=== PATIENT | male | born 1930 | race Caucasian/White ===

== ENCOUNTER → 2017-07-16 | Outpatient (CLI) | payer MEDICARE, BC ==
[2017-07-16 14:21] LABS: CH 34.2; CHCM 33.2; HDW 2.45; HGB 13.8 gm/dL (13.0-17.5); MCHC 32.9 g/dL (31.0-37.0); MCV 103.4 fL (80.0-100.0); Macrocytosis Slight; Mean Platelet Volume 6.4; RBC 4.06 m/uL (4.30-5.90); RDW 13.9 % (11.5-15.5); WBC 10.6 k/uL (3.8-10.6)
[2017-07-16 14:28] LABS: Appearance,Urine Cloudy (Clear); Bacteria,Urine Rare /hpf; Bilirubin,Urine Negative (Negative); Glucose,Urine (UA) Negative (Negative); Ketones,Urine Negative (Negative); Leukocyte Esterase,Urine Negative (Negative); Mucus,Urine Many /hpf; Nitrite,Urine Negative (Negative); PH, Urine 5.5 (5.0-8.0); Particle Count 12224; Protein,Urine Trace (Negative); RBC,Urine 2 /hpf (0-5); Specific Gravity,Urine 1.025 (1.001-1.035); Squamous Epithelial Cell,Urine <1 /hpf (0-4); UA Billing (MACRO vs. MICRO) MICRO; WBC,Urine 3 /hpf (0-5)
[2017-07-16 14:36] LABS: AST 19 U/L (17-59); Blood Urea Nitrogen 18 mg/dL (9-20); Chloride 103 mmol/L (98-107); Partial Thromboplastin Time 24.3 sec (22.0-30.0); Potassium 5.6 mmol/L (3.5-5.1); Prothrombin Time 10.3 sec (9.0-12.0); Sodium 142 mmol/L (137-145); Total Bilirubin 0.6 mg/dL (0.2-1.3)
[2017-07-16 14:45] LABS: ALT 32 U/L (21-72); Alkaline Phosphatase 129 U/L (38-126); Anion Gap 9 mmol/L; Carbon Dioxide 30 mmol/L (22-30); Glucose 98 mg/dL (74-99); Non-African American GFR(MDRD) >60 (>60 ml/min/1.73 sqM); Total Protein 6.9 g/dL (6.3-8.2)
== END | disposition home or self-care (01) ==
LOC: LABPAT 13:38
PROVIDERS: ATTEND Orthopaedic Surgery
DX: Z01.812 Encounter for preprocedural laboratory examination (principal); Z79.01 Long term (current) use of anticoagulants
CPT/HCPCS: 80053; 81001; 85027; 85610; 85730; 87070

== ENCOUNTER → 2017-07-27 | Outpatient (CLI) | payer MEDICARE, BC | END | disposition home or self-care (01) | LOC: LABWHC1 10:50 | PROVIDERS: ATTEND Family Medicine | DX: E87.6 Hypokalemia (principal) | CPT/HCPCS: 36415; 84132 ==

== ENCOUNTER 2017-07-28 09:44 | Inpatient (IN) | payer MEDICARE, BC ==
[2017-07-23 11:52] VITALS: BMI 24.3
[~2017-07-28 09:44] MED LIST: ACETAMINOPHEN TAB 500 MG TAB PO ONE; DEXAMETHASONE SOD PHOSPHATE 10 MG/ML 1 ML VIAL IV ONE; HYDROmorphone 1 MG/ML 1 ML SYRINGE IVP PRN; LIDOCAINE 1% 20 ML VIAL (10MG/ML) FOR IV START INTRADERMA PRN; MELOXICAM 7.5 MG TAB PO ONE; MIDAZOLAM 2 MG/2 ML VIAL IV PRN; ONDANSETRON 4 MG/2 ML VIAL IVP ONE; ROPIVACAINE 246.25 MG, EPINEPHrine 0.5 MG, KETOROLAC 30 MG, cloNIDine HCL/PF 80 MCG, WA... MISCELLANE ONE; SCOPOLAMINE 1.5MG/72HR PATCH TRANSDERM ONE; TRANEXAMIC ACID 1,000 MG in SODIUM CHLORIDE 0.9% 100 ML IVPB ONE; ceFAZolin 2 GM in SODIUM CHLORIDE 0.9% 100 ML IVPB ONE
[2017-07-28] MEDS: LACTATED RINGERS 1,000 ML IV SCH (10:51)
[2017-07-28] MEDS ORDERED: ROPIVACAINE 1,100 MG, SODIUM CHLORIDE 0.9% 330 ML MISCELLANE PRN ×2 (12:00)
--- NOTE | 2017-07-28 12:00 | P.ONQ ---
Anesthesiology Proc Note - PNB - Peripheral Nerve Block Performed Right Adductor Canal Infusion Indication: Acute Post-Operative Pain Sedation Type: Sedate with meaningful contact maintained Preparation: Sterile Prep Position: Supine Needle Types: On-Q Needle Size: 100mm (4") Needle Gauge: 18 Technique: Ultrasound Blood Aspirated: No Pain Paresthesia on Injection Noted: No Resistance on Injection: Normal Events: Uneventful and Well Tolerated
[2017-07-28] MEDS ORDERED: SODIUM CHLORIDE 0.9% 100 ML BAG ONE (12:48)
[2017-07-28] MEDS ORDERED: fentaNYL (PF) 50 MCG/ML 2 ML AMP ONE (12:48)
[2017-07-28] MEDS ORDERED: TRANEXAMIC ACID 1,000 MG/10 ML VIAL ONE (12:48)
[2017-07-28] MEDS ORDERED: PROPOFOL 10 MG/ML 20 ML VIAL IV ONE (12:48)
[2017-07-28] MEDS ORDERED: MIDAZOLAM 2 MG/2 ML VIAL ONE (12:48)
[2017-07-28] MEDS ORDERED: ceFAZolin 3,000 MG in SODIUM CHLORIDE 0.9% IRRIGATIO 3,000 ML IRRIGATION ONE (13:30)
[2017-07-28] MEDS ORDERED: LACTATED RINGERS 1,000 ML IV ONE (14:34)
[2017-07-28] MEDS ORDERED: HYDROcodone/APAP 5-325MG 1 EACH TAB PO PRN ×2 (14:41)
[2017-07-28] MEDS ORDERED: HYDROmorphone 1 MG/ML 1 ML SYRINGE IVP PRN ×2 (14:41)
[2017-07-28] MEDS ORDERED: hydrOXYzine PAMOATE 25 MG CAP PO PRN (14:41)
[2017-07-28] MEDS ORDERED: BISACODYL 10 MG SUPP RECTAL PRN (14:41)
[2017-07-28] MEDS ORDERED: NA PHOS,M-B/NA PHOS,DI-BA 133 ML ENEMA RECTAL PRN (14:41)
[2017-07-28] MEDS ORDERED: ONDANSETRON 4 MG/2 ML VIAL IVP PRN (14:41)
[2017-07-28] MEDS ORDERED: MAGNESIUM HYDROXIDE 2,400 MG/10 ML CUP PO PRN (14:41)
[2017-07-28] MEDS ORDERED: DIAZEPAM 5 MG TAB PO PRN ×2 (14:41)
[2017-07-28] MEDS ORDERED: NALOXONE 0.4 MG/ML 1 ML VIAL IV PRN (14:41)
--- NOTE | 2017-07-28 14:41 | P.OP ---
Date of Procedure: 07/28/17 Preoperative Diagnosis: Severe osteoarthritis of the right knee Postoperative Diagnosis: Severe osteoarthritis of the right knee Procedure(s) Performed: Right total knee arthroplasty Implants: Ashley [employer] Nephew Oxinium femoral component size 6, right Ashley & Nephew Genie II right nonporous tibial baseplate size 7 Ashley [employer] Nephew size 11 mm Legion XLPE high flexion articular insert, size 7-8 Ashley [employer] Nephew Genie II resurfacing patellar component, 32 mm All components were cemented using Reece bone cement.. The articulation is ceramic on polyethylene. Anesthesia: spinal Surgeon: Raleigh Cassidy Airfield Operations Specialist #1: Martine Georges Estimated Blood Loss (ml): 50 Pathology: other (Bone and cartilage) Condition: stable Disposition: PACU Indications for Procedure: After failure of conservative treatment we discussed the surgical and nonsurgical treatment options at length. Patient wishes to proceed with a total knee arthroplasty. Complications specific to this procedure were discussed at length, including but not limited to infection, bleeding, stiffness , and nerve injury. Patient is aware of all these complications and informed consent was obtained Operative Findings: The operative findings are consistent with severe osteoarthritis of the right knee Description of Procedure: Patient was seen in the preoperative area consent was reviewed and operative site was marked with a skin marker. An adductor canal pain catheter was placed by anesthesia in the preoperative area. Patient was then brought to the operating room and given preoperative antibiotics intravenously. A spinal anesthetic was administered by the anesthesia department. A tourniquet was placed on the upper thigh and the lower extremity was prepped and draped in usual sterile fashion. A gram of transexamic acid was given. A universal timeout was then performed which confirmed the patient's name, surgical site, ALLERGIES, and consent. The lower extremity was then exsanguinated and tourniquet was inflated to 250 mmHg. A standard and anterior midline approach to the knee was performed. The skin and subcutaneous tissue was dissected down to the patellar tendon. A medial parapatellar arthrotomy was then performed. The knee was then extended, the patellar was everted, and the knee was again flexed. Anterior horns of both menisci were excised, and a release was performed to the posterior medial aspect of the knee. On gross visual inspection, there was complete loss of articular cartilage in the medial and patellofemoral joint spaces. There was also significant cartilage damage in the lateral compartment. There were multiple periarticular osteophytes which were then removed with a Ronguer. The femoral canal was then opened with the appropriate drill, and the intramedullary femoral cutting guide was then placed and set for 4 of valgus. The distal femoral cutting block was then pinned in place, and the distal femur was then cut. The cutting block was then removed and the cut was checked for flatness. Next, the sizing guide was then placed and set for 3 external rotation based off of the epicondylar axis and Whitesides line. After the femur was sized, the appropriate 4-in-1 cutting block was then pinned in place. The anterior condyles were cut without notching. The posterior and chamfer cuts were performed while protecting the collateral ligaments. The cutting block was then removed, and the femoral canal was plugged with autologous bone. Attention was then directed to the tibia. The remaining ACL was removed with a Ronguer, and the tibia was then gently subluxed forward with a large bent knee retractor. Any remaining menisci was excised. The posterior lateral corner was cauterized in order to cauterize the lateral geniculate artery. The extra medullary tibial cutting guide was then placed, set for the appropriate rotation , slope, and depth of resection. The proximal tibia cutting guide was then pinned in place. Proximal tibia was then cut and sized. Next trials were then placed with the appropriate-sized insert. The knee was able to fully extend and flex to 130 and was stable throughout all range of motion. The knee was then extended, patella everted. Patella was then measured, and then using an osteotomy guide, the patella was cut at the appropriate level. The patella was then measured and drilled and the patella trial was then placed. The knee was then taken through range of motion with the patella trial and the patella tracked normally. The knee was then extended patella trial was then removed and the patella was everted. Knee was then flexed and lug holes were drilled through the femoral trial and the femoral trial was then removed. The tibial was then exposed, and the tibial broach guide was then pinned in place after it was set for the appropriate rotation to allow for the most coverage without overhang. The tibia was then reamed and broached. The cut surfaces of bone were then irrigated with pulsatile lavage. The posterior structures were injected with the ropivacaine solution. The components were then opened, the cement was mixed, and the components were then cemented in place. The cement was allowed to harden with the knee in full extension. While the cement was hardening, the remaining soft tissues were then injected with a ropivacaine solution, which consisted of 246.25 mg of ropivacaine, 0.5 mg of epinephrine, 30 mg of Toradol, 80 g of clonidine, and 48.45 mL of sterile water, for a total of 100 mL of fluid injected. After the cemented hardened. The tourniquet was released, and hemostasis was obtained. A second gram of transexamic acid was given. The knee was again irrigated. The knee was again taken through range of motion and found to be stable throughout all range of motion of 0-130, and the patella tracked normally. The fascia was then closed with #2 strata fix suture. The subcutaneous tissue was closed with 3-0 Vicryl and 3-0 strata fix. Dermabond tape was used for the skin and placed with the knee in flexion. The patient was placed in a sterile dressing. Patient was then transferred to recovery room in stable condition. The programs assistant MIKIE Montilla was required due the complexity surgery and the need for a skilled surgical services assistant. She assisted in positioning, draping, retraction, and closure of the wound.
--- NOTE | 2017-07-28 15:33 | XR ---
EXAMINATION TYPE: XR knee limited RT DATE OF EXAM: 07/28/2017 COMPARISON: None HISTORY: Postop alignment TECHNIQUE: 2 view right knee FINDINGS: Tibial femoral components are in place. No acute fractures are evident. Postsurgical curry es are evident. Vascular calcification is present. IMPRESSION: 1. No acute fractures post knee replacement..
[2017-07-28] MEDS: ceFAZolin 2 GM in SODIUM CHLORIDE 0.9% 100 ML IVPB SCH (18:02)
[2017-07-28] MEDS: SODIUM CHLORIDE 0.9% 1,000 ML IV SCH (18:03)
[2017-07-28] MEDS: SENNOSIDES-DOCUSATE SODIUM 1 EACH TAB PO SCH (22:01)
[2017-07-28] MEDS: ASPIRIN 325 MG TAB PO SCH (22:02)
[2017-07-29] MEDS: ceFAZolin 2 GM in SODIUM CHLORIDE 0.9% 100 ML IVPB SCH ×2
[2017-07-29] MEDS: LACTATED RINGERS 1,000 ML IV SCH (05:18)
[2017-07-29 07:11] LABS: Basophils % (A) 0 %; CH 33.7; CHCM 33.3; Eosinophils % (A) 0 %; HCT 31.1 % (39.0-53.0); HDW 2.49; Luc # (Auto) 0.17; Luc % (Auto) 2; Lymphocytes # (A) 1.6 k/uL (1.0-4.8); Lymphocytes % (A) 14 %; MCH 34.4 pg (25.0-35.0); MCHC 33.9 g/dL (31.0-37.0); MCV 101.4 fL (80.0-100.0); Macrocytosis Slight; Mean Platelet Volume 6.3; Monocytes # (A) 0.5 k/uL (0-1.0); Monocytes % (A) 4 %; Neutrophils # (A) 9.1 k/uL (1.3-7.7); Neutrophils % (A) 80 %; RBC 3.07 m/uL (4.30-5.90); RDW 13.8 % (11.5-15.5); WBC 11.3 k/uL (3.8-10.6); WBC (Perox) 11.82
[2017-07-29 07:18] LABS: HGB 10.5 gm/dL (13.0-17.5)
[2017-07-29 08:19] LABS: Glucose,Whole Blood 152 mg/dL (75-99)
[2017-07-29] MEDS: ASPIRIN 325 MG TAB PO SCH ×3 (09:00→21:38)
[2017-07-29] MEDS: MELOXICAM 7.5 MG TAB PO SCH (09:09)
--- NOTE | 2017-07-29 09:09 | P.PN ---
Subjective Principal diagnosis: Primary osteoarthritis of the right knee, status post right total knee arthroplasty. This is an 87-year-old male who is status post right total knee arthroplasty. This is postoperative day #1. Patient is seen and evaluated at bedside with Dr. Raleigh Cassidy. Today patient was left alone in the bathroom while complaining of dizziness and patient fell headfirst onto the bathroom floor. Patient sustained an abrasion to the right side forehead. Patient denies any knee pain after the fall. Patient does complain of a mild headache after the fall. Patient denies any fever/chills, visual changes, neck pain, numbness, weakness or tingling. Objective - Vital Signs Vital signs: Vital Signs Temp 97.4 F L 07/29/17 07:09 Pulse 74 07/29/17 07:09 Resp 16 07/29/17 07:09 BP 110/59 07/29/17 07:09 Pulse Ox 94 L 07/29/17 07:09 Intake & Output 07/28/17 07/29/17 07/29/17 18:59 06:59 18:59 Intake Total 1201 Output Total 50 400 Balance 1151 -400 Weight 74.843 kg Intake: IV 1201 Output: Urine 400 Estimated Blood Loss 50 Other: Voiding Method Urinal # Voids 0 1 - Exam On exam patient is in no acute distress. There is an abrasion to the right side forehead. Patient is answering questions appropriately. Calf is soft and nontender. Dressing is clean, dry, and intact. Patient has good range of motion of the right lower extremity. Neurovascular status intact. Patient has full foot and ankle motion. - Labs CBC & Chem 7: 07/29/17 06:15 Labs: Abnormal Lab Results - Last 24 Hours (Table) 07/29/17 07/29/17 Range/Units 06:15 07:59 WBC 11.3 H (3.8-10.6) k/uL RBC 3.07 L (4.30-5.90) m/uL Hgb 10.5 L D (13.0-17.5) gm/dL Hct 31.1 L (39.0-53.0) % MCV 101.4 H (80.0-100.0) fL Neutrophils # 9.1 H (1.3-7.7) k/uL POC Glucose (mg/dL) 152 H (75-99) mg/dL Assessment and Plan (1) Primary osteoarthritis of right knee Status: Acute (2) S/P total knee arthroplasty Status: Acute Plan: #1 Continue with routine postoperative care. #2 Anticoagulation with aspirin. #3 Physical therapy and CPM today. #4 Appreciate input from medicine. #5 Anticipate discharge home when medically stable.
--- NOTE | 2017-07-29 09:44 | CT ---
EXAMINATION TYPE: CT brain wo con DATE OF EXAM: 07/29/2017 COMPARISON: 04/05/2016 HISTORY: Fall CT DLP: [address] of the brain was performed. The ventricles, basal cisterns and sulci overlying the cerebral convexities demonstrate mild enlargem ent. There is no evidence for intracranial hemorrhage or sulcal effacement. There is decreased attenuation about the periventricular white matter and deep white matter of both c erebral hemispheres, compatible with chronic small vessel ischemia. Differential diagnosis does inclu de demyelination. No mass effects are seen.No midline shift. Osseous calvarium is intact. If symptoms persist consider MRI. IMPRESSION: 1. Age related atrophic and chronic small vessel ischemic change without acute intracranial process s een at this time.
[2017-07-29] MEDS: HYDROmorphone 1 MG/ML 1 ML SYRINGE IVP PRN (10:47)
--- NOTE | 2017-07-29 11:51 | P.PN ---
Progress Note - Text POD#1 S/P Rt TKA.Pt felt dizzy and fell this morning. His rt knee pain is tolerated with a combination of ACB and oral analgesics.
[2017-07-29] MEDS ORDERED: SODIUM CHLORIDE 0.9% (DEHP FRE 500 ML IV ONE (11:57)
--- NOTE | 2017-07-29 12:49 | P.CONS ---
History of Present Illness - Reason for Consult Consult date: 07/29/17 Medical management - Chief Complaint Right knee also arthritis - History of Present Illness This is a 87-year-old gentleman with past medical history noted below who presented to the hospital for elective total right knee arthroplasty. Patient is postoperative day #1. He tolerated the procedure well. Unfortunately, patient was up walking around with physical therapy this morning and felt dizzy and subsequently had a fall and hit his head. He did not loose consciousness. He was able to get up and go back to bed. He underwent computed tomography scan of the brain showed no acute intracranial findings. He had a small bruise/ small hematoma on the forehead at the right frontal area. He denies any headache. Blood pressure was noted to be low in the 90s to 100 systolic. Patient and his told me that his blood pressure usually runs low. She denies any problems with dizziness in the past. He said that he had history of coronary artery disease but he is not aware of heart failure or underlying valvular disease. Review of Systems Review of system: 14 points review of systems were obtained and were negative except to what were mentioned in the HPI. Past Medical History Past Medical History: Coronary Artery Disease (CAD), Hyperlipidemia, Osteoarthritis (OA) Additional Past Medical History / Comment(s): glaucoma depression History of Any Multi-Drug Resistant Organisms: None Reported Past Surgical History: Heart Catheterization With Stent, Joint Replacement Additional Past Surgical History / Comment(s): rt hip replacement, left knee replacement, 2 cardiac stents, operation on throat as child, laz cataracts Past Anesthesia/Blood Transfusion Reactions: No Reported Reaction Date of Last Stent Placement:: 2004 Past Psychological History: Depression Smoking Status: Former smoker Past Alcohol Use History: Rare Additional Past Alcohol Use History / Comment(s): quit smoking 50 yrs ago-1966, smoked for 17 yrs, 1PPD Past Drug Use History: None Reported - Past Family History Brother(s) Family Medical History: Cancer Medications and Allergies Home Medications Medication Instructions Recorded Confirmed Type Aspirin 81 mg PO BID 04/30/15 07/28/17 History Atorvastatin [Lipitor] 80 mg PO HS 04/30/15 07/28/17 History Cholecalciferol [Vitamin D3] 4,000 unit PO DAILY 04/30/15 07/28/17 History Polyethylene Glycol 3350 [Miralax] 17 gm PO DAILY 04/30/15 07/28/17 History Vits A,C,E/Lutein/Minerals 1 tab PO DAILY 04/30/15 07/28/17 History [Ocuvite with Lutein Tablet] Acetaminophen [Tylenol 8 Hour] 650 mg PO BID 07/23/17 07/28/17 History Cyanocobalamin (Vitamin B-12) 2,500 mcg PO SUTH 07/23/17 07/28/17 History [Vitamin B12] Mirabegron [Myrbetriq] 50 mg PO DAILY 07/23/17 07/28/17 History Sertraline [Zoloft] 50 mg PO DAILY 07/23/17 07/28/17 History Timolol 0.5% Ophth Soln [Timoptic 1 drop BOTH EYES DAILY 07/23/17 07/28/17 History 0.5% Ophth Soln] traMADol HCl [Ultram] 50 mg PO BID 07/23/17 07/28/17 History Allergies Allergy/AdvReac Type Severity Reaction Status Date / Time hydrocodone bitartrate AdvReac Hallucinati Verified 07/28/17 15:28 [From [place]] ons Physical Exam Vitals: Vital Signs Temp Pulse Resp BP Pulse Ox 07/29/17 11:12 97.6 F 61 15 96/55 99 07/29/17 09:54 97.6 F 67 14 98/53 99 07/29/17 07:09 97.4 F L 74 16 110/59 94 L 07/29/17 02:00 92/50 07/29/17 00:38 97.9 F 67 16 89/52 96 07/28/17 21:00 18 07/28/17 18:30 79 114/66 07/28/17 18:15 62 98/62 07/28/17 18:00 64 113/64 07/28/17 17:45 64 104/62 07/28/17 17:30 61 107/62 07/28/17 17:15 64 106/68 07/28/17 17:00 58 L 114/69 07/28/17 16:42 98.2 F 86 18 111/64 97 07/28/17 16:15 62 16 108/61 92 L 07/28/17 16:00 79 16 105/60 91 L 07/28/17 15:45 62 16 97/54 90 L 07/28/17 15:30 72 16 105/69 94 L 07/28/17 15:15 77 18 108/55 91 L 07/28/17 15:00 60 18 106/56 93 L 07/28/17 14:46 97.6 F 71 18 110/59 97 Intake and Output 07/28/17 07/29/17 07/29/17 22:59 06:59 14:59 Intake Total 100 Output Total 400 Balance -300 Intake: IV 100 Output: Urine 400 Other: Voiding Method Urinal # Voids 0 1 Weight 74.843 kg General: The patient is awake and alert, in no distress Eye: there is normal conjunctiva bilaterally. Neck: The neck is supple, there is no JVD. Cardiovascular: Normal S1-S2, no S3-S4, no murmurs. Respiratory: Lungs clear to auscultation bilaterally Gastrointestinal: Abdomen is soft, nontender Musculoskeletal: There is no pedal edema. Neurological:. Speech is normal. Skin: Skin is warm and dry Results CBC & Chem 7: 07/29/17 06:15 Labs: Abnormal Lab Results - Last 24 Hours (Table) 07/29/17 07/29/17 Range/Units 06:15 07:59 WBC 11.3 H (3.8-10.6) k/uL RBC 3.07 L (4.30-5.90) m/uL Hgb 10.5 L D (13.0-17.5) gm/dL Hct 31.1 L (39.0-53.0) % MCV 101.4 H (80.0-100.0) fL Neutrophils # 9.1 H (1.3-7.7) k/uL POC Glucose (mg/dL) 152 H (75-99) mg/dL Assessment and Plan Plan: 1. Postoperative day #1 status post total right knee arthroplasty. Continue postoperative care per orthopedic. 2. DVT prophylaxis currently on full dose aspirin twice daily per orthopedic protocol 3. Dizziness, falls, and head trauma this morning, computed tomography scan of the brain showed no acute intracranial findings. I would obtain echocardiogram to evaluate for ejection fraction and any underlying valvular disease 3. Hypotension: May be secondary to intravascular depletion and pain medication. We will continue IV fluid hydration. Ordered 0.9 normal saline 500 mL bolus now. Continue checking orthostatic blood pressure every shift. We will check cortisol level in the morning. Today, I reviewed his medication list lab work results. Continue current regimen. Repeat lab work in the morning. Patient and his at bedside were reassured and updated about his current condition.
[2017-07-29] MEDS: SODIUM CHLORIDE 0.9% 1,000 ML IV SCH ×3 (15:24→20:58)
[2017-07-29] MEDS: SENNOSIDES-DOCUSATE SODIUM 1 EACH TAB PO SCH (21:12)
[2017-07-29] MEDS: ATORVASTATIN 80 MG TAB PO SCH (21:12)
[2017-07-30] MEDS: HYDROmorphone 1 MG/ML 1 ML SYRINGE IVP PRN (02:19)
[2017-07-30] MEDS: SODIUM CHLORIDE 0.9% 1,000 ML IV SCH ×2 (05:03→17:05)
[2017-07-30 08:03] LABS: Basophils % (A) 0 %; CH 33.8; CHCM 32.8; Eosinophils # (A) 0.1 k/uL (0-0.7); Eosinophils % (A) 1 %; HCT 31.2 % (39.0-53.0); HGB 10.3 gm/dL (13.0-17.5); Luc # (Auto) 0.11; Luc % (Auto) 1; Lymphocytes # (A) 1.7 k/uL (1.0-4.8); Lymphocytes % (A) 22 %; MCH 34.2 pg (25.0-35.0); MCV 103.7 fL (80.0-100.0); Macrocytosis Slight; Mean Platelet Volume 6.6; Monocytes # (A) 0.4 k/uL (0-1.0); Monocytes % (A) 5 %; Neutrophils # (A) 5.7 k/uL (1.3-7.7); Neutrophils % (A) 71 %; RBC 3.01 m/uL (4.30-5.90); RDW 14.2 % (11.5-15.5)
[2017-07-30 08:12] LABS: ALT 23 U/L (21-72); AST 17 U/L (17-59); Alkaline Phosphatase 85 U/L (38-126); Anion Gap 6 mmol/L; Blood Urea Nitrogen 10 mg/dL (9-20); Calcium 8.6 mg/dL (8.4-10.2); Carbon Dioxide 27 mmol/L (22-30); Chloride 107 mmol/L (98-107); Glucose 84 mg/dL (74-99); Non-African American GFR(MDRD) >60 (>60 ml/min/1.73 sqM); Potassium 4.4 mmol/L (3.5-5.1); Sodium 140 mmol/L (137-145); Total Bilirubin 0.2 mg/dL (0.2-1.3); Total Protein 5.3 g/dL (6.3-8.2)
[2017-07-30] MEDS: LACTATED RINGERS 1,000 ML IV SCH (08:19)
[2017-07-30] MEDS: ASPIRIN 325 MG TAB PO SCH ×2 (09:13→20:18)
[2017-07-30] MEDS: POLYETHYLENE GLYCOL 3350 17 GM POWD.PACK PO SCH (09:13)
[2017-07-30] MEDS: SERTRALINE 50 MG TAB PO SCH (09:13)
--- NOTE | 2017-07-30 09:22 | P.PN ---
Subjective Principal diagnosis: Primary osteoarthritis of the right knee, status post right total knee arthroplasty. This is an 87-year-old male who is status post right total knee arthroplasty. This is postoperative day #2. Patient hit his head after a fall in the bathroom yesterday. CT was negative for any intracranial process. Patient is still having episodes of dizziness when out of bed. Patient reports knee pain today that is slightly worse than yesterday. Patient denies any fever/chills, visual changes, neck pain, numbness, weakness or tingling. Objective - Vital Signs Vital signs: Vital Signs Temp 97.4 F L 07/30/17 07:00 Pulse 87 07/30/17 07:00 Resp 16 07/30/17 07:00 BP 91/52 07/30/17 07:00 Pulse Ox 99 07/30/17 07:00 Intake & Output 07/29/17 07/30/17 07/30/17 18:59 06:59 18:59 Output Total 450 200 Balance -450 -200 Output: Urine 450 200 Other: Voiding Method Urinal # Voids 2 1 - Exam On exam patient is in no acute distress. There is a small abrasion to the right side forehead. Patient is answering questions appropriately. Calf is soft and nontender. Incision is clean, dry, and intact. Patient has mild soft tissue swelling around the right knee and has pain with range of motion. Neurovascular status intact. Patient has full foot and ankle motion. Dorsalis pedis pulse 2+. - Labs CBC & Chem 7: 07/30/17 07:13 07/30/17 07:13 Labs: Abnormal Lab Results - Last 24 Hours (Table) 07/30/17 07/30/17 Range/Units 07:13 07:13 RBC 3.01 L (4.30-5.90) m/uL Hgb 10.3 L (13.0-17.5) gm/dL Hct 31.2 L (39.0-53.0) % MCV 103.7 H (80.0-100.0) fL Total Protein 5.3 L (6.3-8.2) g/dL Albumin 2.8 L (3.5-5.0) g/dL Assessment and Plan (1) Primary osteoarthritis of right knee Status: Acute (2) S/P total knee arthroplasty Status: Acute Plan: #1 Continue with routine postoperative care. #2 Anticoagulation with aspirin. #3 Physical therapy and CPM today. #4 Appreciate input from medicine. #5 Anticipate discharge home when medically stable.
--- NOTE | 2017-07-30 10:11 | ECHOF ---
Referral Reason:dizzy MEASUREMENTS -------- HEIGHT: 175.3 cm WEIGHT: 74.8 kg BP: 96/55 RVIDd: 3.0 cm (< 3.3) IVSd: 0.8 cm (0.6 - 1.1) LVIDd: 4.8 cm (3.9 - 5.3) LVPWd: 1.1 cm (0.6 - 1.1) IVSs: 1.5 cm LVIDs: 3.6 cm LVPWs: 1.0 cm LA Diam: 2.9 cm (2.7 - 3.8) Ao Diam: 2.8 cm (2.0 - 3.7) AV Cusp: 2.0 cm (1.5 - 2.6) LA Diam: 3.4 cm (2.7 - 3.8) MV EXCURSION: 21.800 mm (> 18.000) MV EF SLOPE: 133 mm/s (70 - 150) EPSS: 0.2 cm MV E Phani: 0.62 m/s MV DecT: 221 ms MV A Phani: 0.81 m/s MV E/A Ratio: 0.77 RAP: 5.00 mmHg RVSP: 44.47 mmHg FINDINGS -------- Sinus rhythm. This was a techncally difficult study with suboptimal views, , Definity utilized for enhancement of images. The left ventricular size is normal. There is borderline concentric left ventricular hypertrophy. Overall left ventricular systolic function is normal with, an EF between 55 - 60 %. The right ventricle is normal in size. The left atrial size is normal. The right atrial size is normal. 1.5MG OF DEFINITY UTLIZED: 2 OR MORE WALL SEGMENTS NOT VISUALIZED. The aortic valve is trileaflet, and appears structurally normal. No aortic stenosis or regurgitation. Mild mitral regurgitation is present. Mild tricuspid regurgitation present. There is mild pulmonary hypertension. The right ventricular systolic pressure, as measured by Doppler, is 44.47mmHg. There is no pulmonic regurgitation present. The aortic root size is normal. There is no pericardial effusion. CONCLUSIONS -------- 1. This was a techncally difficult study with suboptimal views, , Definity utilized for enhancement of images. 2. The right ventricular systolic pressure, as measured by Doppler, is 44.47mmHg. 3. There is no pulmonic regurgitation present. 4. The aortic root size is normal. 5. There is no pericardial effusion. 6. The left ventricular size is normal. 7. There is borderline concentric left ventricular hypertrophy. 8. Overall left ventricular systolic function is normal with, an EF between 55 - 60 %. 9. 1.5MG OF DEFINITY UTLIZED: 2 OR MORE WALL SEGMENTS NOT VISUALIZED. 10. The aortic valve is trileaflet, and appears structurally normal. No aortic stenosis or regurgitation. 11. Mild mitral regurgitation is present. 12. Mild tricuspid regurgitation present. 13. There is mild pulmonary hypertension. ASSOCIATE MARKETING MANAGER: Vero Calle RDCS
[2017-07-30] MEDS: MELOXICAM 7.5 MG TAB PO SCH (10:21)
[2017-07-30] MEDS: TIMOLOL 0.5% OPHTH DROPS 5 ML BTL BOTH EYES SCH (10:21)
--- NOTE | 2017-07-30 10:44 | P.PN ---
Subjective This is a 87-year-old gentleman with past medical history noted below who presented to the hospital for elective total right knee arthroplasty. Patient is postoperative day #1. He tolerated the procedure well. Unfortunately, patient was up walking around with physical therapy this morning and felt dizzy and subsequently had a fall and hit his head. He did not loose consciousness. He was able to get up and go back to bed. He underwent computed tomography scan of the brain showed no acute intracranial findings. He had a small bruise/ small hematoma on the forehead at the right frontal area. He denies any headache. Blood pressure was noted to be low in the 90s to 100 systolic. Patient and his told me that his blood pressure usually runs low. She denies any problems with dizziness in the past. He said that he had history of coronary artery disease but he is not aware of heart failure or underlying valvular disease. 07/30/2017 patient still having some pain in that right leg. He worked with physical therapy and had again another episode of severe dizziness where he almost passed out. They had to lay him down. And patient felt better. Blood pressure was running low 91/52. They were unable to complete orthostatic blood pressures because of the dizziness. Patient yesterday did have a syncopal episode with the physical therapist with walking. Echo was checked showing an EF of 55-60% and mild pulmonary hypertensionand valvular problem. Patient denies any chest pain or shortness of breath. Denies any nausea or vomiting. He is passing gas no bowel movement yet. Denies any burning with urination. Objective - Vital Signs Vital signs: Vital Signs Temp 97.4 F L 07/30/17 07:00 Pulse 87 07/30/17 07:00 Resp 16 07/30/17 07:00 BP 91/52 07/30/17 07:00 Pulse Ox 99 07/30/17 07:00 Intake & Output 07/29/17 07/30/17 07/30/17 18:59 06:59 18:59 Output Total 450 200 Balance -450 -200 Output: Urine 450 200 Other: Voiding Method Urinal # Voids 2 1 - Exam Head normocephalic Neck supple Lungs clear to auscultation bilaterally no wheezing or crackles Heart regular rate and rhythm S1-S2, no rub or gallop Abdomen is soft nontender nondistended positive bowel sounds no hepatosplenomegaly Extremities no edema. Right knee incision showing dried blood. Otherwise clean dry and intact. No evidence of cellulitis Neuro alert and orientated to 3 - Labs CBC & Chem 7: 07/30/17 07:13 07/30/17 07:13 Labs: Abnormal Lab Results - Last 24 Hours (Table) 07/30/17 07/30/17 Range/Units 07:13 07:13 RBC 3.01 L (4.30-5.90) m/uL Hgb 10.3 L (13.0-17.5) gm/dL Hct 31.2 L (39.0-53.0) % MCV 103.7 H (80.0-100.0) fL Total Protein 5.3 L (6.3-8.2) g/dL Albumin 2.8 L (3.5-5.0) g/dL Assessment and Plan Plan: 1. Postoperative day #2 status post total right knee arthroplasty. Continue postoperative care per orthopedic. 2. DVT prophylaxis currently on full dose aspirin twice daily per orthopedic protocol 3. Dizziness, falls, and head trauma this morning, computed tomography scan of the brain showed no acute intracranial findings. Echo shows EF of 55-60% with mild pulmonary hypertension. No significant valvular disorder. Patient still having significant episodes of dizziness and near syncopal and syncopal episodes with physical therapy. IV Dilaudid Valium and Vistaril were all discontinued. These medications may also be contributing to patient's dizziness. Will monitor without them. Continue with the [place] for pain control 3. Hypotension: May be secondary to intravascular depletion and pain medication. We will continue IV fluid hydration. Ordered 0.9 normal saline 500 mL bolus now. Continue checking orthostatic blood pressure every shift. Cortisol level pending Patient is not ready for discharge yet I performed an examination of the patient and discussed their management with the physician Mix Maker. I have reviewed the Physician Mix Maker's notes and agree with the documented findings and plan of care
[2017-07-30] MEDS: CHOLECALCIFEROL 1,000 UNIT TAB PO SCH (12:21)
--- NOTE | 2017-07-30 16:53 | US ---
EXAMINATION TYPE: US carotid duplex BILAT DATE OF EXAM: 07/30/2017 COMPARISON: NONE CLINICAL HISTORY: 87-year-old male syncope. Constant dizziness. No history of stroke or TIA. TECHNIQUE: Carotid duplex ultrasound examination. Indirect Doppler criteria was utilized. FINDINGS: MUSEUM DIRECTOR NOTES: Plaque seen throughout bilateral CCA's and bulbs. Suboptimal visualization of lef t ECA due to plaque shadow. Elevated right ICA, bulb and ECA velocity. Elevated left proximal ICA, m id ICA, and bulb velocity. EXAM MEASUREMENTS: RIGHT: Peak Systolic Velocity (PSV) cm/sec ----- Right CCA: 114.7 ----- Right ICA: 222.7 ----- Right ECA: 141.7 ICA/CCA ratio: 1.9 RIGHT: End Diastole cm/sec ----- Right CCA: 27.5 ----- Right ICA: 41.5 ----- Right ECA: 11.6 LEFT: Peak Systolic Velocity (PSV) cm/sec ----- Left CCA: 99.5 ----- Left ICA: 189.3 ----- Left ECA: 121.0 ICA/CCA ratio: 1.9 LEFT: End Diastole cm/sec ----- Left CCA: 27.0 ----- Left ICA: 36.0 ----- Left ECA: 11.1 VERTEBRALS (direction of flow): Right Vertebral: Antegrade Left Vertebral: Antegrade Rhythm: Normal IMPRESSION: Prominent atherosclerotic changes throughout. Based on the measurements, unable to exclude moderate, 50-69% ICA stenoses, right greater than left. Criteria for Assigning % of Stenosis / Diameter reduction (Estimation based on the indirect measurements of the internal carotid artery velocities (ICA PSV). 1. Normal (no stenosis)=ICA PSV < 125 cm/s: ratio < 2.0: ICA EDV<40 cm/s. 2. Less than 50% stenosis=ICA PSV < 125 cm/s: ratio < 2.0: ICA EDV<40 cm/s. 3. 50 to 69% stenosis=ICA PSV of 125 to 230 cm/s: ration 2.0 ? 4.0: ICA EDV 40-100 cm/s. 4. Greater than 70% stenosis to near occlusion= ICA PSV > 230 cm/s: ratio > 4.0: ICA EDV > 100 cm/s. 5. Near occlusion= ICA PSV velocities may be low or undetectable: variable ratio and ICA EDV. 6. Total occlusion=unable to detect flow.
[2017-07-30] MEDS: ACETAMINOPHEN TAB 325 MG TAB PO PRN ×2 (17:58→23:56)
[2017-07-30] MEDS: SENNOSIDES-DOCUSATE SODIUM 1 EACH TAB PO SCH (20:18)
[2017-07-30] MEDS: ATORVASTATIN 80 MG TAB PO SCH (20:18)
[2017-07-31] MEDS: SODIUM CHLORIDE 0.9% 1,000 ML IV SCH ×3 (00:53→20:06)
[2017-07-31] MEDS: LACTATED RINGERS 1,000 ML IV SCH (02:36)
[2017-07-31] MEDS: ACETAMINOPHEN TAB 325 MG TAB PO PRN ×3 (06:31→18:17)
[2017-07-31 08:23] LABS: Basophils % (A) 0 %; CH 33.9; Eosinophils # (A) 0.1 k/uL (0-0.7); Eosinophils % (A) 2 %; HDW 2.41; HGB 9.2 gm/dL (13.0-17.5); Luc % (Auto) 1; Lymphocytes # (A) 1.3 k/uL (1.0-4.8); Lymphocytes % (A) 18 %; MCH 33.8 pg (25.0-35.0); MCHC 31.7 g/dL (31.0-37.0); MCV 106.4 fL (80.0-100.0); Macrocytosis Moderate; Mean Platelet Volume 6.8; Monocytes # (A) 0.4 k/uL (0-1.0); Monocytes % (A) 5 %; Neutrophils # (A) 5.3 k/uL (1.3-7.7); Neutrophils % (A) 73 %; RBC 2.72 m/uL (4.30-5.90); RDW 14.1 % (11.5-15.5); WBC 7.2 k/uL (3.8-10.6); WBC (Perox) 7.58
--- NOTE | 2017-07-31 08:36 | P.PN ---
Subjective Principal diagnosis: Primary osteoarthritis of the right knee, status post right total knee arthroplasty. This is an 87-year-old male who is status post right total knee arthroplasty. This is postoperative day #3. Patient was left alone in the bathroom 2 days ago and had a fall causing him to hit his head. CT was negative for any intracranial process. Patient continues to be dizzy upon standing and complains of soreness to the right knee. Today patient complains that he is having difficulty urinating. Patient states he feels pressure, but he is unable to use the urinal. Patient denies any fever/chills, visual changes, neck pain, numbness, weakness or tingling. Objective - Vital Signs Vital signs: Vital Signs Temp 98.3 F 07/31/17 07:00 Pulse 71 07/31/17 07:00 Resp 16 07/31/17 07:00 BP 127/59 07/31/17 07:00 Pulse Ox 97 07/31/17 07:00 Intake & Output 07/30/17 07/31/17 07/31/17 18:59 06:59 18:59 Intake Total 600 Output Total 200 350 Balance 400 -350 Weight 74.843 kg Intake: Intake, IV Titration 600 Amount Sodium Chloride 0.9% 1, 600 000 ml @ 100 mls/hr IV . Q10H [facility] Rx#:[id number] Output: Urine 200 350 - Exam On exam patient is in no acute distress. Dressing intact to the right side forehead. Patient is answering questions appropriately. Calf is soft and nontender. Dressing is clean, dry and intact. Patient has mild soft tissue swelling around the right knee and has pain with range of motion. Neurovascular status intact. Patient has full foot and ankle motion. Dorsalis pedis pulse 2+. Patient's abdomen is soft. - Labs CBC & Chem 7: 07/31/17 07:47 07/30/17 07:13 Labs: Abnormal Lab Results - Last 24 Hours (Table) 07/31/17 Range/Units 07:47 RBC 2.72 L (4.30-5.90) m/uL Hgb 9.2 L (13.0-17.5) gm/dL Hct 29.0 L (39.0-53.0) % MCV 106.4 H (80.0-100.0) fL Assessment and Plan (1) Primary osteoarthritis of right knee Status: Acute (2) S/P total knee arthroplasty Status: Acute Plan: #1 Continue with routine postoperative care. #2 Anticoagulation with aspirin. #3 Physical therapy and CPM today. #4 Appreciate input from medicine. #5 Urology consult pending #5 Anticipate discharge home when medically stable.
[2017-07-31 08:37] LABS: ALT 19 U/L (21-72); AST 16 U/L (17-59); Alkaline Phosphatase 76 U/L (38-126); Anion Gap 4 mmol/L; Blood Urea Nitrogen 9 mg/dL (9-20); Calcium 8.6 mg/dL (8.4-10.2); Carbon Dioxide 29 mmol/L (22-30); Chloride 109 mmol/L (98-107); Glucose 90 mg/dL (74-99); Non-African American GFR(MDRD) >60 (>60 ml/min/1.73 sqM); Potassium 4.2 mmol/L (3.5-5.1); Sodium 142 mmol/L (137-145); Total Bilirubin 0.3 mg/dL (0.2-1.3); Total Protein 4.9 g/dL (6.3-8.2)
[2017-07-31] MEDS ORDERED: traMADol 50 MG TAB PO PRN ×2 (08:38)
[2017-07-31] MEDS: ASPIRIN 325 MG TAB PO SCH ×2 (09:12→20:04)
[2017-07-31] MEDS: MELOXICAM 7.5 MG TAB PO SCH (09:12)
[2017-07-31] MEDS: POLYETHYLENE GLYCOL 3350 17 GM POWD.PACK PO SCH (09:12)
[2017-07-31] MEDS: SERTRALINE 50 MG TAB PO SCH (09:13)
[2017-07-31] MEDS: TIMOLOL 0.5% OPHTH DROPS 5 ML BTL BOTH EYES SCH (09:14)
--- NOTE | 2017-07-31 11:05 | P.PN ---
Subjective This is a 87-year-old gentleman with past medical history noted below who presented to the hospital for elective total right knee arthroplasty. Patient is postoperative day #1. He tolerated the procedure well. Unfortunately, patient was up walking around with physical therapy this morning and felt dizzy and subsequently had a fall and hit his head. He did not loose consciousness. He was able to get up and go back to bed. He underwent computed tomography scan of the brain showed no acute intracranial findings. He had a small bruise/ small hematoma on the forehead at the right frontal area. He denies any headache. Blood pressure was noted to be low in the 90s to 100 systolic. Patient and his told me that his blood pressure usually runs low. She denies any problems with dizziness in the past. He said that he had history of coronary artery disease but he is not aware of heart failure or underlying valvular disease. 07/30/2017 patient still having some pain in that right leg. He worked with physical therapy and had again another episode of severe dizziness where he almost passed out. They had to lay him down. And patient felt better. Blood pressure was running low 91/52. They were unable to complete orthostatic blood pressures because of the dizziness. Patient yesterday did have a syncopal episode with the physical therapist with walking. Echo was checked showing an EF of 55-60% and mild pulmonary hypertension and no significant valvular problem. Patient denies any chest pain or shortness of breath. Denies any nausea or vomiting. He is passing gas no bowel movement yet. Denies any burning with urination. 07/31/2017 patient still having some dizziness when he goes to stand up. Orthostatics were checked and were negative. Cardiology consult is pending. Carotid Doppler shows only a 50-69% internal carotid artery stenosis right greater than left. Pain medications including the Dilaudid as well as Vistaril and Valium were discontinued yesterday. Blood pressure this morning had shown improvement. Awaiting further cardiology recommendations. No bowel movement yet patient is passing gas. He did receive some MiraLAX this morning. Denies any chest pain or shortness of breath. Denies any nausea or vomiting. He did have urinary retention he was straight cathed 1 L out and urology was consulted. Objective - Vital Signs Vital signs: Vital Signs Temp 98.3 F 07/31/17 07:00 Pulse 71 07/31/17 07:00 Resp 16 07/31/17 07:00 BP 108/61 07/31/17 10:10 Pulse Ox 97 07/31/17 07:00 Intake & Output 07/30/17 07/31/17 07/31/17 18:59 06:59 18:59 Intake Total 600 Output Total 294 930 1101 Balance 400 -350 -1000 Weight 74.843 kg Intake: Intake, IV Titration 600 Amount Sodium Chloride 0.9% 1, 600 000 ml @ 100 mls/hr IV . Q10H [facility] Rx#:[id number] Output: Urine 438 916 4099 Straight 1000 - Exam Head normocephalic Neck supple Lungs clear to auscultation bilaterally no wheezing or crackles Heart regular rate and rhythm S1-S2, no rub or gallop Abdomen is soft nontender nondistended positive bowel sounds no hepatosplenomegaly Extremities no edema. Right knee incision showing dried blood. Otherwise clean dry and intact. No evidence of cellulitis Neuro alert and orientated to 3 - Labs CBC & Chem 7: 07/31/17 07:47 07/31/17 07:47 Labs: Abnormal Lab Results - Last 24 Hours (Table) 07/31/17 07/31/17 Range/Units 07:47 07:47 RBC 2.72 L (4.30-5.90) m/uL Hgb 9.2 L (13.0-17.5) gm/dL Hct 29.0 L (39.0-53.0) % MCV 106.4 H (80.0-100.0) fL Chloride 109 H (98-107) mmol/L Creatinine 0.61 L (0.66-1.25) mg/dL AST 16 L (17-59) U/L ALT 19 L (21-72) U/L Total Protein 4.9 L (6.3-8.2) g/dL Albumin 2.5 L (3.5-5.0) g/dL Assessment and Plan Plan: 1. Postoperative day #3 status post total right knee arthroplasty. Continue postoperative care per orthopedic. 2. DVT prophylaxis currently on full dose aspirin twice daily per orthopedic protocol 3. Dizziness, falls, and head trauma, computed tomography scan of the brain showed no acute intracranial findings. Echo shows EF of 55-60% with mild pulmonary hypertension. No significant valvular disorder. Patient still having significant episodes of dizziness and near syncopal and syncopal episodes with physical therapy. IV Dilaudid Valium and Vistaril were all discontinued. These medications may also be contributing to patient's dizziness. Will monitor without them. Continue with the [place] for pain control. Patient is still noting some dizziness. Orthostatics were checked and were negative. No significant arrhythmia on telemetry. Cardiology consult pending. Carotid Doppler shows a 50-69% internal carotid artery stenosis right greater than left 3. Hypotension: May be secondary to intravascular depletion and pain medication. We will continue IV fluid hydration. Ordered 0.9 normal saline 500 mL bolus now. Continue checking orthostatic blood pressure every shift. Cortisol level pending 4. Urinary retention: Patient was straight cathed this morning. Check post void residual. And agree with urology consult Patient is not ready for discharge yet I performed an examination of the patient and discussed their management with the physician Movement Assembly Final Inspector. I have reviewed the Physician Movement Assembly Final Inspector's notes and agree with the documented findings and plan of care
[2017-07-31] MEDS: FLUDROCORTISONE 0.1 MG TAB PO SCH (12:49)
[2017-07-31] MEDS: CHOLECALCIFEROL 1,000 UNIT TAB PO SCH (12:50)
--- NOTE | 2017-07-31 15:08 | P.CRDCN ---
History of Present Illness Consult date: 07/31/17 History of present illness: This is an 87-year-old [place] male. Past medical history significant for chronic stable CAD with stent in mid-RCA and proximal RCA in 2004, carotid endartectomy, dyslipidemia, urinary retention and history of hypertension at one time. We have been asked to see the patient in consultation for 2 episodes of dizziness. He apparently got up off the toilet 07/29 and became acutely dizzy and diaphoretic and fell forward on his head. CT of the brain was negative at that time. He was found to have hypotension immediately after that fall. Then again the following day while he was walking the halls with physical therapy he again became acutely dizzy and had to be held up by staff. His blood pressure was again hypotensive. He denies chest pain, shortness of berath or palpitations during either episode. Upon exam today with myself and Dr. Dodd together he is seen in no acute distress with his at the bedside. He has not had another episode of dizziness since the previous day. Of note all narcotics were discontinued yesterday after this event. Echocardiogram performed indicates preserved LV function with EF 55-60% with mild mitral regurgitation, mild tricuspid regurgitation, borderline LVH. Review of Systems Extensive review of systems performed, negative except mentioned in HPI. Past Medical History Past Medical History: Coronary Artery Disease (CAD), Hyperlipidemia, Osteoarthritis (OA) Additional Past Medical History / Comment(s): glaucoma depression History of Any Multi-Drug Resistant Organisms: None Reported Past Surgical History: Heart Catheterization With Stent, Joint Replacement Additional Past Surgical History / Comment(s): rt hip replacement, left knee replacement, 2 cardiac stents, operation on throat as child, laz cataracts Past Anesthesia/Blood Transfusion Reactions: No Reported Reaction Date of Last Stent Placement:: 2004 Past Psychological History: Depression Smoking Status: Former smoker Past Alcohol Use History: Rare Additional Past Alcohol Use History / Comment(s): quit smoking 50 yrs ago-1966, smoked for 17 yrs, 1PPD Past Drug Use History: None Reported - Past Family History Brother(s) Family Medical History: Cancer Medications and Allergies Home Medications Medication Instructions Recorded Confirmed Type Aspirin 81 mg PO BID 04/30/15 07/28/17 History Atorvastatin [Lipitor] 80 mg PO HS 04/30/15 07/28/17 History Cholecalciferol [Vitamin D3] 4,000 unit PO DAILY 04/30/15 07/28/17 History Polyethylene Glycol 3350 [Miralax] 17 gm PO DAILY 04/30/15 07/28/17 History Vits A,C,E/Lutein/Minerals 1 tab PO DAILY 04/30/15 07/28/17 History [Ocuvite with Lutein Tablet] Acetaminophen [Tylenol 8 Hour] 650 mg PO BID 07/23/17 07/28/17 History Cyanocobalamin (Vitamin B-12) 2,500 mcg PO SUTH 07/23/17 07/28/17 History [Vitamin B12] Mirabegron [Myrbetriq] 50 mg PO DAILY 07/23/17 07/28/17 History Sertraline [Zoloft] 50 mg PO DAILY 07/23/17 07/28/17 History Timolol 0.5% Ophth Soln [Timoptic 1 drop BOTH EYES DAILY 07/23/17 07/28/17 History 0.5% Ophth Soln] traMADol HCl [Ultram] 50 mg PO BID 07/23/17 07/28/17 History Fludrocortisone [Florinef] 0.1 mg PO DAILY tab 07/31/17 Rx Allergies Allergy/AdvReac Type Severity Reaction Status Date / Time hydrocodone bitartrate AdvReac Hallucinati Verified 07/28/17 15:28 [From [place]] ons Physical Exam Vitals: Vital Signs Temp Pulse Pulse Resp BP BP BP 07/31/17 10:10 108/61 07/31/17 10:06 99/57 07/31/17 10:05 98/61 07/31/17 10:03 114/56 07/31/17 10:00 107/65 07/31/17 07:00 98.3 F 71 16 07/31/17 00:30 98.2 F 72 16 07/30/17 19:15 98.5 F 82 16 07/30/17 15:00 98.7 F 75 16 BP Pulse Ox 07/31/17 10:10 07/31/17 10:06 07/31/17 10:05 07/31/17 10:03 07/31/17 10:00 07/31/17 07:00 127/59 97 07/31/17 00:30 109/55 96 07/30/17 19:15 105/62 96 07/30/17 15:00 101/63 98 Intake and Output 07/30/17 07/31/17 07/31/17 22:59 06:59 14:59 Output Total 350 1100 Balance -350 -1100 Output: Urine 350 1100 Straight 1000 Other: Voiding Method Urinal GENERAL: This is a 87-year-old male in no apparent distress at the time of my examination. HEENT: Head is atraumatic, normocephalic. Pupils are equal, round. Sclerae anicteric. Conjunctivae are clear. Mucous membranes of the mouth are moist. Neck is supple. There is no jugular venous distention. No carotid bruit is heard. LUNGS: Clear to auscultation no wheezes, rales or rhonchi. No chest wall tenderness is noted on palpation or with deep breathing. HEART: Regular rate and rhythm with systolic ejection murmur at the base, rubs or gallops. S1 and S2 heard. ABDOMEN: Soft, nontender. Bowel sounds are heard. No organomegaly noted. EXTREMITIES: 2+ peripheral pulses with no evidence of peripheral edema and no calf tenderness noted. Left knee wrapped. NEUROLOGIC: Patient is awake, alert and oriented x3. Results 07/31/17 07:47 07/31/17 07:47 Cardiac Enzymes 07/31/17 Range/Units 07:47 AST 16 L (17-59) U/L CBC 07/31/17 Range/Units 07:47 WBC 7.2 (3.8-10.6) k/uL RBC 2.72 L (4.30-5.90) m/uL Hgb 9.2 L (13.0-17.5) gm/dL Hct 29.0 L (39.0-53.0) % Plt Count 243 (150-450) k/uL Comprehensive Metabolic Panel 07/31/17 Range/Units 07:47 Sodium 142 (137-145) mmol/L Potassium 4.2 (3.5-5.1) mmol/L Chloride 109 H (98-107) mmol/L Carbon Dioxide 29 (22-30) mmol/L BUN 9 (9-20) mg/dL Creatinine 0.61 L (0.66-1.25) mg/dL Glucose 90 (74-99) mg/dL Calcium 8.6 (8.4-10.2) mg/dL AST 16 L (17-59) U/L ALT 19 L (21-72) U/L Alkaline Phosphatase 76 (38-126) U/L Total Protein 4.9 L (6.3-8.2) g/dL Albumin 2.5 L (3.5-5.0) g/dL Current Medications Generic Name Dose Route Start Last Admin Trade Name Freq PRN Reason Stop Dose Admin Acetaminophen 650 mg 07/30/17 17:44 07/31/17 12:49 Tylenol Tab PO 650 mg Q6HR PRN Administration Fever and/ or Pain Hydrocodone Bitart/Acetaminophen 1 each 07/28/17 14:41 [place] 5-325 PO Q6HR PRN Pain Scale 1 to 5 Hydrocodone Bitart/Acetaminophen 2 each 07/28/17 14:41 [place] 5-325 PO Q6HR PRN Pain Scale 6 to 10 Aspirin 325 mg 07/28/17 21:00 07/31/17 09:12 Aspirin PO 325 mg BID [facility] Administration Atorvastatin Calcium 80 mg 07/29/17 21:00 07/30/17 20:18 Lipitor PO 80 mg HS [facility] Administration Bisacodyl 10 mg 07/28/17 14:41 Dulcolax RECTAL DAILY PRN Constipation Cholecalciferol 4,000 unit 07/30/17 12:00 07/31/17 12:50 Vitamin D3 PO 4,000 unit 1200 [facility] Administration Ropivacaine 1,100 mg/ Sodium 0 mg 07/28/17 12:00 07/28/17 14:56 Chloride 330 ml MISCELLANE 1,100 mg Q2H PRN Administration Breakthrough Pain Fludrocortisone Acetate 0.1 mg 07/31/17 12:30 07/31/17 12:49 Florinef PO 0.1 mg DAILY [facility] Administration Lactated Ringer's 1,000 mls @ 20 mls/hr 07/28/17 05:35 07/31/17 02:36 Lactated Ringers IV Not Given .Q24H [facility] Sodium Chloride 1,000 mls @ 100 mls/hr 07/29/17 08:45 07/31/17 09:12 Saline 0.9% IV 100 mls/hr .Q10H [facility] Administration Lidocaine HCl 0.1 ml 07/28/17 05:35 07/28/17 10:30 .Xylocaine 1% Inj (10mg/Ml) For Iv Start INTRADERMA 0.1 ml PER PROTOCOL PRN Administration IV Start Magnesium Hydroxide 2,400 mg 07/28/17 14:41 Milk Of Magnesia PO DAILY PRN Constipation Meloxicam 7.5 mg 07/29/17 09:00 07/31/17 09:12 Mobic PO 7.5 mg DAILY [facility] Administration Naloxone HCl 0.2 mg 07/28/17 14:41 Narcan IV Q2M PRN Opioid Reversal Non-Formulary Medication 50 mg 07/30/17 09:00 Mirabegron [Myrbetriq] PO DAILY [facility] Ondansetron HCl 4 mg 07/28/17 14:41 Zofran IVP Q8HR PRN Nausea And Vomiting Polyethylene Glycol 17 gm 07/30/17 09:00 07/31/17 09:12 Miralax PO 17 gm DAILY [facility] Administration Senna/Docusate Sodium 2 each 07/28/17 21:00 07/30/17 20:18 Senokot-S PO Not Given HS [facility] Sertraline HCl 50 mg 07/30/17 09:00 07/31/17 09:13 Zoloft PO 50 mg DAILY [facility] Administration Sodium Biphosphate/Sodium Phosphate 133 ml 07/28/17 14:41 [place] Adult RECTAL DAILY PRN Constipation Timolol Maleate 1 drops 07/30/17 09:00 07/31/17 09:14 Timoptic BOTH EYES 1 drops DAILY [facility] Administration Tramadol HCl 50 mg 07/31/17 08:38 Ultram PO Q6H PRN Pain Scale 1 to 5 Tramadol HCl 100 mg 07/31/17 08:38 Ultram PO QID PRN Pain Scale 6 to 10 Intake and Output 07/30/17 07/31/17 07/31/17 22:59 06:59 14:59 Output Total 350 1100 Balance -350 -1100 Output: Urine 350 1100 Straight 1000 Other: Voiding Method Urinal 07/31/17 07:47 07/31/17 07:47 EKG Interpretations (text) EKG has been ordered. Assessment and Plan Plan: ASSESSMENT 1. Orthostatic hypotension 2. Chronic stable CAD 3. Dyslipidemia 4. Right knee replacement PLAN We recommend avoid narcotic pain medication, increase oral intake, start florinef 0.1 mg daily for volume expansion. This medication will not begin to show signs of improvement for up to 7 days. Provide stand-by assist until he feels stable. Avoid rising quickly. Increase salt intake. Thank you for this consultation. Nurse Practitioner note has been reviewed, I agree with a documented findings and plan of care. Patient was seen and examined.
[2017-07-31] MEDS: TAMSULOSIN 0.4 MG CAP.ER.24H PO SCH (18:18)
[2017-07-31] MEDS: SENNOSIDES-DOCUSATE SODIUM 1 EACH TAB PO SCH (20:04)
[2017-07-31] MEDS: ATORVASTATIN 80 MG TAB PO SCH (20:04)
--- NOTE | 2017-07-31 20:51 | P.GSCN ---
History of Present Illness Consult date: 07/31/17 Reason for Consult: Urinary retention History of present illness: The patient has a history of osteoarthritis and underwent elective right total knee arthroplasty under spinal anesthesia on 07/28. It is unclear whether a catheter was placed at the time of the surgery. The patient said that he was voiding following the surgery without difficulty the following day. Yesterday he apparently had more difficulty voiding and was developing some lower abdominal discomfort. He also fell while in physical therapy and hit his head. This morning he was bladder scanned and was noted to have 826 mL in his bladder at 8:30. He was in and out cathed for 1000 mL. He is more comfortable and has voided once since that time but the amount voided was less than 100 mL. The patient has no previous history of urinary retention. He says usually voids every 3-4 hours during the day and once at night. He has a history of urge incontinence which began several months ago and has been treated with Myrbetriq 50 mg daily. He says that this has been helpful as far as his leakage. He says he normally has a reasonably good urinary flow and usually feels he voids completely. He has been moving his bowels normally. Review of Systems - Constitutional Reports as per HPI - Gastrointestinal Denies abdominal pain, Denies constipation - Genitourinary Reports as per HPI Past Medical History Past Medical History: Coronary Artery Disease (CAD), Hyperlipidemia, Osteoarthritis (OA) Additional Past Medical History / Comment(s): glaucoma depression History of Any Multi-Drug Resistant Organisms: None Reported Past Surgical History: Heart Catheterization With Stent, Joint Replacement ( Left total knee arthroplasty) Additional Past Surgical History / Comment(s): rt hip replacement, left knee replacement, 2 cardiac stents, operation on throat as child, laz cataracts Past Anesthesia/Blood Transfusion Reactions: No Reported Reaction Date of Last Stent Placement:: 2004 Past Psychological History: Depression Smoking Status: Former smoker Past Alcohol Use History: Rare Additional Past Alcohol Use History / Comment(s): quit smoking 50 yrs ago-1966, smoked for 17 yrs, 1PPD Past Drug Use History: None Reported - Past Family History Brother(s) Family Medical History: Cancer Medications and Allergies Home Medications Medication Instructions Recorded Confirmed Type Aspirin 81 mg PO BID 04/30/15 07/28/17 History Atorvastatin [Lipitor] 80 mg PO HS 04/30/15 07/28/17 History Cholecalciferol [Vitamin D3] 4,000 unit PO DAILY 04/30/15 07/28/17 History Polyethylene Glycol 3350 [Miralax] 17 gm PO DAILY 04/30/15 07/28/17 History Vits A,C,E/Lutein/Minerals 1 tab PO DAILY 04/30/15 07/28/17 History [Ocuvite with Lutein Tablet] Acetaminophen [Tylenol 8 Hour] 650 mg PO BID 07/23/17 07/28/17 History Cyanocobalamin (Vitamin B-12) 2,500 mcg PO SUTH 07/23/17 07/28/17 History [Vitamin B12] Mirabegron [Myrbetriq] 50 mg PO DAILY 07/23/17 07/28/17 History Sertraline [Zoloft] 50 mg PO DAILY 07/23/17 07/28/17 History Timolol 0.5% Ophth Soln [Timoptic 1 drop BOTH EYES DAILY 07/23/17 07/28/17 History 0.5% Ophth Soln] traMADol HCl [Ultram] 50 mg PO BID 07/23/17 07/28/17 History Fludrocortisone [Florinef] 0.1 mg PO DAILY tab 07/31/17 Rx Allergies Allergy/AdvReac Type Severity Reaction Status Date / Time hydrocodone bitartrate AdvReac Hallucinati Verified 07/28/17 15:28 [From [place]] ons Surgical - Exam Vital Signs Temp Pulse Resp BP Pulse Ox 97.5 F L 62 16 124/60 98 07/28/17 10:34 07/28/17 10:34 07/28/17 10:34 07/28/17 10:34 07/28/17 10:34 - General well developed, obese - Respiratory normal respiratory effort - Abdomen Abdomen: soft, no tender, no masses - Genitourinary normal penis with no external lesions, testicles non-tender - Psychiatric memory intact Results - Labs 07/31/17 07:47 07/31/17 07:47 Abnormal Lab Results - Last 24 Hours (Table) 07/31/17 07/31/17 Range/Units 07:47 07:47 RBC 2.72 L (4.30-5.90) m/uL Hgb 9.2 L (13.0-17.5) gm/dL Hct 29.0 L (39.0-53.0) % MCV 106.4 H (80.0-100.0) fL Chloride 109 H (98-107) mmol/L Creatinine 0.61 L (0.66-1.25) mg/dL AST 16 L (17-59) U/L ALT 19 L (21-72) U/L Total Protein 4.9 L (6.3-8.2) g/dL Albumin 2.5 L (3.5-5.0) g/dL Diabetes panel 07/31/17 Range/Units 07:47 Sodium 142 (137-145) mmol/L Potassium 4.2 (3.5-5.1) mmol/L Chloride 109 H (98-107) mmol/L Carbon Dioxide 29 (22-30) mmol/L BUN 9 (9-20) mg/dL Creatinine 0.61 L (0.66-1.25) mg/dL Glucose 90 (74-99) mg/dL Calcium 8.6 (8.4-10.2) mg/dL AST 16 L (17-59) U/L ALT 19 L (21-72) U/L Alkaline Phosphatase 76 (38-126) U/L Total Protein 4.9 L (6.3-8.2) g/dL Albumin 2.5 L (3.5-5.0) g/dL Calcium panel 07/31/17 Range/Units 07:47 Calcium 8.6 (8.4-10.2) mg/dL Albumin 2.5 L (3.5-5.0) g/dL Pituitary panel 07/31/17 Range/Units 07:47 Sodium 142 (137-145) mmol/L Potassium 4.2 (3.5-5.1) mmol/L Chloride 109 H (98-107) mmol/L Carbon Dioxide 29 (22-30) mmol/L BUN 9 (9-20) mg/dL Creatinine 0.61 L (0.66-1.25) mg/dL Glucose 90 (74-99) mg/dL Calcium 8.6 (8.4-10.2) mg/dL Adrenal panel 07/31/17 Range/Units 07:47 Sodium 142 (137-145) mmol/L Potassium 4.2 (3.5-5.1) mmol/L Chloride 109 H (98-107) mmol/L Carbon Dioxide 29 (22-30) mmol/L BUN 9 (9-20) mg/dL Creatinine 0.61 L (0.66-1.25) mg/dL Glucose 90 (74-99) mg/dL Calcium 8.6 (8.4-10.2) mg/dL Total Bilirubin 0.3 (0.2-1.3) mg/dL AST 16 L (17-59) U/L ALT 19 L (21-72) U/L Alkaline Phosphatase 76 (38-126) U/L Total Protein 4.9 L (6.3-8.2) g/dL Albumin 2.5 L (3.5-5.0) g/dL Assessment and Plan (1) Postoperative urinary retention Narrative/Plan: The cause of the patient's postoperative urinary retention is not clear. He did not seem to have significant symptoms of bladder outflow obstruction preoperatively. He did have a spinal anesthetic and if he did not have a catheter at the time of the surgery it is possible he developed bladder overdistention in the postoperative period as he was unable to feel bladder pain. He is comfortable at the present time and will be monitored with the bladder scan. If he continues to be unable to void or has an excessive postvoid residual then he will be started on an alpha diana. Status: Acute
[2017-08-01 07:41] LABS: Basophils % (A) 0 %; CH 34.9; CHCM 32.8; Eosinophils # (A) 0.2 k/uL (0-0.7); Eosinophils % (A) 2 %; HDW 2.46; HGB 9.4 gm/dL (13.0-17.5); Luc # (Auto) 0.08; Luc % (Auto) 1; Lymphocytes # (A) 1.3 k/uL (1.0-4.8); Lymphocytes % (A) 18 %; MCH 33.3 pg (25.0-35.0); MCHC 31.2 g/dL (31.0-37.0); MCV 106.8 fL (80.0-100.0); Macrocytosis Moderate; Mean Platelet Volume 7.1; Monocytes # (A) 0.3 k/uL (0-1.0); Monocytes % (A) 4 %; Neutrophils # (A) 5.5 k/uL (1.3-7.7); Neutrophils % (A) 75 %; RBC 2.81 m/uL (4.30-5.90); RDW 14.7 % (11.5-15.5); WBC 7.3 k/uL (3.8-10.6); WBC (Perox) 8.01
[2017-08-01] MEDS: SERTRALINE 50 MG TAB PO SCH (07:55)
[2017-08-01] MEDS: MELOXICAM 7.5 MG TAB PO SCH (07:55)
[2017-08-01] MEDS: FLUDROCORTISONE 0.1 MG TAB PO SCH (07:55)
[2017-08-01] MEDS: TIMOLOL 0.5% OPHTH DROPS 5 ML BTL BOTH EYES SCH (07:56)
[2017-08-01 07:59] LABS: ALT 19 U/L (21-72); AST 17 U/L (17-59); Alkaline Phosphatase 75 U/L (38-126); Anion Gap 5 mmol/L; Blood Urea Nitrogen 8 mg/dL (9-20); Calcium 8.6 mg/dL (8.4-10.2); Carbon Dioxide 29 mmol/L (22-30); Chloride 108 mmol/L (98-107); Glucose 85 mg/dL (74-99); Non-African American GFR(MDRD) >60 (>60 ml/min/1.73 sqM); Potassium 4.5 mmol/L (3.5-5.1); Sodium 142 mmol/L (137-145); Total Bilirubin 0.3 mg/dL (0.2-1.3)
[2017-08-01] MEDS: ASPIRIN 325 MG TAB PO SCH ×2 (09:00→20:04)
--- NOTE | 2017-08-01 09:31 | P.PN ---
Progress Note - Text The patient is comfortable now but early this morning was noted to have a postvoid residual of approximately 800 mL and a catheter was reinserted. In view of this I believe it'll be best to leave a Lutz catheter in place for at least 48 hours prior to another voiding trial. The patient will be going to a rehab unit which should make it possible that his postvoid residuals can be followed using the bladder scan unit. He should be continued on tamsulosin.
--- NOTE | 2017-08-01 09:39 | P.PN ---
Subjective Principal diagnosis: Status post right total knee arthroplasty This is an 87-year-old male who is status post right total knee arthroplasty. This is postoperative day #4. He has no new complaints today. He is pleasant and appears to be alert and oriented seen at bedside this morning. Patient denies any fever/chills, visual changes, neck pain, numbness, weakness or tingling. Objective - Vital Signs Vital signs: Vital Signs Temp 97.9 F 08/01/17 01:10 Pulse 79 08/01/17 01:10 Resp 16 08/01/17 01:10 BP 117/53 08/01/17 01:10 Pulse Ox 95 08/01/17 01:10 Intake & Output 07/31/17 08/01/17 08/01/17 18:59 06:59 18:59 Intake Total 400 Output Total 1250 3375 Balance -1250 -2975 Intake: Oral 400 Output: Urine 1250 2575 Straight 1000 Post Void Residual 800 Other: Voiding Method Urinal - Exam Inspection of the right lower extremity shows benign surgical wound. There is no active bleeding or drainage. Neurovascular status is intact with motor and sensation throughout the right lower extremity. Calf is soft and nontender. 2 + dorsalis pedis and less than 2 second capillary refill is present. - Constitutional General appearance: Present: no acute distress - Psychiatric Psychiatric: Present: A&O x's 3, appropriate affect, intact judgment & insight - Labs CBC & Chem 7: 08/01/17 07:00 08/01/17 07:00 Labs: Abnormal Lab Results - Last 24 Hours (Table) 08/01/17 08/01/17 Range/Units 07:00 07:00 RBC 2.81 L (4.30-5.90) m/uL Hgb 9.4 L (13.0-17.5) gm/dL Hct 30.0 L (39.0-53.0) % MCV 106.8 H (80.0-100.0) fL Chloride 108 H (98-107) mmol/L BUN 8 L (9-20) mg/dL Creatinine 0.60 L (0.66-1.25) mg/dL ALT 19 L (21-72) U/L Total Protein 5.0 L (6.3-8.2) g/dL Albumin 2.5 L (3.5-5.0) g/dL Assessment and Plan (1) S/P total knee arthroplasty Narrative/Plan: He'll continue with routine postop orthopedic protocol including pain management , wound care, physical therapy, DVT prophylaxis and medical management. Expect that he will discharge to rehab on 08/03/2017 Status: Acute Time with Patient: Less than 30
[2017-08-01] MEDS: CHOLECALCIFEROL 1,000 UNIT TAB PO SCH (11:14)
[2017-08-01] MEDS: POLYETHYLENE GLYCOL 3350 17 GM POWD.PACK PO SCH (11:14)
--- NOTE | 2017-08-01 13:40 | P.PN ---
Subjective This is a 87-year-old gentleman with past medical history noted below who presented to the hospital for elective total right knee arthroplasty. Patient is postoperative day #1. He tolerated the procedure well. Unfortunately, patient was up walking around with physical therapy this morning and felt dizzy and subsequently had a fall and hit his head. He did not loose consciousness. He was able to get up and go back to bed. He underwent computed tomography scan of the brain showed no acute intracranial findings. He had a small bruise/ small hematoma on the forehead at the right frontal area. He denies any headache. Blood pressure was noted to be low in the 90s to 100 systolic. Patient and his told me that his blood pressure usually runs low. She denies any problems with dizziness in the past. He said that he had history of coronary artery disease but he is not aware of heart failure or underlying valvular disease. On 08/01/2017 patient is alert and oriented 3 he is sitting up in a chair he is complaining of constipation and complaining of pain in his right knee otherwise no complaints. He has not been ambulating today, he denies any chest pain shortness of breath or cough he denies any dizziness no nausea or vomiting no abdominal pain. Patient has urinary retention he had 800 mL of residual in his bladder Lutz catheter was inserted and should these there for at least 48 hours per urology recommendation he will also be continued on Flomax 0.4 mg daily. Objective - Vital Signs Vital signs: Vital Signs Temp 97.6 F 08/01/17 07:00 Pulse 90 08/01/17 07:00 Resp 15 08/01/17 07:00 BP 126/61 08/01/17 07:00 Pulse Ox 97 08/01/17 07:00 Intake & Output 07/31/17 08/01/17 08/01/17 18:59 06:59 18:59 Intake Total 400 Output Total 1250 3375 Balance -1250 -2975 Intake: Oral 400 Output: Urine 1250 2575 Straight 1000 Post Void Residual 800 Other: Voiding Method Urinal Indwelling Catheter - Exam In general patient is alert and oriented in no apparent distress HEENT head normocephalic and atraumatic Neck is supple no JVD no goiter no lymphadenopathy Chest exam is clear to auscultation no crackles no wheezing Cardiac exam reveals regular heart sounds S1 and S2 no gallops no murmurs Abdomen is soft nontender no organomegaly with normal bowel sounds Extremity exam reveals no edema no cyanosis or clubbing - Labs CBC & Chem 7: 08/01/17 07:00 08/01/17 07:00 Labs: Abnormal Lab Results - Last 24 Hours (Table) 08/01/17 08/01/17 Range/Units 07:00 07:00 RBC 2.81 L (4.30-5.90) m/uL Hgb 9.4 L (13.0-17.5) gm/dL Hct 30.0 L (39.0-53.0) % MCV 106.8 H (80.0-100.0) fL Chloride 108 H (98-107) mmol/L BUN 8 L (9-20) mg/dL Creatinine 0.60 L (0.66-1.25) mg/dL ALT 19 L (21-72) U/L Total Protein 5.0 L (6.3-8.2) g/dL Albumin 2.5 L (3.5-5.0) g/dL Assessment and Plan Plan: 1. Postoperative day #4 status post total right knee arthroplasty. Continue postoperative care per orthopedic. 2. DVT prophylaxis currently on full dose aspirin twice daily per orthopedic protocol 3. Dizziness, falls, and head trauma, computed tomography scan of the brain showed no acute intracranial findings. Echo shows EF of 55-60% with mild pulmonary hypertension. No significant valvular disorder. Patient still having significant episodes of dizziness and near syncopal and syncopal episodes with physical therapy. IV Dilaudid Valium and Vistaril were all discontinued. These medications may also be contributing to patient's dizziness. Will monitor without them. Continue with the [place] for pain control. Patient is still noting some dizziness. Orthostatics were checked and were negative. No significant arrhythmia on telemetry. Cardiology consult pending. Carotid Doppler shows a 50-69% internal carotid artery stenosis right greater than left 3. Hypotension: May be secondary to intravascular depletion and pain medication. We will continue IV fluid hydration. Ordered 0.9 normal saline 500 mL bolus now. Continue checking orthostatic blood pressure every shift. Cortisol level pending 4. Urinary retention: Patient was straight cathed this morning. Check post void residual. And agree with urology consult Patient is not ready for discharge yet
[2017-08-01] MEDS: LACTATED RINGERS 1,000 ML IV SCH (17:52)
[2017-08-01] MEDS: SODIUM CHLORIDE 0.9% 1,000 ML IV SCH ×2 (17:52→20:15)
[2017-08-01] MEDS: TAMSULOSIN 0.4 MG CAP.ER.24H PO SCH (17:54)
[2017-08-01] MEDS: SENNOSIDES-DOCUSATE SODIUM 1 EACH TAB PO SCH (20:00)
[2017-08-01] MEDS: ATORVASTATIN 80 MG TAB PO SCH (20:04)
[2017-08-02] MEDS: LACTATED RINGERS 1,000 ML IV SCH ×2 (01:57→22:09)
[2017-08-02] MEDS: SODIUM CHLORIDE 0.9% 1,000 ML IV SCH ×3 (03:57→20:36)
[2017-08-02 07:18] LABS: Basophils % (A) 0 %; CH 33.9; CHCM 32.1; Eosinophils # (A) 0.1 k/uL (0-0.7); Eosinophils % (A) 2 %; HCT 27.4 % (39.0-53.0); HDW 2.54; HGB 8.9 gm/dL (13.0-17.5); Luc % (Auto) 1; Lymphocytes # (A) 1.5 k/uL (1.0-4.8); Lymphocytes % (A) 19 %; MCH 34.6 pg (25.0-35.0); MCHC 32.5 g/dL (31.0-37.0); MCV 106.2 fL (80.0-100.0); Macrocytosis Moderate; Mean Platelet Volume 6.8; Monocytes # (A) 0.3 k/uL (0-1.0); Monocytes % (A) 4 %; Neutrophils # (A) 5.9 k/uL (1.3-7.7); Neutrophils % (A) 74 %; RBC 2.58 m/uL (4.30-5.90); RDW 14.4 % (11.5-15.5); WBC (Perox) 8.39
[2017-08-02 07:30] LABS: ALT 22 U/L (21-72); AST 17 U/L (17-59); Alkaline Phosphatase 70 U/L (38-126); Anion Gap 5 mmol/L; Blood Urea Nitrogen 8 mg/dL (9-20); Calcium 8.4 mg/dL (8.4-10.2); Carbon Dioxide 27 mmol/L (22-30); Chloride 109 mmol/L (98-107); Glucose 96 mg/dL (74-99); Non-African American GFR(MDRD) >60 (>60 ml/min/1.73 sqM); Potassium 4.2 mmol/L (3.5-5.1); Sodium 141 mmol/L (137-145); Total Bilirubin 0.4 mg/dL (0.2-1.3); Total Protein 4.7 g/dL (6.3-8.2)
[2017-08-02] MEDS: ACETAMINOPHEN TAB 325 MG TAB PO PRN (09:17)
[2017-08-02] MEDS: TIMOLOL 0.5% OPHTH DROPS 5 ML BTL BOTH EYES SCH (09:17)
[2017-08-02] MEDS: POLYETHYLENE GLYCOL 3350 17 GM POWD.PACK PO SCH (09:18)
[2017-08-02] MEDS: MELOXICAM 7.5 MG TAB PO SCH (09:18)
[2017-08-02] MEDS: FLUDROCORTISONE 0.1 MG TAB PO SCH (09:18)
[2017-08-02] MEDS: SERTRALINE 50 MG TAB PO SCH (09:18)
[2017-08-02] MEDS: ASPIRIN 325 MG TAB PO SCH ×2 (09:18→20:36)
--- NOTE | 2017-08-02 09:40 | P.PN ---
Subjective Principal diagnosis: Status post right total knee arthroplasty This is an 87-year-old male who is status post right total knee arthroplasty. This is postoperative day #5. He has no new complaints today. He is pleasant and appears to be alert and oriented seen at bedside this morning. Patient denies any fever/chills, visual changes, neck pain, numbness, weakness or tingling. Objective - Vital Signs Vital signs: Vital Signs Temp 98 F 08/02/17 07:00 Pulse 94 08/02/17 07:00 Resp 14 08/02/17 07:00 BP 104/65 08/02/17 07:00 Pulse Ox 96 08/02/17 07:00 Intake & Output 08/01/17 08/02/17 08/02/17 18:59 06:59 18:59 Intake Total 1400 1550 Output Total 600 1225 700 Balance 800 325 -700 Intake: Intake, IV Titration 1000 1000 Amount Sodium Chloride 0.9% 1, 1000 1000 000 ml @ 100 mls/hr IV . Q10H J[facility]ON Rx#:[id number] Oral 400 550 Output: Urine 600 725 700 Urine/Stool Mix 500 Other: Voiding Method Indwelling Catheter Indwelling Catheter # Bowel Movements 1 - Exam Inspection of the right lower extremity shows benign surgical wound. There is no active bleeding or drainage. Neurovascular status is intact with motor and sensation throughout the right lower extremity. Calf is soft and nontender. 2 + dorsalis pedis and less than 2 second capillary refill is present. - Constitutional General appearance: Present: no acute distress - Psychiatric Psychiatric: Present: A&O x's 3, appropriate affect, intact judgment & insight - Labs CBC & Chem 7: 08/02/17 06:42 08/02/17 06:42 Labs: Abnormal Lab Results - Last 24 Hours (Table) 08/02/17 08/02/17 Range/Units 06:42 06:42 RBC 2.58 L (4.30-5.90) m/uL Hgb 8.9 L (13.0-17.5) gm/dL Hct 27.4 L (39.0-53.0) % MCV 106.2 H (80.0-100.0) fL Chloride 109 H (98-107) mmol/L BUN 8 L (9-20) mg/dL Creatinine 0.63 L (0.66-1.25) mg/dL Total Protein 4.7 L (6.3-8.2) g/dL Albumin 2.3 L (3.5-5.0) g/dL Assessment and Plan (1) S/P total knee arthroplasty Narrative/Plan: He'll continue with routine postop orthopedic protocol including pain management , wound care, physical therapy, DVT prophylaxis and medical management. Expect that he will discharge to rehab on 08/03/2017 if ok with medical team Status: Acute Time with Patient: Less than 30
--- NOTE | 2017-08-02 16:25 | P.PN ---
Subjective This is a 87-year-old gentleman with past medical history noted below who presented to the hospital for elective total right knee arthroplasty. Patient is postoperative day #1. He tolerated the procedure well. Unfortunately, patient was up walking around with physical therapy this morning and felt dizzy and subsequently had a fall and hit his head. He did not loose consciousness. He was able to get up and go back to bed. He underwent computed tomography scan of the brain showed no acute intracranial findings. He had a small bruise/ small hematoma on the forehead at the right frontal area. He denies any headache. Blood pressure was noted to be low in the 90s to 100 systolic. Patient and his told me that his blood pressure usually runs low. She denies any problems with dizziness in the past. He said that he had history of coronary artery disease but he is not aware of heart failure or underlying valvular disease. On 08/01/2017 patient is alert and oriented 3 he is sitting up in a chair he is complaining of constipation and complaining of pain in his right knee otherwise no complaints. He has not been ambulating today, he denies any chest pain shortness of breath or cough he denies any dizziness no nausea or vomiting no abdominal pain. Patient has urinary retention he had 800 mL of residual in his bladder Lutz catheter was inserted and should these there for at least 48 hours per urology recommendation he will also be continued on Flomax 0.4 mg daily. On 08/02/2017 patient is feeling better he is alert and oriented 3 in no apparent distress he has been ambulating and not feeling dizzy his still has a Lutz catheter in He denies any chest pain or shortness of breath no nausea or vomiting no abdominal pain and no urinary symptoms Objective - Vital Signs Vital signs: Vital Signs Temp 98.4 F 08/02/17 14:34 Pulse 66 08/02/17 14:34 Resp 16 08/02/17 14:34 BP 99/61 08/02/17 14:34 Pulse Ox 98 08/02/17 14:34 Intake & Output 08/01/17 08/02/17 08/02/17 18:59 06:59 18:59 Intake Total 1400 1550 Output Total 600 1225 1300 Balance 800 325 -1300 Intake: Intake, IV Titration 1000 1000 Amount Sodium Chloride 0.9% 1, 1000 1000 000 ml @ 100 mls/hr IV . Q10H [facility] Rx#:[id number] Oral 400 550 Output: Urine 322 819 3028 Urine/Stool Mix 500 Other: Voiding Method Indwelling Catheter Indwelling Catheter # Bowel Movements 1 - Exam In general patient is alert and oriented in no apparent distress HEENT head normocephalic and atraumatic Neck is supple no JVD no goiter no lymphadenopathy Chest exam is clear to auscultation no crackles no wheezing Cardiac exam reveals regular heart sounds S1 and S2 no gallops no murmurs Abdomen is soft nontender no organomegaly with normal bowel sounds Extremity exam reveals no edema no cyanosis or clubbing - Labs CBC & Chem 7: 08/02/17 06:42 08/02/17 06:42 Labs: Abnormal Lab Results - Last 24 Hours (Table) 08/02/17 08/02/17 Range/Units 06:42 06:42 RBC 2.58 L (4.30-5.90) m/uL Hgb 8.9 L (13.0-17.5) gm/dL Hct 27.4 L (39.0-53.0) % MCV 106.2 H (80.0-100.0) fL Chloride 109 H (98-107) mmol/L BUN 8 L (9-20) mg/dL Creatinine 0.63 L (0.66-1.25) mg/dL Total Protein 4.7 L (6.3-8.2) g/dL Albumin 2.3 L (3.5-5.0) g/dL Assessment and Plan Plan: 1. Postoperative day #5 status post total right knee arthroplasty. Continue postoperative care per orthopedic. 2. DVT prophylaxis currently on full dose aspirin twice daily per orthopedic protocol 3. Dizziness, falls, and head trauma, computed tomography scan of the brain showed no acute intracranial findings. Echo shows EF of 55-60% with mild pulmonary hypertension. No significant valvular disorder. Patient still having significant episodes of dizziness and near syncopal and syncopal episodes with physical therapy. IV Dilaudid Valium and Vistaril were all discontinued. These medications may also be contributing to patient's dizziness. Will monitor without them. Continue with the [place] for pain control. Patient is still noting some dizziness. Orthostatics were checked and were negative. No significant arrhythmia on telemetry. Cardiology consult pending. Carotid Doppler shows a 50-69% internal carotid artery stenosis right greater than left 3. Hypotension: May be secondary to intravascular depletion and pain medication. We will continue IV fluid hydration. Ordered 0.9 normal saline 500 mL bolus now. Continue checking orthostatic blood pressure every shift. Cortisol level pending 4. Urinary retention: Patient was straight cathed this morning. Check post void residual. And agree with urology consult Patient is improving also double discharge to rehab tomorrow
[2017-08-02] MEDS: CHOLECALCIFEROL 1,000 UNIT TAB PO SCH (17:20)
[2017-08-02] MEDS: TAMSULOSIN 0.4 MG CAP.ER.24H PO SCH (17:20)
[2017-08-02] MEDS: SENNOSIDES-DOCUSATE SODIUM 1 EACH TAB PO SCH (20:36)
[2017-08-02] MEDS: ATORVASTATIN 80 MG TAB PO SCH (20:36)
[2017-08-03] MEDS: NON-FORMULARY DRUG (Mirabegron [Myrbetriq] 50 MG) PO SCH (06:58)
[2017-08-03 07:52] LABS: Basophils % (A) 0 %; CH 34.2; CHCM 32.5; Eosinophils # (A) 0.2 k/uL (0-0.7); Eosinophils % (A) 3 %; HCT 28.2 % (39.0-53.0); HDW 2.62; Luc # (Auto) 0.06; Luc % (Auto) 1; Lymphocytes # (A) 1.4 k/uL (1.0-4.8); Lymphocytes % (A) 20 %; MCH 33.7 pg (25.0-35.0); MCHC 31.8 g/dL (31.0-37.0); MCV 105.9 fL (80.0-100.0); Macrocytosis Moderate; Mean Platelet Volume 7.2; Monocytes # (A) 0.3 k/uL (0-1.0); Monocytes % (A) 4 %; Neutrophils # (A) 5.3 k/uL (1.3-7.7); Neutrophils % (A) 73 %; RBC 2.67 m/uL (4.30-5.90); WBC 7.2 k/uL (3.8-10.6); WBC (Perox) 7.52
[2017-08-03 08:15] LABS: ALT 26 U/L (21-72); AST 18 U/L (17-59); Alkaline Phosphatase 73 U/L (38-126); Anion Gap 6 mmol/L; Blood Urea Nitrogen 7 mg/dL (9-20); Calcium 8.3 mg/dL (8.4-10.2); Carbon Dioxide 27 mmol/L (22-30); Chloride 109 mmol/L (98-107); Glucose 84 mg/dL (74-99); Non-African American GFR(MDRD) >60 (>60 ml/min/1.73 sqM); Potassium 3.9 mmol/L (3.5-5.1); Sodium 142 mmol/L (137-145); Total Bilirubin 0.4 mg/dL (0.2-1.3); Total Protein 4.8 g/dL (6.3-8.2)
[2017-08-03] MEDS: SODIUM CHLORIDE 0.9% 1,000 ML IV SCH (08:18)
[2017-08-03] MEDS: TIMOLOL 0.5% OPHTH DROPS 5 ML BTL BOTH EYES SCH (08:20)
[2017-08-03] MEDS: ASPIRIN 325 MG TAB PO SCH ×2 (08:21→19:59)
[2017-08-03] MEDS: ACETAMINOPHEN TAB 325 MG TAB PO PRN ×2 (08:21→17:50)
[2017-08-03] MEDS: SERTRALINE 50 MG TAB PO SCH (08:21)
[2017-08-03] MEDS: MELOXICAM 7.5 MG TAB PO SCH (08:22)
[2017-08-03] MEDS: FLUDROCORTISONE 0.1 MG TAB PO SCH (08:22)
[2017-08-03] MEDS: POLYETHYLENE GLYCOL 3350 17 GM POWD.PACK PO SCH (08:23)
--- NOTE | 2017-08-03 09:46 | P.DS ---
Providers Date of admission: 07/28/17 09:44 Expected date of discharge: 08/03/17 Attending physician: Raleigh Cassidy Consults: 07/28/17 14:41 Consult Physician Routine Consulting Provider: Espinoza Mayberry Consult Reason/Comments: medical management Do you want consulting provider notified?: Yes 07/31/17 08:35 Consult Physician Routine Consulting Provider: Ignacio Jim Consult Reason/Comments: Unable to urinate, s/p tka Do you want consulting provider notified?: Yes Primary care physician: Sierra Cheney - Discharge Diagnosis(es) (1) Primary osteoarthritis of right knee Current Visit: Yes Status: Acute (2) S/P total knee arthroplasty Current Visit: Yes Status: Acute Priority: Medium Hospital Course: This is a 87-year-old male with known history of degenerative arthritis of the right knee. The patient presents for evaluation. After discussion and consideration patient elects to proceed with total knee arthroplasty. The patient is seen preoperatively by Dr. Cassidy and cleared for surgery. Patient is admitted to [facility] on 07/28/2017 for total knee arthroplasty. The procedures performed without complication or sequelae. Labs and vital signs are stable on day of discharge. On postoperative day #1 patient was left alone in the bathroom when feeling dizzy which caused him to fall and hit his head. A CT scan of the brain was negative for any acute intracranial process. Patient continued to have difficulty with dizziness upon standing but this has improved now. Patient has been up and walking with physical therapy. Patient was also having trouble with urinary retention. Urology consult was ordered and patient now has a Lutz catheter. On day of discharge patient's knee incision is healing well. There is minimal erythema. There is no drainage noted at this time. There is minimal soft tissue swelling to the knee. Patient has full foot and ankle motion without difficulty or pain. Neurovascular status to the right lower extremity is intact. Patient is discharged to rehab in good condition. Please see med rec for accurate list of home medications. Plan - Discharge Summary New Discharge Prescriptions: New Fludrocortisone [Florinef] 0.1 mg PO DAILY tab Aspirin 325 mg PO BID #60 tab Sennosides-Docusate Sodium [Senokot-S] 1 tab PO BID #60 tablet Acetaminophen [Tylenol] 1 - 2 mg PO Q4-6H PRN #90 tab PRN Reason: Pain No Action Vits A,C,E/Lutein/Minerals [Ocuvite with Lutein Tablet] 1 tab PO DAILY Polyethylene Glycol 3350 [Miralax] 17 gm PO DAILY Cholecalciferol [Vitamin D3] 4,000 unit PO DAILY Atorvastatin [Lipitor] 80 mg PO HS Aspirin 81 mg PO BID traMADol HCl [Ultram] 50 mg PO BID Mirabegron [Myrbetriq] 50 mg PO DAILY Timolol 0.5% Ophth Soln [Timoptic 0.5% Ophth Soln] 1 drop BOTH EYES DAILY Acetaminophen [Tylenol 8 Hour] 650 mg PO BID Sertraline [Zoloft] 50 mg PO DAILY Cyanocobalamin (Vitamin B-12) [Vitamin B12] 2,500 mcg PO SUTH Discharge Medication List Aspirin 81 mg PO BID 04/30/15 [History] Atorvastatin [Lipitor] 80 mg PO HS 04/30/15 [History] Cholecalciferol [Vitamin D3] 4,000 unit PO DAILY 04/30/15 [History] Polyethylene Glycol 3350 [Miralax] 17 gm PO DAILY 04/30/15 [History] Vits A,C,E/Lutein/Minerals [Ocuvite with Lutein Tablet] 1 tab PO DAILY 04/30/15 [History] Acetaminophen [Tylenol 8 Hour] 650 mg PO BID 07/23/17 [History] Cyanocobalamin (Vitamin B-12) [Vitamin B12] 2,500 mcg PO SUTH 07/23/17 [History] Mirabegron [Myrbetriq] 50 mg PO DAILY 07/23/17 [History] Sertraline [Zoloft] 50 mg PO DAILY 07/23/17 [History] Timolol 0.5% Ophth Soln [Timoptic 0.5% Ophth Soln] 1 drop BOTH EYES DAILY [History] traMADol HCl [Ultram] 50 mg PO BID 07/23/17 [History] Fludrocortisone [Florinef] 0.1 mg PO DAILY tab 07/31/17 [Rx] Acetaminophen [Tylenol] 1 - 2 mg PO Q4-6H PRN #90 tab 08/03/17 [Rx] Aspirin 325 mg PO BID #60 tab 08/03/17 [Rx] Sennosides-Docusate Sodium [Senokot-S] 1 tab PO BID #60 tablet 08/03/17 [Rx] Follow up Appointment(s)/Referral(s): Raleigh Cassidy DO [Doctor of Osteopathic Medicine] - 2 Weeks Ambulatory/Diagnostic Orders: Continuous Passive Motion (CPM) Machine [DME.AMB1] Time Frame: 2 Weeks, Location : Determined By Patient Activity/Diet/Wound Care/Special Instructions: Weightbearing as tolerated with a walker CPM 5-6h daily Daily dressing changes, keep incision clean and dry May shower if no drainage from incision [facility] with questions or concerns [phone] Discharge Disposition: TRANSFER TO SNF/ECF
--- NOTE | 2017-08-03 12:56 | XR ---
EXAMINATION TYPE: XR chest 2V DATE OF EXAM: 08/03/2017 COMPARISON: 06/07/2013 HISTORY: Shortness of breath TECHNIQUE: Frontal and lateral views of the chest are obtained. FINDINGS: Scattered senescent parenchymal changes noted. Hyperinflation compatible with COPD. Scattered calcified pleural plaques. Masslike density right perihilar region. Consider CT correlation . Heart size is stable. Mediastinal structures are stable and grossly unremarkable. No evidence for hilar prominence. Degenerative changes dorsal spine. IMPRESSION: 1. Scattered calcified pleural plaques. Masslike density right perihilar region. Consider CT correlat ion.
[2017-08-03] MEDS: CHOLECALCIFEROL 1,000 UNIT TAB PO SCH (14:11)
--- NOTE | 2017-08-03 14:43 | P.PN ---
Subjective Patient is been seen by me today for follow-up. He was supposed to be discharged to ECF unfortunately ECF of choice does not accept him with an indwelling Lutz catheter. He had problems with urinary retention in the past few days. He has been getting Myrbetric daily. Objective - Vital Signs Vital signs: Vital Signs Temp 97.4 F L 08/03/17 08:00 Pulse 90 08/03/17 08:00 Resp 16 08/03/17 08:00 BP 108/62 08/03/17 08:00 Pulse Ox 96 08/03/17 08:00 Intake & Output 08/02/17 08/03/17 08/03/17 18:59 06:59 18:59 Intake Total 3930 861 4648 Output Total 205 1500 Balance -950 -1250 1000 Intake: Intake, IV Titration 1100 1000 Amount Sodium Chloride 0.9% 1, 1100 1000 000 ml @ 100 mls/hr IV . Q10H [facility] Rx#:[id number] Oral 250 Output: Urine 2049 1500 Other: Voiding Method Indwelling Catheter Indwelling Catheter - Exam General: The patient is awake and alert, in no distress Eye: there is normal conjunctiva bilaterally. Neck: The neck is supple, there is no JVD. Cardiovascular: Normal S1-S2, no S3-S4, no murmurs. Respiratory: Lungs clear to auscultation bilaterally Gastrointestinal: Abdomen is soft, nontender Musculoskeletal: There is no pedal edema. Neurological:. Speech is normal. Skin: Skin is warm and dry - Labs CBC & Chem 7: 08/03/17 07:15 08/03/17 07:15 Labs: Abnormal Lab Results - Last 24 Hours (Table) 08/03/17 08/03/17 Range/Units 07:15 07:15 RBC 2.67 L (4.30-5.90) m/uL Hgb 9.0 L (13.0-17.5) gm/dL Hct 28.2 L (39.0-53.0) % MCV 105.9 H (80.0-100.0) fL Chloride 109 H (98-107) mmol/L BUN 7 L (9-20) mg/dL Creatinine 0.59 L (0.66-1.25) mg/dL Calcium 8.3 L (8.4-10.2) mg/dL Total Protein 4.8 L (6.3-8.2) g/dL Albumin 2.4 L (3.5-5.0) g/dL Assessment and Plan Plan: 1. Satus post total right knee arthroplasty. Continue postoperative care per orthopedic. 2. DVT prophylaxis currently on full dose aspirin twice daily per orthopedic protocol 3. Urinary retention: Started on tamsulosin. I would discontinue Myrbetric as the most common side effect is urinary retention. Plan for voiding trial tomorrow. Discussed with case managers plan for discharge. Today, I reviewed his medication list lab work results. Continue current regimen. Repeat lab work in the morning.
[2017-08-03] MEDS: TAMSULOSIN 0.4 MG CAP.ER.24H PO SCH (17:49)
[2017-08-03] MEDS: SENNOSIDES-DOCUSATE SODIUM 1 EACH TAB PO SCH (19:58)
[2017-08-03] MEDS: ATORVASTATIN 80 MG TAB PO SCH (19:58)
[2017-08-04] MEDS: LACTATED RINGERS 1,000 ML IV SCH (05:29)
[2017-08-04] MEDS: ACETAMINOPHEN TAB 325 MG TAB PO PRN (08:02)
--- NOTE | 2017-08-04 09:17 | P.PN ---
Subjective Principal diagnosis: Primary osteoarthritis of the right knee, status post right total knee arthroplasty. This is an 87-year-old male who is status post right total knee arthroplasty. This is postoperative day #7. Patient was left alone in the bathroom on postop day #1 and had a fall causing him to hit his head. CT was negative for any intracranial process. Patient reports dizziness this morning when he got up to use the restroom. Nursing states the patient had to be caught or else he would' ve fallen again. Patient did not hit his head or hit his knee or fall to the ground. Patient states he feels better now that he is laying down. Patient states he was able to urinate this morning. The Lutz catheter is now out. Patient denies any fever/chills, visual changes, neck pain, numbness, calf pain , weakness or tingling. Objective - Vital Signs Vital signs: Vital Signs Temp 99.0 F 08/04/17 07:17 Pulse 77 08/04/17 07:17 Resp 14 08/04/17 07:17 BP 111/58 08/04/17 07:17 Pulse Ox 99 08/04/17 07:17 Intake & Output 08/03/17 08/04/17 08/04/17 18:59 06:59 18:59 Intake Total 1700 1600 Output Total 3900 Balance 1700 -2300 Intake: Intake, IV Titration 1700 1600 Amount Sodium Chloride 0.9% 1, 1700 1600 000 ml @ 100 mls/hr IV . Q10H [facility] Rx#:[id number] Output: Urine 3900 Straight 3900 Other: Voiding Method Indwelling Catheter Indwelling Catheter Urinal - Exam On exam patient is in no acute distress. Abrasion to the right side forehead healing well. No surrounding erythema or drainage. Patient is answering questions appropriately. Incision is clean, dry and intact. There is mild drainage. There is 2+ pitting edema to the right lower extremity and soft tissue swelling to the right knee. Compartments are soft. There is faint ecchymosis to the lateral aspect of the right thigh. Calf is soft with mild tenderness. No pain with log roll of the right lower extremity. Neurovascular status intact. Patient has full foot and ankle motion. Dorsalis pedis pulse 2+ . - Labs CBC & Chem 7: 08/03/17 07:15 08/03/17 07:15 Assessment and Plan (1) Primary osteoarthritis of right knee Status: Acute (2) S/P total knee arthroplasty Status: Acute Plan: #1 Continue with routine postoperative care. #2. Doppler of right lower extremity pending. LAQUITA allen if doppler negative. #3 Anticoagulation with aspirin. #34 Physical therapy and CPM today. #5 Appreciate input from medicine and cardiology #6 Anticipate discharge to rehab when medically stable.
[2017-08-04] MEDS: ASPIRIN 325 MG TAB PO SCH ×2 (09:34→20:12)
[2017-08-04] MEDS: FLUDROCORTISONE 0.1 MG TAB PO SCH (09:34)
[2017-08-04] MEDS: MELOXICAM 7.5 MG TAB PO SCH (09:35)
[2017-08-04] MEDS: POLYETHYLENE GLYCOL 3350 17 GM POWD.PACK PO SCH (09:36)
[2017-08-04] MEDS: SERTRALINE 50 MG TAB PO SCH (09:37)
[2017-08-04] MEDS: TIMOLOL 0.5% OPHTH DROPS 5 ML BTL BOTH EYES SCH (09:37)
--- NOTE | 2017-08-04 11:08 | US ---
EXAMINATION TYPE: US venous doppler duplex LE RT DATE OF EXAM: 08/04/2017 10:45 AM COMPARISON: NONE CLINICAL HISTORY: pain, swelling. Pain and swelling s/p right total knee 1 week ago SIDE PERFORMED: Right TECHNIQUE: The lower extremity deep venous system is examined utilizing real time linear array sonog keith with graded compression, doppler sonography and color-flow sonography. VESSELS IMAGED: External Iliac Vein (EIV) Common Femoral Vein Deep Femoral Vein Greater Saphenous Vein * Femoral Vein Popliteal Vein Small Saphenous Vein * Proximal Calf Veins (* superficial vessels) Right Leg: Negative for DVT IMPRESSION: 1. No suspicious changes to suggest acute deep venous thrombosis right lower extremity.
[2017-08-04] MEDS ORDERED: SODIUM CHLORIDE 0.9% 500 ML IV ONE (11:20)
--- NOTE | 2017-08-04 13:21 | P.PN ---
Subjective This is an 86-year-old male pt we are seeing in follow up. We originally got involved with this patient for complaints of dizziness. He is s/p right knee replacement. Upon initial evaluation we started the patient on florinef 0.1 mg daily. It was advised at that time that this medication will take up to 7 days to take full effect. He apparently had another similar episode this morning while ambulating to the bathroom. He had his zamora catheter removed this morning at 0600 and immediately afterward he got up and attempted to walk to the bathroom to urinate. He said he was walking along with his walker and became acutely lightheaded and had to be assisted back to bed. Blood pressure at that time was 111/58 with heart rate 77. Orthostatic vital signs were also obtained and revealed a drop from supine to standing from 133/75 to 96/53. This is consistent with orthostatic hypotension. He has been in bed the rest of the day and denies any further episodes of dizziness. Objective - Vital Signs Vital signs: Vital Signs Temp 97.4 F L 08/04/17 11:34 Pulse 71 08/04/17 11:34 Resp 16 08/04/17 11:34 BP 117/85 08/04/17 11:34 Pulse Ox 97 08/04/17 11:34 Intake & Output 08/03/17 08/04/17 08/04/17 18:59 06:59 18:59 Intake Total 1700 1600 Output Total 3900 250 Balance 1700 -2300 -250 Intake: Intake, IV Titration 1700 1600 Amount Sodium Chloride 0.9% 1, 1700 1600 000 ml @ 100 mls/hr IV . Q10H [facility] Rx#:[id number] Output: Urine 3900 250 Straight 3900 Other: Voiding Method Indwelling Catheter Indwelling Catheter Urinal - Exam HEART: regular rate and rhythm with systolic ejection murmur at the base, no rubs or gallops. S1 and S2 heard. LUNGS: clear to auscultation b/l no wheezes, rales or rhonich. respirations equal and unlabored. - Labs CBC & Chem 7: 08/03/17 07:15 08/03/17 07:15 Assessment and Plan Plan: ASSESSMENT 1. Orthostatic hypotension 2. Chronic stable CAD 3. Dyslipidemia 4. Right knee replacement PLAN Florinef was added 9/22, this medication takes approximately 7 days to achieve full effectiveness. Midodrine 10 mg TID while awake can be considered if necessary. Continue with increased salt intake, encourage oral intake, avoid narcotic pain medication and antihypertensives. While medication is reaching peak effectiveness, stand-by assist should be provided. He should also be advised to avoid rising too quickly. Nurse Practitioner note has been reviewed, I agree with a documented findings and plan of care. Patient was seen and examined.
--- NOTE | 2017-08-04 14:00 | P.PN ---
Subjective Patient was dizzy this morning when he got up and eventually had a presyncope. He was put back in bed by nursing staff. Orthostatic were strongly positive. Patient denies chest pain or discomfort. Objective - Vital Signs Vital signs: Vital Signs Temp 97.4 F L 08/04/17 11:34 Pulse 71 08/04/17 11:34 Resp 16 08/04/17 11:34 BP 117/85 08/04/17 11:34 Pulse Ox 97 08/04/17 11:34 Intake & Output 08/03/17 08/04/17 08/04/17 18:59 06:59 18:59 Intake Total 1700 1600 Output Total 3900 250 Balance 1700 -2300 -250 Intake: Intake, IV Titration 1700 1600 Amount Sodium Chloride 0.9% 1, 1700 1600 000 ml @ 100 mls/hr IV . Q10H [facility] Rx#:[id number] Output: Urine 3900 250 Straight 3900 Other: Voiding Method Indwelling Catheter Indwelling Catheter Urinal - Exam General: The patient is awake and alert, in no distress Eye: there is normal conjunctiva bilaterally. Neck: The neck is supple, there is no JVD. Cardiovascular: Normal S1-S2, no S3-S4, no murmurs. Respiratory: Lungs clear to auscultation bilaterally Gastrointestinal: Abdomen is soft, nontender Musculoskeletal: There is no pedal edema. Neurological:. Speech is normal. Skin: Skin is warm and dry - Labs CBC & Chem 7: 08/03/17 07:15 08/03/17 07:15 Assessment and Plan Plan: 1. Satus post total right knee arthroplasty. Continue postoperative care per orthopedic. 2. DVT prophylaxis currently on full dose aspirin twice daily per orthopedic protocol 3. Urinary retention: Started on tamsulosin. I would discontinue Myrbetric as the most common side effect is urinary retention. Voiding trial today, patient is doing well so far 4. Orthostatic hypotension. With episodes of dizziness and presyncope. Patient was evaluated by cardiology on presentation. He underwent echocardiogram and carotid Doppler. He received multiple fluid boluses with minimal improvement. He was started on Florinef 0.1 mg daily. I would increase the dose to 0.2 mg daily and give him an additional bolus of 0.9 normal saline 500 mL today. Recheck orthostatic blood pressure in the morning. Today, I reviewed his medication list lab work results. Continue current regimen. Repeat lab work in the morning.
[2017-08-04] MEDS: CHOLECALCIFEROL 1,000 UNIT TAB PO SCH (14:01)
[2017-08-04] MEDS: TAMSULOSIN 0.4 MG CAP.ER.24H PO SCH (18:44)
[2017-08-04] MEDS: SENNOSIDES-DOCUSATE SODIUM 1 EACH TAB PO SCH (20:12)
[2017-08-04] MEDS: ATORVASTATIN 80 MG TAB PO SCH (20:12)
[2017-08-04 20:32] LABS: Glucose,Whole Blood 131 mg/dL (75-99)
[2017-08-05] MEDS: LACTATED RINGERS 1,000 ML IV SCH (05:41)
[2017-08-05] MEDS: ACETAMINOPHEN TAB 325 MG TAB PO PRN (06:53)
[2017-08-05 07:15] LABS: Glucose,Whole Blood 93 mg/dL (75-99)
[2017-08-05] MEDS: ASPIRIN 325 MG TAB PO SCH ×2 (08:53→20:41)
[2017-08-05] MEDS: MELOXICAM 7.5 MG TAB PO SCH (08:53)
[2017-08-05] MEDS: SERTRALINE 50 MG TAB PO SCH (08:54)
[2017-08-05] MEDS: TIMOLOL 0.5% OPHTH DROPS 5 ML BTL BOTH EYES SCH (08:54)
[2017-08-05] MEDS: FLUDROCORTISONE 0.1 MG TAB PO SCH (08:54)
--- NOTE | 2017-08-05 09:20 | P.PN ---
Subjective Principal diagnosis: Primary osteoarthritis of the right knee, status post right total knee arthroplasty. This is an 87-year-old male who is status post right total knee arthroplasty. This is postoperative day #8. Patient was left alone in the bathroom on postop day #1 and had a fall causing him to hit his head. CT was negative for any intracranial process. Patient reports continued dizziness and this has postponed his discharge to rehab. Patient has no new complaints today. Patient denies any fever/chills, visual changes, neck pain, numbness, calf pain , weakness or tingling. Objective - Vital Signs Vital signs: Vital Signs Temp 97.0 F L 08/05/17 07:06 Pulse 77 08/05/17 07:06 Resp 12 08/05/17 07:06 BP 120/63 08/05/17 07:06 Pulse Ox 98 08/05/17 07:06 Intake & Output 08/04/17 08/05/17 08/05/17 18:59 06:59 18:59 Intake Total 200 Output Total 250 1393 50 Balance -250 -1193 -50 Intake: Oral 200 Output: Urine 250 1150 25 Post Void Residual 243 25 Other: Voiding Method Urinal # Voids 150 4 1 - Exam On exam patient is in no acute distress. Patient is answering questions appropriately. Incision is clean, dry and intact. There is no drainage. There is 2+ pitting edema to the right lower extremity and soft tissue swelling to the right knee. Compartments are soft. Calf is soft and nontender. Neurovascular status intact. Patient has full foot and ankle motion. - Labs CBC & Chem 7: 08/03/17 07:15 08/03/17 07:15 Labs: Abnormal Lab Results - Last 24 Hours (Table) 08/04/17 Range/Units 20:20 POC Glucose (mg/dL) 131 H (75-99) mg/dL Assessment and Plan (1) Primary osteoarthritis of right knee Status: Acute (2) S/P total knee arthroplasty Status: Acute Plan: #1 Continue with routine postoperative care. #2. Doppler of left lower extremity negative. #3 Anticoagulation with aspirin. #34 Physical therapy and CPM today. #5 Appreciate input from medicine and cardiology #6 Anticipate discharge to rehab when medically stable.
--- NOTE | 2017-08-05 09:28 | P.DS ---
Providers Date of admission: 07/28/17 09:44 Expected date of discharge: 08/05/17 Attending physician: Raleigh Cassidy Consults: 07/28/17 14:41 Consult Physician Routine Consulting Provider: Espinoza Mayberry Consult Reason/Comments: medical management Do you want consulting provider notified?: Yes 07/31/17 08:35 Consult Physician Routine Consulting Provider: Ignacio Jim Consult Reason/Comments: Unable to urinate, s/p tka Do you want consulting provider notified?: Yes 08/04/17 06:28 Consult Physician Routine Consulting Provider: Reji Hoang Consult Reason/Comments: dizziness Do you want consulting provider notified?: Yes 08/04/17 09:25 Consult Physician Routine Consulting Provider: Mary Zuniga Consult Reason/Comments: dizziness Do you want consulting provider notified?: Yes Primary care physician: Sierra Cheney - Discharge Diagnosis(es) (1) Primary osteoarthritis of right knee Current Visit: Yes Status: Acute (2) S/P total knee arthroplasty Current Visit: Yes Status: Acute Priority: Medium Hospital Course: This is a 87-year-old male with known history of degenerative arthritis of the right knee. The patient presents for evaluation. After discussion and consideration patient elects to proceed with total knee arthroplasty. The patient is seen preoperatively by Dr. Cassidy and cleared for surgery. Patient is admitted to [facility] on 07/28/2017 for total knee arthroplasty. The procedures performed without complication or sequelae. Labs and vital signs are stable on day of discharge. Patient's discharge was postponed due to issues with orthostatic hypotension and urinary retention. Cardiology and urology consults have been obtained. An echocardiogram was done during his hospital stay. A Doppler of the right lower extremity was done and was negative. Patient did have a fall on postoperative day #1. Patient was left alone in the bathroom while feeling dizzy and this caused him to fall and hit his head on the ground. A computed tomography scan of the brain was done and was negative for any acute intracranial process. On day of discharge patient's knee incision is healing well. There is minimal erythema. There is no drainage noted at this time. There is minimal soft tissue swelling to the knee. Patient has full foot and ankle motion without difficulty or pain. Neurovascular status to the right lower extremity is intact. Patient is discharged to rehab in good condition. Please see med rec for accurate list of home medications. Plan - Discharge Summary New Discharge Prescriptions: New Fludrocortisone [Florinef] 0.1 mg PO DAILY tab Aspirin 325 mg PO BID #60 tab Sennosides-Docusate Sodium [Senokot-S] 1 tab PO BID #60 tablet Acetaminophen [Tylenol] 1 - 2 mg PO Q4-6H PRN #90 tab PRN Reason: Pain Tamsulosin [Flomax] 0.4 mg PO PC-SUPPER cap Continue Vits A,C,E/Lutein/Minerals [Ocuvite with Lutein Tablet] 1 tab PO DAILY Polyethylene Glycol 3350 [Miralax] 17 gm PO DAILY Cholecalciferol [Vitamin D3] 4,000 unit PO DAILY Atorvastatin [Lipitor] 80 mg PO HS traMADol HCl [Ultram] 50 mg PO BID Timolol 0.5% Ophth Soln [Timoptic 0.5% Ophth Soln] 1 drop BOTH EYES DAILY Sertraline [Zoloft] 50 mg PO DAILY Cyanocobalamin (Vitamin B-12) [Vitamin B12] 2,500 mcg PO SUTH Discontinued Aspirin 81 mg PO BID Mirabegron [Myrbetriq] 50 mg PO DAILY Acetaminophen [Tylenol 8 Hour] 650 mg PO BID Discharge Medication List Atorvastatin [Lipitor] 80 mg PO HS 04/30/15 [History] Cholecalciferol [Vitamin D3] 4,000 unit PO DAILY 04/30/15 [History] Polyethylene Glycol 3350 [Miralax] 17 gm PO DAILY 04/30/15 [History] Vits A,C,E/Lutein/Minerals [Ocuvite with Lutein Tablet] 1 tab PO DAILY 04/30/15 [History] Cyanocobalamin (Vitamin B-12) [Vitamin B12] 2,500 mcg PO SUTH 07/23/17 [History] Sertraline [Zoloft] 50 mg PO DAILY 07/23/17 [History] Timolol 0.5% Ophth Soln [Timoptic 0.5% Ophth Soln] 1 drop BOTH EYES DAILY [History] traMADol HCl [Ultram] 50 mg PO BID 07/23/17 [History] Fludrocortisone [Florinef] 0.1 mg PO DAILY tab 07/31/17 [Rx] Acetaminophen [Tylenol] 1 - 2 mg PO Q4-6H PRN #90 tab 08/03/17 [Rx] Aspirin 325 mg PO BID #60 tab 08/03/17 [Rx] Sennosides-Docusate Sodium [Senokot-S] 1 tab PO BID #60 tablet 08/03/17 [Rx] Tamsulosin [Flomax] 0.4 mg PO PC-SUPPER cap 08/03/17 [Rx] Follow up Appointment(s)/Referral(s): Raleigh Cassidy DO [Doctor of Osteopathic Medicine] - 2 Weeks Ambulatory/Diagnostic Orders: Continuous Passive Motion (CPM) Machine [DME.AMB1] Time Frame: 2 Weeks, Location : Determined By Patient Activity/Diet/Wound Care/Special Instructions: Weightbearing as tolerated with a walker CPM 5-6h daily Daily dressing changes, keep incision clean and dry May shower if no drainage from incision [facility] with questions or concerns [phone] Discharge Disposition: TRANSFER TO SNF/ECF
[2017-08-05] MEDS: POLYETHYLENE GLYCOL 3350 17 GM POWD.PACK PO SCH (09:34)
--- NOTE | 2017-08-05 10:16 | CONS ---
CONSULTATION DATE OF CONSULTATION: 08/04/2017. CHIEF COMPLAINT: Dizziness. HISTORY OF PRESENT ILLNESS: The patient is a pleasant 87-year-old male who was being evaluated today on 08/04/2017 by the neurology service for dizziness. The patient was admitted to the hospital on 07/28/2017 after he underwent a knee replacement surgery. Over the past few days, he has been having dizziness and had 2 episodes of syncope while he was ambulating to the restroom. The patient reports that he would feel very lightheaded and then he would pass out. He did suffer a head injury with his first syncopal spell and a CT scan of the brain was done, which was normal as far as this excuse abnormalities. There was evidence of generalized atrophy and small-vessel ischemic changes. A carotid Doppler was done, which showed bilateral stenosis measuring 50% to 69%. Orthostatics were done and the patient was found to have orthostatic hypotension. Cardiology has been consulted and he has been started on Florinef. The patient denies any lateralizing numbness or weakness and denies any headache. PAST MEDICAL HISTORY: Coronary artery disease, dyslipidemia, arthritis, depression, glaucoma, coronary artery stent placement, joint replacement surgeries. SOCIAL HISTORY: The patient is a former smoker. He rarely drinks alcohol. He denies any drug use. FAMILY HISTORY: Positive for cancer. HOME MEDICATIONS: Reviewed in the chart. ALLERGIES: NORCO. REVIEW OF SYSTEMS: As mentioned above and otherwise negative. PHYSICAL EXAM: Vital signs show a temperature of 97.4, pulse 102, respirations 16, blood pressure 97/61. GENERAL APPEARANCE: The patient is a well-developed, elderly male, who appears to be in no acute distress. HEENT: The patient does have a bandage on his right frontal region. No facial asymmetry is seen. NECK: Supple with no masses felt. CARDIOVASCULAR: Regular rate and rhythm. ABDOMEN: Nontender, nondistended. Extremities showed no edema or clubbing. NEUROLOGICAL: The patient is awake and oriented x3. Speech and language are normal. No lateralizing weakness is seen. No tremors or seizure-like activity is noticed. No facial asymmetry is seen on cranial nerve testing. IMPRESSION: 1. Dizziness. 2. Syncopal spells. 3. Orthostatic hypotension. RECOMMENDATION: The patient has been having orthostatic hypotension and has had 2 syncopal spells secondary to this. No seizure-like activity has been reported. Cardiology has already been consulted and the patient has been started on Florinef. No further neurological workup is needed at this time. His CT scan of the brain showed no acute intracranial abnormalities and the patient denies any headache or any other neurological symptoms. Thank you for allowing me to participate in the care of your patient. If you have any questions, please feel free to contact me. DUANE / ANDERS: [phone] /
--- NOTE | 2017-08-05 11:58 | P.PN ---
Progress Note - Text Patient interviewed and examined. Patient lying comfortably in bed. Still orthostatic. Started on Florinef late last week. I would suggest midodrine and milligrams 3 times a day during waking hours, this is a temporary pedal and should be stopped once Florinef shows full effect within a week or so. Please see full dictation by nurse practitioner
--- NOTE | 2017-08-05 12:22 | P.PN ---
Subjective Patient is doing well today. He is strongly orthostatic positive this morning. He was started on Midodrin by cardiology. Objective - Vital Signs Vital signs: Vital Signs Temp 96.6 F L 08/05/17 11:12 Pulse 66 08/05/17 11:12 Resp 17 08/05/17 11:12 BP 94/55 08/05/17 11:12 Pulse Ox 99 08/05/17 11:12 Intake & Output 08/04/17 08/05/17 08/05/17 18:59 06:59 18:59 Intake Total 200 Output Total 250 1393 50 Balance -250 -1193 -50 Intake: Oral 200 Output: Urine 250 1150 25 Post Void Residual 243 25 Other: Voiding Method Urinal # Voids 150 4 1 - Exam General: The patient is awake and alert, in no distress Eye: there is normal conjunctiva bilaterally. Neck: The neck is supple, there is no JVD. Cardiovascular: Normal S1-S2, no S3-S4, no murmurs. Respiratory: Lungs clear to auscultation bilaterally Gastrointestinal: Abdomen is soft, nontender Musculoskeletal: There is no pedal edema. Neurological:. Speech is normal. Skin: Skin is warm and dry - Labs CBC & Chem 7: 08/03/17 07:15 08/03/17 07:15 Labs: Abnormal Lab Results - Last 24 Hours (Table) 08/04/17 Range/Units 20:20 POC Glucose (mg/dL) 131 H (75-99) mg/dL Assessment and Plan Plan: 1. Satus post total right knee arthroplasty. Continue postoperative care per orthopedic. 2. DVT prophylaxis currently on full dose aspirin twice daily per orthopedic protocol 3. Urinary retention: Started on tamsulosin. I would discontinue Myrbetric as the most common side effect is urinary retention. Voiding trial today, patient is doing well so far 4. Orthostatic hypotension. With episodes of dizziness and presyncope. Patient was evaluated by cardiology on presentation. He underwent echocardiogram and carotid Doppler. He received multiple fluid boluses with minimal improvement. Midodrin 10 mg 3 times a day added to his regimen. Florinef dose was increased to 0.2 mg daily yesterday. We will continue to monitor for the rest of the day and check orthostatic blood pressure in the morning. If improving patient may be able to be discharged to [facility] tomorrow. Today, I reviewed his medication list lab work results. Continue current regimen. Repeat lab work in the morning.
[2017-08-05] MEDS: MIDODRINE 5 MG TAB PO SCH ×2 (13:58→17:10)
[2017-08-05] MEDS: CHOLECALCIFEROL 1,000 UNIT TAB PO SCH (13:58)
--- NOTE | 2017-08-05 14:09 | P.PN ---
Subjective This is an 86-year-old male pt we are seeing in follow up. We originally got involved with this patient for complaints of dizziness. He is s/p right knee replacement. Upon initial evaluation we started the patient on florinef 0.1 mg daily. This was increased per primary yesterday. He continues to be orthostatic. Objective - Vital Signs Vital signs: Vital Signs Temp 96.6 F L 08/05/17 11:12 Pulse 66 08/05/17 11:12 Resp 17 08/05/17 11:12 BP 94/55 08/05/17 11:12 Pulse Ox 99 08/05/17 11:12 Intake & Output 08/04/17 08/05/17 08/05/17 18:59 06:59 18:59 Intake Total 200 Output Total 250 1393 50 Balance -250 -1193 -50 Intake: Oral 200 Output: Urine 250 1150 25 Post Void Residual 243 25 Other: Voiding Method Urinal # Voids 150 4 1 - Exam HEART: regular rate and rhythm with systolic ejection murmur at the base, no rubs or gallops. S1 and S2 heard. LUNGS: clear to auscultation b/l no wheezes, rales or rhonich. respirations equal and unlabored. - Labs CBC & Chem 7: 08/03/17 07:15 08/03/17 07:15 Labs: Abnormal Lab Results - Last 24 Hours (Table) 08/04/17 Range/Units 20:20 POC Glucose (mg/dL) 131 H (75-99) mg/dL Assessment and Plan Plan: ASSESSMENT 1. Orthostatic hypotension 2. Chronic stable CAD 3. Dyslipidemia 4. Right knee replacement PLAN Florinef takes approximately 7 days to achieve full effectiveness. In the meantime we will start Midodrine 10 mg TID with meals. This is only a temporary addition until florinef takes full effect. Continue with increased salt intake, encourage oral intake, avoid narcotic pain medication and antihypertensives. While medication is reaching peak effectiveness, stand-by assist should be provided. He should also be advised to avoid rising too quickly. Nurse Practitioner note has been reviewed, I agree with a documented findings and plan of care. Patient was seen and examined.
[2017-08-05 15:04] VITALS: RESP 16
[2017-08-05] MEDS: TAMSULOSIN 0.4 MG CAP.ER.24H PO SCH (17:11)
[2017-08-05] MEDS: ATORVASTATIN 80 MG TAB PO SCH (20:41)
[2017-08-05] MEDS: SENNOSIDES-DOCUSATE SODIUM 1 EACH TAB PO SCH (20:41)
[2017-08-06] MEDS: LACTATED RINGERS 1,000 ML IV SCH (03:42)
[2017-08-06] MEDS: MIDODRINE 5 MG TAB PO SCH ×2 (08:42→12:25)
[2017-08-06] MEDS: ASPIRIN 325 MG TAB PO SCH (08:42)
[2017-08-06] MEDS: SERTRALINE 50 MG TAB PO SCH (08:42)
[2017-08-06] MEDS: MELOXICAM 7.5 MG TAB PO SCH (08:43)
[2017-08-06] MEDS: FLUDROCORTISONE 0.1 MG TAB PO SCH (08:43)
[2017-08-06] MEDS: POLYETHYLENE GLYCOL 3350 17 GM POWD.PACK PO SCH (08:43)
[2017-08-06] MEDS: TIMOLOL 0.5% OPHTH DROPS 5 ML BTL BOTH EYES SCH (08:43)
[2017-08-06] MEDS: ACETAMINOPHEN TAB 325 MG TAB PO PRN (08:47)
[2017-08-06 08:52] VITALS: TEMP 98.1
--- NOTE | 2017-08-06 10:34 | P.PN ---
Subjective unfortunately orthostatic blood pressure was not checked this morning when patient got up. He states that he is still slightly dizzy. I requested the nurse to recheck blood pressure orthostatic in the next hour. Objective - Vital Signs Vital signs: Vital Signs Temp 98.1 F 08/06/17 07:00 Pulse 76 08/06/17 07:00 Resp 16 08/06/17 07:00 BP 112/67 08/06/17 07:00 Pulse Ox 98 08/06/17 07:00 Intake & Output 08/05/17 08/06/17 08/06/17 18:59 06:59 18:59 Intake Total 600 400 Output Total 50 550 Balance 550 -150 Weight 74.843 kg Intake: Oral 600 400 Output: Urine 25 550 Post Void Residual 25 Other: Voiding Method Urinal # Voids 1 2 - Exam General: The patient is awake and alert, in no distress Eye: there is normal conjunctiva bilaterally. Neck: The neck is supple, there is no JVD. Cardiovascular: Normal S1-S2, no S3-S4, no murmurs. Respiratory: Lungs clear to auscultation bilaterally Gastrointestinal: Abdomen is soft, nontender Musculoskeletal: There is no pedal edema. Neurological:. Speech is normal. Skin: Skin is warm and dry - Labs CBC & Chem 7: 08/03/17 07:15 08/03/17 07:15 Assessment and Plan Plan: 1. Satus post total right knee arthroplasty. Continue postoperative care per orthopedic. 2. DVT prophylaxis currently on full dose aspirin twice daily per orthopedic protocol 3. Urinary retention: Started on tamsulosin. I would discontinue Myrbetric as the most common side effect is urinary retention. Voiding trial today, patient is doing well so far 4. Orthostatic hypotension. With episodes of dizziness and presyncope. Patient was evaluated by cardiology on presentation. He underwent echocardiogram and carotid Doppler. He received multiple fluid boluses with minimal improvement. Midodrin 10 mg 3 times a day added to his regimen. Florinef dose was increased to 0.2 mg daily. Patient was counseled extensively dissected to the side of the bed for 2 minutes writing to getting up and after standing up staying in place for a minute or 2 to make sure that he is not dizzy before start walking. Today, I reviewed his medication list lab work results. Continue current regimen. Repeat lab work in the morning.
[2017-08-06 11:53] VITALS: BP 96/58; PULSE 95
[2017-08-06] MEDS: CHOLECALCIFEROL 1,000 UNIT TAB PO SCH (12:25)
== END 2017-08-06 13:15 | disposition swing bed (61) | DRG 470 ==
LOC: 2ORMAIN 09:44 → 3SUR 14:37
PROVIDERS: ADMIT Orthopaedic Surgery; ATTEND Orthopaedic Surgery
PROC: 0SRC0J9 Replacement of Right Knee Joint with Synthetic Substitute, Cemented, Open Approach (ICD-10-PCS; principal; 2017-07-28 12:15)
DX: M17.11 Unilateral primary osteoarthritis, right knee (principal); I27.2 Other secondary pulmonary hypertension; I08.1 Rheumatic disorders of both mitral and tricuspid valves; F32.9 Major depressive disorder, single episode, unspecified; E78.5 Hyperlipidemia, unspecified; K21.9 Gastro-esophageal reflux disease without esophagitis; H40.9 Unspecified glaucoma; I95.1 Orthostatic hypotension; N99.89 Other postprocedural complications and disorders of genitourinary system; R33.8 Other retention of urine; S00.83XA Contusion of other part of head, initial encounter; N39.41 Urge incontinence; I25.10 Atherosclerotic heart disease of native coronary artery without angina pectoris; Z79.82 Long term (current) use of aspirin; Z79.899 Other long term (current) drug therapy; Z87.891 Personal history of nicotine dependence; Z95.5 Presence of coronary angioplasty implant and graft; Z85.828 Personal history of other malignant neoplasm of skin; Z96.641 Presence of right artificial hip joint; Z96.652 Presence of left artificial knee joint; Z88.5 Allergy status to narcotic agent; Z98.42 Cataract extraction status, left eye; Z98.41 Cataract extraction status, right eye; W19.XXXA Unspecified fall, initial encounter; Y92.002 Bathroom of unspecified non-institutional (private) residence as the place of occurrence of the external cause; I65.21 Occlusion and stenosis of right carotid artery; K59.00 Constipation, unspecified
CPT/HCPCS: 36415; 70450; 71020; 80053; 82533; 84132; 85025; 88300; 93005; 93306; 93880

== ENCOUNTER 2017-08-16 19:25 | Inpatient (IN) | payer MEDICARE, BC ==
[2017-08-16] MEDS ORDERED: MORPHINE SULFATE 2 MG/ML SYRINGE IV PRN (19:35)
[2017-08-16] MEDS ORDERED: IPRATROPIUM-ALBUTEROL 3 ML NEB INHALATION STA (19:35)
[2017-08-16] MEDS ORDERED: PNEUMONIA PROTOCOL UTILIZED 1 EACH MISC PO PRN (19:35)
--- NOTE | 2017-08-16 19:38 | ED ---
General Adult HPI - General Chief complaint: Shortness of Breath Stated complaint: SOB Time Seen by Provider: 08/16/17 19:33 Source: patient, EMS, RN notes reviewed, old records reviewed Mode of arrival: EMS Limitations: no limitations - History of Present Illness Initial comments: This is an 87-year-old male to the ER for evaluation. Patient presents here fevers or shortness of breath, increased respiratory cough and congestion. Patient has severe shortness of breath and difficulty to give story at this point secondary to clinical condition. Patient does admit to chest pain. Fever. - Related Data Home Medications Medication Instructions Recorded Confirmed Atorvastatin [Lipitor] 80 mg PO HS 04/30/15 08/16/17 Cholecalciferol [Vitamin D3] 2,000 unit PO BID 04/30/15 08/16/17 Polyethylene Glycol 3350 [Miralax] 17 gm PO DAILY 04/30/15 08/16/17 Vits A,C,E/Lutein/Minerals 1 tab PO DAILY 04/30/15 08/16/17 [Ocuvite with Lutein Tablet] Cyanocobalamin (Vitamin B-12) 2,500 mcg PO SUTH 07/23/17 08/16/17 [Vitamin B12] Sertraline [Zoloft] 50 mg PO HS 07/23/17 08/16/17 Timolol 0.5% Ophth Soln [Timoptic 1 drop BOTH EYES DAILY 07/23/17 08/16/17 0.5% Ophth Soln] traMADol HCl [Ultram] 50 mg PO Q6H PRN 07/23/17 08/16/17 Aspirin 81 mg PO BID 08/16/17 08/16/17 Previous Rx's Medication Instructions Recorded Sennosides-Docusate Sodium 1 tab PO BID #60 tablet 08/03/17 [Senokot-S] Tamsulosin [Flomax] 0.4 mg PO PC-SUPPER cap 08/03/17 Acetaminophen Tab [Tylenol] 650 mg PO Q6HR PRN tab 08/06/17 Fludrocortisone [Florinef] 0.2 mg PO DAILY #30 tab 08/06/17 Midodrine [ProAmatine] 10 mg PO AC-TID #90 tab 08/06/17 Allergies Allergy/AdvReac Type Severity Reaction Status Date / Time hydrocodone bitartrate AdvReac Hallucinati Verified 08/16/17 20:58 [From [place]] ons Review of Systems ROS Statement: Those systems with pertinent positive or pertinent negative responses have been documented in the HPI. ROS Other: All systems not noted in ROS Statement are negative. Past Medical History Past Medical History: Coronary Artery Disease (CAD), Hyperlipidemia, Osteoarthritis (OA) Additional Past Medical History / Comment(s): glaucoma depression History of Any Multi-Drug Resistant Organisms: None Reported Past Surgical History: Heart Catheterization With Stent, Joint Replacement Additional Past Surgical History / Comment(s): rt hip replacement, left knee replacement, 2 cardiac stents, operation on throat as child, laz cataracts Past Anesthesia/Blood Transfusion Reactions: No Reported Reaction Date of Last Stent Placement:: 2004 Past Psychological History: Depression Smoking Status: Former smoker Past Alcohol Use History: Rare Past Drug Use History: None Reported - Past Family History Brother(s) Family Medical History: Cancer Mother Additional Family Medical History / Comment(s): hemorrhage General Exam Limitations: no limitations General appearance: alert, in no apparent distress Head exam: Present: atraumatic, normocephalic, normal inspection Eye exam: Present: normal appearance, PERRL, EOMI. Absent: scleral icterus, conjunctival injection, periorbital swelling ENT exam: Present: normal exam, mucous membranes moist Neck exam: Present: normal inspection. Absent: tenderness, meningismus, lymphadenopathy Respiratory exam: Present: normal lung sounds bilaterally. Absent: respiratory distress, wheezes, rales, rhonchi, stridor Cardiovascular Exam: Present: regular rate, normal rhythm, normal heart sounds. Absent: systolic murmur, diastolic murmur, rubs, gallop, clicks GI/Abdominal exam: Present: soft, normal bowel sounds. Absent: distended, tenderness, guarding, rebound, rigid Extremities exam: Present: normal inspection, full ROM, normal capillary refill. Absent: tenderness, pedal edema, joint swelling, calf tenderness Back exam: Present: normal inspection Neurological exam: Present: alert, oriented X3, CN II-XII intact Psychiatric exam: Present: normal affect, normal mood Skin exam: Present: warm, dry, intact, normal color. Absent: rash Course Vital Signs 08/16/17 08/16/17 08/16/17 19:26 19:35 19:42 Temperature 97 F L Pulse Rate 86 Respiratory 18 20 Rate Blood Pressure 114/62 O2 Sat by Pulse 92 L 91 L Oximetry 08/16/17 08/16/17 08/16/17 20:04 20:12 20:30 Temperature Pulse Rate 91 96 91 Respiratory 18 Rate Blood Pressure 131/79 O2 Sat by Pulse 95 Oximetry - Reevaluation(s) Reevaluation #1: Patient with mild clinical was sent to control her breathing treatments, prolonged Medical Decision Making - Medical Decision Making 87 male to the ER for cough congestion fever and pneumonia. Shortness of breath hypoxia. Patient will be admitted for monitoring of cardiac s urinalysis status. - Lab Data Result diagrams: 08/18/17 05:34 08/18/17 05:34 - Radiology Data Radiology results: report reviewed (Chest x-rays positive for pneumonia), image reviewed Disposition Clinical Impression: Community acquired pneumonia, Elevated troponin, Anemia Disposition: ADMITTED IP TO THIS HOSP Condition: Good
[2017-08-16] MEDS: SODIUM CHLORIDE 0.9% 1,000 ML IV SCH (20:05)
[2017-08-16] MEDS: IPRATROPIUM-ALBUTEROL 3 ML NEB INHALATION SCH (21:26)
[2017-08-16 22:25] LABS: Creatine Kinase MB 1.6 ng/mL (0.0-2.4)
[2017-08-16 22:42] LABS: Troponin I 0.382 ng/mL (0.000-0.034)
[2017-08-17 00:27] LABS: Glucose,Whole Blood 123 mg/dL (75-99)
[2017-08-17 00:49] LABS: Basophils # (A) 0.1 k/uL (0-0.2); Basophils % (A) 1 %; CH 33.6; CHCM 31.5; Eosinophils # (A) 0.1 k/uL (0-0.7); Eosinophils % (A) 1 %; HCT 28.2 % (39.0-53.0); HDW 3.19; HGB 8.5 gm/dL (13.0-17.5); Hypochromasia Moderate; Luc # (Auto) 0.11; Luc % (Auto) 1; Lymphocytes # (A) 1.1 k/uL (1.0-4.8); Lymphocytes % (A) 10 %; MCH 32.3 pg (25.0-35.0); MCHC 30.1 g/dL (31.0-37.0); MCV 107.4 fL (80.0-100.0); Macrocytosis Marked; Mean Platelet Volume 7.1; Monocytes # (A) 0.5 k/uL (0-1.0); Monocytes % (A) 5 %; Neutrophils # (A) 9.3 k/uL (1.3-7.7); Neutrophils % (A) 83 %; RBC 2.63 m/uL (4.30-5.90); RDW 15.9 % (11.5-15.5); WBC 11.1 k/uL (3.8-10.6); WBC (Perox) 12.39
[2017-08-17 01:01] LABS: Anion Gap 11 mmol/L; Blood Urea Nitrogen 12 mg/dL (9-20); Calcium 8.6 mg/dL (8.4-10.2); Carbon Dioxide 23 mmol/L (22-30); Chloride 103 mmol/L (98-107); Glucose 118 mg/dL (74-99); Non-African American GFR(MDRD) >60 (>60 ml/min/1.73 sqM); Potassium 3.7 mmol/L (3.5-5.1); Sodium 137 mmol/L (137-145)
--- NOTE | 2017-08-17 01:02 | XR ---
EXAMINATION TYPE: XR chest 1V portable DATE OF EXAM: 08/17/2017 COMPARISON: NONE HISTORY: Hypoxemia TECHNIQUE: Single frontal view of the chest is obtained. FINDINGS: There is patchy pulmonary edema. There is some calcified pleural plaque in the left hemith orax. There are chest leads. Heart appears enlarged. There is some calcified pleural plaque also on t he right hemithorax. IMPRESSION: There is increasing pulmonary edema compared to last exam that could relate to RDS or wo rsening heart failure. There are probably increasing pleural effusions.
[2017-08-17] MEDS: SODIUM CHLORIDE 0.9% 1,000 ML IV SCH ×3 (01:34→23:20)
[2017-08-17] MEDS ORDERED: FUROSEMIDE 10 MG/ML 2 ML VIAL IV ONE (02:38)
[2017-08-17 03:56] LABS: Cholesterol 100 mg/dL (<200); HDL Cholesterol 28 mg/dL (40-60)
[2017-08-17 04:42] LABS: Creatine Kinase MB 3.9 ng/mL (0.0-2.4)
[2017-08-17 04:43] LABS: Troponin I 0.716 ng/mL (0.000-0.034)
[2017-08-17] MEDS: IPRATROPIUM-ALBUTEROL 3 ML NEB INHALATION SCH ×4 (07:12→20:33)
[2017-08-17] MEDS ORDERED: ASPIRIN 325 MG TAB PO SCH ×2 (09:00→21:00)
[2017-08-17] MEDS: LEVOFLOXACIN 750MG-D5W PMX 750 MG in DEXTROSE/WATER 1 150ML.BAG IVPB SCH (09:14)
--- NOTE | 2017-08-17 09:57 | XR ---
EXAMINATION TYPE: XR chest 1V portable DATE OF EXAM: 08/17/2017 Comparison: Earlier today Clinical History: 87-year-old male physician ordered, patient short of breath Findings: Heart remains borderline to mildly enlarged. Diffuse interstitial opacities with patchy multifocal ar eas of airspace opacity especially in the right upper to midlung. Calcified pleural plaques are demon strated. 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 Correla te for possible etiologies including pulmonary edema, multifocal pneumonia, acute exacerbation of und erlying interstitial lung disease, or interstitial pneumonitis.
--- NOTE | 2017-08-17 09:59 | P.PN ---
Progress Note - Text This is an addendum to the dictated cardiology consultation. The patient has a known history of CAD, post stenting of his RCA in 2004, his MPI in January 2016 showed no evidence of ischemia and his systolic function was normal by echocardiography. He was transferred to the hospital from [facility] with symptoms of progressive dyspnea. Patient has no symptoms of chest discomfort. He states CT angiogram that was done prior to transfer has shown no evidence of pulmonary embolism with evidence of right lung mass and bilateral infiltrate. The patient denies any chest pain he feels less dyspneic today, he has no dizziness or palpitations and continues to be in sinus mechanism. He recently underwent total knee arthroplasty and at that time an echocardiogram showed a preserved systolic function. He denies any significant cough or fever recently. His lab data showed an elevated NT proBNP, minimal elevation of his troponin, and abnormal chest x-ray with bilateral infiltrates and right middle lobe mass. His EKG shows no acute ST segment changes. Patient's symptoms of progressive dyspnea could be related to bilateral pneumonia with an element of fluid overload with heart failure and preserved systolic function. The mild elevation of the troponin most likely reflects a type II event related to his dyspnea and hypoxemia. I will start him on intravenous diuretics, repeat the chest x-ray in the morning , we will obtain the input of the industrial psychologist for further evaluation of his lung mass and his lung status. Thank you for this consult we will follow with you.
--- NOTE | 2017-08-17 10:15 | P.CRDCN ---
History of Present Illness Consult date: 08/17/17 Requesting physician: Espinoza Mayberry Reason for Consult (text): elevated troponin Chief complaint: shortness of breath, dizziness History of present illness: This is a pleasant 87-year-old gentleman with history of CAD, hyperlipidemia, osteoarthritis, recent right knee replacement, previous PCI. Presented to [facility] from an extended care facility where he was out for rehab with shortness of breath, dizziness and an O2 saturation of 84% on 4 L. He underwent a [address] of the chest there that showed no evidence of PE, right pleural effusion with pulmonary edema, 4 cm right lower lobe mass and questionable bilateral lobe pneumonia. Chest x-ray done here shows increasing pulmonary edema consistent with RDS versus worsening heart failure as well as increasing pleural effusion. And have a elevated BNP at 1760 and troponins were also mildly elevated at 0.0577 at [facility] and 0.382 and 0.716 here. Old records patient underwent 2-D echo with Doppler in July that showed an ejection fraction of 55-60% with mild MR, mild TR and mild pulmonary hypertension. Patient does have a history of pulmonary disease and follows with Dr. Kapadia. Upon examination, patient is sitting up in bed with a nonrebreather on. He says he is feeling a bit better, less short of breath and dizziness has improved. He has had no complaints of chest discomfort, nausea or vomiting, diaphoresis or syncope. Past Medical History Past Medical History: Coronary Artery Disease (CAD), Hyperlipidemia, Osteoarthritis (OA) Additional Past Medical History / Comment(s): glaucoma depression History of Any Multi-Drug Resistant Organisms: None Reported Past Surgical History: Heart Catheterization With Stent, Joint Replacement Additional Past Surgical History / Comment(s): rt hip replacement, left knee replacement, right knee replacement, 2 cardiac stents, operation on throat as child, laz cataracts Past Anesthesia/Blood Transfusion Reactions: No Reported Reaction Date of Last Stent Placement:: 2004 Past Psychological History: Depression Smoking Status: Former smoker Past Alcohol Use History: Rare Additional Past Alcohol Use History / Comment(s): quit smoking 50 yrs ago-1966, smoked for 17 yrs, 1PPD Past Drug Use History: None Reported - Past Family History Brother(s) Family Medical History: Cancer Mother Additional Family Medical History / Comment(s): hemorrhage Medications and Allergies Home Medications Medication Instructions Recorded Confirmed Type Atorvastatin [Lipitor] 80 mg PO HS 04/30/15 08/16/17 History Cholecalciferol [Vitamin D3] 2,000 unit PO BID 04/30/15 08/16/17 History Polyethylene Glycol 3350 [Miralax] 17 gm PO DAILY 04/30/15 08/16/17 History Vits A,C,E/Lutein/Minerals 1 tab PO DAILY 04/30/15 08/16/17 History [Ocuvite with Lutein Tablet] Cyanocobalamin (Vitamin B-12) 2,500 mcg PO SUTH 07/23/17 08/16/17 History [Vitamin B12] Sertraline [Zoloft] 50 mg PO HS 07/23/17 08/16/17 History Timolol 0.5% Ophth Soln [Timoptic 1 drop BOTH EYES DAILY 07/23/17 08/16/17 History 0.5% Ophth Soln] traMADol HCl [Ultram] 50 mg PO Q6H PRN 07/23/17 08/16/17 History Sennosides-Docusate Sodium 1 tab PO BID #60 tablet 08/03/17 08/16/17 Rx [Senokot-S] Tamsulosin [Flomax] 0.4 mg PO PC-SUPPER cap 08/03/17 08/16/17 Rx Acetaminophen Tab [Tylenol] 650 mg PO Q6HR PRN tab 08/06/17 08/16/17 Rx Fludrocortisone [Florinef] 0.2 mg PO DAILY #30 tab 08/06/17 08/16/17 Rx Midodrine [ProAmatine] 10 mg PO AC-TID #90 tab 08/06/17 08/16/17 Rx Aspirin 81 mg PO BID 08/16/17 08/16/17 History Allergies Allergy/AdvReac Type Severity Reaction Status Date / Time hydrocodone bitartrate AdvReac Hallucinati Verified 08/16/17 20:58 [From [place]] ons Physical Exam Vitals: Vital Signs Temp Pulse Pulse Resp BP BP Pulse Ox 08/17/17 08:00 98.1 F 96 18 109/51 97 08/17/17 07:23 94 L 08/17/17 07:12 90 08/17/17 04:00 97.7 F 92 18 106/54 93 L 08/17/17 00:00 98.3 F 107 H 16 108/55 91 L 08/16/17 20:30 91 08/16/17 20:12 96 18 131/79 95 08/16/17 20:04 91 08/16/17 19:42 20 08/16/17 19:35 91 L 08/16/17 19:26 97 F L 86 18 114/62 92 L Intake and Output 08/16/17 08/17/17 08/17/17 22:59 06:59 14:59 Intake Total 200 Output Total 2000 Balance 200 -2000 Intake: IV 200 Sodium Chloride 0.9% 1, 200 000 ml @ 100 mls/hr IV . Q10H [facility] Rx#:[id number] Output: Urine 1999 Other: Voiding Method Urinal # Voids 1 # Bowel Movements 1 Weight 76.657 kg 77 kg PHYSICAL EXAMINATION: HEENT: Head is atraumatic, normocephalic. Pupils equal, round. Neck is supple. There is no elevated jugular venous pressure. HEART EXAMINATION: Heart sounds regular, S1 and S2 normal. No murmur or gallop heard. CHEST EXAMINATION: Lungs reveal crackles from mid lung down. No chest wall tenderness is noted on palpation or with deep breathing. ABDOMEN: Soft, nontender. Bowel sounds are heard. No organomegaly noted. EXTREMITIES: 2+ peripheral pulses with evidence of 1+ right lower extremity edema and no calf tenderness noted. Midline, right anterior knee incision noted. NEUROLOGIC patient is awake, alert and oriented x3. . Results 08/17/17 00:33 08/17/17 00:33 Cardiac Enzymes 08/16/17 08/17/17 Range/Units 21:20 03:18 CK-MB (CK-2) 1.6 3.9 H* (0.0-2.4) ng/mL Troponin I 0.382 H* 0.716 H* (0.000-0.034) ng/mL Lipids 08/17/17 Range/Units 03:18 Triglycerides 64 (<150) mg/dL Cholesterol 100 (<200) mg/dL HDL Cholesterol 28 L (40-60) mg/dL CBC 08/17/17 Range/Units 00:33 WBC 11.1 H (3.8-10.6) k/uL RBC 2.63 L (4.30-5.90) m/uL Hgb 8.5 L (13.0-17.5) gm/dL Hct 28.2 L (39.0-53.0) % Plt Count 422 (150-450) k/uL Comprehensive Metabolic Panel 08/17/17 Range/Units 00:33 Sodium 137 (137-145) mmol/L Potassium 3.7 (3.5-5.1) mmol/L Chloride 103 (98-107) mmol/L Carbon Dioxide 23 (22-30) mmol/L BUN 12 (9-20) mg/dL Creatinine 0.60 L (0.66-1.25) mg/dL Glucose 118 H (74-99) mg/dL Calcium 8.6 (8.4-10.2) mg/dL Current Medications Generic Name Dose Route Start Last Admin Trade Name Freq PRN Reason Stop Dose Admin Albuterol/Ipratropium 3 ml 08/16/17 20:00 08/17/17 07:12 Duoneb 0.5 Mg-3 Mg/3 Ml Soln INHALATION 3 ml RT-QID [facility] Administration Albuterol/Ipratropium 3 ml 08/17/17 00:25 Duoneb 0.5 Mg-3 Mg/3 Ml Soln INHALATION RT-Q2H PRN Shortness Of Breath Or Wheezing Aspirin 81 mg 08/17/17 09:34 Aspirin PO DAILY [facility] Atorvastatin Calcium 80 mg 08/17/17 21:00 Lipitor PO HS [facility] Furosemide 40 mg 08/17/17 10:00 Lasix IV Q8HR [facility] Levofloxacin 750 mg/ IV 150 mls @ 100 mls/hr 08/17/17 09:00 08/17/17 09:14 Solution IVPB 08/29/17 09:01 100 mls/hr Q24H [facility] Administration Sodium Chloride 1,000 mls @ 100 mls/hr 08/16/17 19:45 08/17/17 01:34 Saline 0.9% IV Not Given .Q10H [facility] Miscellaneous Information 1 each 08/16/17 19:35 Pneumonia Protocol Utilized PO ONCE PRN Per Protocol Morphine Sulfate 4 mg 08/16/17 19:35 Morphine Sulfate (Inj) IV Q5M PRN Chest Pain Intake and Output 08/16/17 08/17/17 08/17/17 22:59 06:59 14:59 Intake Total 200 Output Total 2000 Balance 200 -2000 Intake: IV 200 Sodium Chloride 0.9% 1, 200 000 ml @ 100 mls/hr IV . Q10H [facility] Rx#:[id number] Output: Urine 2000 Other: Voiding Method Urinal # Voids 1 # Bowel Movements 1 Weight 76.657 kg 77 kg 08/17/17 00:33 08/17/17 00:33 Assessment and Plan Plan: Assessment and plan #1 symptoms of shortness of breath likely secondary to bilateral pneumonia and an aspect of fluid overload #2 elevated troponin likely secondary to type 2 event due to hypoxia with oxygen supply and demand mismatch #3 history of CAD #4 hyperlipidemia #5 orthostatic hypotension during last admission Cardiology's perspective, we will add IV Lasix. We will consult with pulmonary. Will repeat chest x-ray in the morning. We'll continue to follow the patient and write further recommendations accordingly. [place] [employer] ATTENDANT note has been reviewed, I agree with a documented findings and plan of care. Patient was seen and examined.
[2017-08-17] MEDS: FUROSEMIDE 10 MG/ML 4 ML VIAL IV SCH ×3 (11:10→23:19)
--- NOTE | 2017-08-17 11:15 | P.HPIM ---
History of Present Illness H&P Date: 08/17/17 Chief Complaint: Shortness of breath This is a 87-year-old gentleman with very complex past medical history noted below who was transferred from an outside hospital after he presented with worsening shortness of breath. Patient was recently discharged from the hospital and said that he is having progressive shortness of breath. CT angiogram done at the outside hospital showed evidence of suspected right lung mass and bilateral infiltrate. The study was negative for PE. Patient himself denies any chest pain. He was up in bed when I saw him. He denies any specific concerns or complaints. He is currently on 2 L of oxygen. Review of Systems Review of system: 14 points review of systems were obtained and were negative except to what were mentioned in the HPI. Past Medical History Past Medical History: Coronary Artery Disease (CAD), Hyperlipidemia, Osteoarthritis (OA) Additional Past Medical History / Comment(s): glaucoma depression History of Any Multi-Drug Resistant Organisms: None Reported Past Surgical History: Heart Catheterization With Stent, Joint Replacement Additional Past Surgical History / Comment(s): rt hip replacement, left knee replacement, right knee replacement, 2 cardiac stents, operation on throat as child, laz cataracts Past Anesthesia/Blood Transfusion Reactions: No Reported Reaction Date of Last Stent Placement:: 2004 Past Psychological History: Depression Smoking Status: Former smoker Past Alcohol Use History: Rare Additional Past Alcohol Use History / Comment(s): quit smoking 50 yrs ago-1966, smoked for 17 yrs, 1PPD Past Drug Use History: None Reported - Past Family History Brother(s) Family Medical History: Cancer Mother Additional Family Medical History / Comment(s): hemorrhage Medications and Allergies Home Medications Medication Instructions Recorded Confirmed Type Atorvastatin [Lipitor] 80 mg PO HS 04/30/15 08/16/17 History Cholecalciferol [Vitamin D3] 2,000 unit PO BID 04/30/15 08/16/17 History Polyethylene Glycol 3350 [Miralax] 17 gm PO DAILY 04/30/15 08/16/17 History Vits A,C,E/Lutein/Minerals 1 tab PO DAILY 04/30/15 08/16/17 History [Ocuvite with Lutein Tablet] Cyanocobalamin (Vitamin B-12) 2,500 mcg PO SUTH 07/23/17 08/16/17 History [Vitamin B12] Sertraline [Zoloft] 50 mg PO HS 07/23/17 08/16/17 History Timolol 0.5% Ophth Soln [Timoptic 1 drop BOTH EYES DAILY 07/23/17 08/16/17 History 0.5% Ophth Soln] traMADol HCl [Ultram] 50 mg PO Q6H PRN 07/23/17 08/16/17 History Sennosides-Docusate Sodium 1 tab PO BID #60 tablet 08/03/17 08/16/17 Rx [Senokot-S] Tamsulosin [Flomax] 0.4 mg PO PC-SUPPER cap 08/03/17 08/16/17 Rx Acetaminophen Tab [Tylenol] 650 mg PO Q6HR PRN tab 08/06/17 08/16/17 Rx Fludrocortisone [Florinef] 0.2 mg PO DAILY #30 tab 08/06/17 08/16/17 Rx Midodrine [ProAmatine] 10 mg PO AC-TID #90 tab 08/06/17 08/16/17 Rx Aspirin 81 mg PO BID 08/16/17 08/16/17 History Allergies Allergy/AdvReac Type Severity Reaction Status Date / Time hydrocodone bitartrate AdvReac Hallucinati Verified 08/16/17 20:58 [From [place]] ons Physical Exam Vitals: Vital Signs Temp Pulse Pulse Resp BP BP Pulse Ox 08/17/17 08:00 98.1 F 96 18 109/51 97 08/17/17 07:23 94 L 08/17/17 07:12 90 08/17/17 04:00 97.7 F 92 18 106/54 93 L 08/17/17 00:00 98.3 F 107 H 16 108/55 91 L 08/16/17 20:30 91 08/16/17 20:12 96 18 131/79 95 08/16/17 20:04 91 08/16/17 19:42 20 08/16/17 19:35 91 L 08/16/17 19:26 97 F L 86 18 114/62 92 L Intake and Output 08/16/17 08/17/17 08/17/17 22:59 06:59 14:59 Intake Total 200 Output Total 2000 Balance 200 -2000 Intake: IV 200 Sodium Chloride 0.9% 1, 200 000 ml @ 100 mls/hr IV . Q10H [facility] Rx#:[id number] Output: Urine 2000 Other: Voiding Method Urinal # Voids 1 # Bowel Movements 1 Weight 76.657 kg 77 kg General: The patient is awake and alert, in no distress Eye: there is normal conjunctiva bilaterally. Neck: The neck is supple, there is no JVD. Cardiovascular: Normal S1-S2, no S3-S4, no murmurs. Respiratory: Lungs clear to auscultation bilaterally Gastrointestinal: Abdomen is soft, nontender Musculoskeletal: There is no pedal edema. Neurological:. Speech is normal. Skin: Skin is warm and dry Results CBC & Chem 7: 08/17/17 00:33 08/17/17 00:33 Labs: Abnormal Lab Results - Last 24 Hours (Table) 08/16/17 08/17/17 08/17/17 Range/Units 21:20 00:24 00:33 WBC 11.1 H (3.8-10.6) k/uL RBC 2.63 L (4.30-5.90) m/uL Hgb 8.5 L (13.0-17.5) gm/dL Hct 28.2 L (39.0-53.0) % MCV 107.4 H (80.0-100.0) fL MCHC 30.1 L (31.0-37.0) g/dL RDW 15.9 H (11.5-15.5) % Neutrophils # 9.3 H (1.3-7.7) k/uL Creatinine (0.66-1.25) mg/dL Glucose (74-99) mg/dL POC Glucose (mg/dL) 123 H (75-99) mg/dL Total Creatine Kinase 36 L (55-170) U/L CK-MB (CK-2) (0.0-2.4) ng/mL Troponin I 0.382 H* (0.000-0.034) ng/mL HDL Cholesterol (40-60) mg/dL 08/17/17 08/17/17 08/17/17 Range/Units 00:33 03:18 03:18 WBC (3.8-10.6) k/uL RBC (4.30-5.90) m/uL Hgb (13.0-17.5) gm/dL Hct (39.0-53.0) % MCV (80.0-100.0) fL MCHC (31.0-37.0) g/dL RDW (11.5-15.5) % Neutrophils # (1.3-7.7) k/uL Creatinine 0.60 L (0.66-1.25) mg/dL Glucose 118 H (74-99) mg/dL POC Glucose (mg/dL) (75-99) mg/dL Total Creatine Kinase 45 L (55-170) U/L CK-MB (CK-2) 3.9 H* (0.0-2.4) ng/mL Troponin I 0.716 H* (0.000-0.034) ng/mL HDL Cholesterol 28 L (40-60) mg/dL 08/17/17 Range/Units 09:41 WBC (3.8-10.6) k/uL RBC (4.30-5.90) m/uL Hgb (13.0-17.5) gm/dL Hct (39.0-53.0) % MCV (80.0-100.0) fL MCHC (31.0-37.0) g/dL RDW (11.5-15.5) % Neutrophils # (1.3-7.7) k/uL Creatinine (0.66-1.25) mg/dL Glucose (74-99) mg/dL POC Glucose (mg/dL) (75-99) mg/dL Total Creatine Kinase (55-170) U/L CK-MB (CK-2) (0.0-2.4) ng/mL Troponin I 1.890 H* (0.000-0.034) ng/mL HDL Cholesterol (40-60) mg/dL Thrombosis Risk Factor Assmnt - Choose All That Apply Any of the Below Risk Factors Present?: Yes Each Factor Represents 1 point: History of prior major surgery (<1month), Obesity (BMI >25), Serious lung disease incl. pneumonia (< 1month) Other Risk Factors: Yes Each Risk Factor Represents 3 Points: Age 75 years or older Other congenital or acquired thrombophilia - If yes, enter type in comment: No Thrombosis Risk Factor Assessment Total Risk Factor Score: 6 Thrombosis Risk Factor Assessment Level: High Risk Assessment and Plan Plan: 1. Progressive dyspnea with suspected right lung mass: Awaiting pulmonology evaluation 2. Coronary artery disease with prior stent placement 3. Chronic orthostatic hypotension 4. Diastolic heart failure with suspected exacerbation currently on IV Lasix. We will repeat chest x-ray within the next day or 2 Today, I reviewed his medication list and lab work results. Continue current regimen. We will continue to follow up on him closely.
[2017-08-17] MEDS: MIDODRINE 5 MG TAB PO SCH ×2 (12:41→17:30)
--- NOTE | 2017-08-17 15:08 | P.CNPUL ---
History of Present Illness Consult date: 08/17/17 Reason for consult: dyspnea History of present illness: This is an 87-year-old male patient was referred to us from [facility] because of worsening shortness of breath. The patient was on ECF where he was undergoing rehabilitation for shortness of breath and dizziness. He has history of asbestosis with extensive bilateral pleural calcification as evident on previous chest x-rays. Based on his worsening shortness of breath, a CAT scan of the chest was done and it showed bilateral pleural effusion, interstitial edema, a questionable 4 cm right lower lobe mass and extensive bilateral pleural calcification typical of an underlying asbestosis. No significant cough or sputum production. No fever chills or night sweats. The patient was transferred here and I reviewed the CAT scan of the chest. Troponins were minimally elevated and troponin maxed is at 0.3 and 0.7. Echocardiogram from July of this year showed an ejection fraction of 55-60 % with mild TR, mild MR and mild pulmonary hypertension. He has history of coronary artery disease, hyperlipidemia and osteoarthritis along with glaucoma and depression. He has had previous cardiac stents placed. He is known to have coronary artery disease .Note that the patient was in the hospital on 07/28 for a total right knee arthroplasty. The procedure was performed without any complications. Postop the patient had a fall and he had orthostatic hypotension and urinary retention. He had an echocardiogram that showed no significant abnormalities. Doppler of the lower extremity was also negative. He was started on Florinef. He was ultimately sent to [facility] for rehabilitation. Review of Systems Constitutional: Reports fatigue, Reports poor appetite, Reports weakness Eyes: denies as per HPI, denies blurred vision, denies bulging eye Ears: deny: decreased hearing, ear discharge, earache Ears, nose, mouth and throat: Denies headache, Denies sore throat Cardiovascular: Reports decreased exercise tolerance, Reports dyspnea on exertion, Reports shortness of breath Respiratory: Reports dyspnea Gastrointestinal: Denies abdominal pain, Denies diarrhea, Denies nausea, Denies vomiting Genitourinary: Reports as per HPI Musculoskeletal: Denies myalgias Musculoskeletal: absent: ankle pain, ankle stiffness, ankle swelling Integumentary: Denies pruritus, Denies rash Neurological: Denies numbness, Denies weakness Psychiatric: Denies anxiety, Denies depression Endocrine: Denies fatigue, Denies weight change Past Medical History Past Medical History: Coronary Artery Disease (CAD), Hyperlipidemia, Osteoarthritis (OA) Additional Past Medical History / Comment(s): coronary artery disease with previous coronary intervention coronary stenting, hyperlipidemia, asbestosis, obstructive sleep apnea, BPH, osteoarthritis History of Any Multi-Drug Resistant Organisms: None Reported Past Surgical History: Heart Catheterization With Stent, Joint Replacement Additional Past Surgical History / Comment(s): rt hip replacement (07/28/2017), left knee replacement, right knee replacement, 2 cardiac stents, operation on throat as child, laz cataracts Past Anesthesia/Blood Transfusion Reactions: No Reported Reaction Date of Last Stent Placement:: 2004 Past Psychological History: Depression Smoking Status: Former smoker Past Alcohol Use History: Rare Additional Past Alcohol Use History / Comment(s): quit smoking 50 yrs ago-1966, smoked for 17 yrs, 1PPD Past Drug Use History: None Reported - Past Family History Brother(s) Family Medical History: Cancer Mother Additional Family Medical History / Comment(s): hemorrhage Medications and Allergies Home Medications Medication Instructions Recorded Confirmed Type Atorvastatin [Lipitor] 80 mg PO HS 04/30/15 08/16/17 History Cholecalciferol [Vitamin D3] 2,000 unit PO BID 04/30/15 08/16/17 History Polyethylene Glycol 3350 [Miralax] 17 gm PO DAILY 04/30/15 08/16/17 History Vits A,C,E/Lutein/Minerals 1 tab PO DAILY 04/30/15 08/16/17 History [Ocuvite with Lutein Tablet] Cyanocobalamin (Vitamin B-12) 2,500 mcg PO SUTH 07/23/17 08/16/17 History [Vitamin B12] Sertraline [Zoloft] 50 mg PO HS 07/23/17 08/16/17 History Timolol 0.5% Ophth Soln [Timoptic 1 drop BOTH EYES DAILY 07/23/17 08/16/17 History 0.5% Ophth Soln] traMADol HCl [Ultram] 50 mg PO Q6H PRN 07/23/17 08/16/17 History Sennosides-Docusate Sodium 1 tab PO BID #60 tablet 08/03/17 08/16/17 Rx [Senokot-S] Tamsulosin [Flomax] 0.4 mg PO PC-SUPPER cap 08/03/17 08/16/17 Rx Acetaminophen Tab [Tylenol] 650 mg PO Q6HR PRN tab 08/06/17 08/16/17 Rx Fludrocortisone [Florinef] 0.2 mg PO DAILY #30 tab 08/06/17 08/16/17 Rx Midodrine [ProAmatine] 10 mg PO AC-TID #90 tab 08/06/17 08/16/17 Rx Aspirin 81 mg PO BID 08/16/17 08/16/17 History Allergies Allergy/AdvReac Type Severity Reaction Status Date / Time hydrocodone bitartrate AdvReac Hallucinati Verified 08/16/17 20:58 [From [facility]] ons Physical Exam Vitals: Vital Signs Temp Pulse Pulse Resp BP BP Pulse Ox 08/17/17 12:00 97.6 F 92 18 104/58 92 L 08/17/17 11:32 96 08/17/17 11:21 94 93 L 08/17/17 08:00 98.1 F 96 18 109/51 97 08/17/17 07:23 92 94 L 08/17/17 07:12 90 08/17/17 04:00 97.7 F 92 18 106/54 93 L 08/17/17 00:00 98.3 F 107 H 16 108/55 91 L 08/16/17 20:30 91 08/16/17 20:12 96 18 131/79 95 08/16/17 20:04 91 08/16/17 19:42 20 08/16/17 19:35 91 L 08/16/17 19:26 97 F L 86 18 114/62 92 L Intake and Output 08/16/17 08/17/17 08/17/17 22:59 06:59 14:59 Intake Total 200 Output Total 1999 300 Balance 200 -2000 -300 Intake: IV 200 Sodium Chloride 0.9% 1, 200 000 ml @ 100 mls/hr IV . Q10H [facility] Rx#:[id number] Output: Urine 1999 300 Other: Voiding Method Urinal # Voids 1 # Bowel Movements 1 Weight 76.657 kg 77 kg 77 kg Patient Weight 08/18/17 06:59 Weight 77 kg Elderly, nonacute distress, currently on high flow oxygen, not using accessory muscles of breathing.Head exam was generally normal. There was no scleral icterus or corneal arcus. Mucous membranes were moist.Neck was supple and without jugular venous distension, thyromegaly, or carotid bruits. Carotids were easily palpable bilaterally. There was no adenopathy. Poor dentition. Lung sounds are diminished in lung bases along with coarse crackles heard throughout the lung walters bilaterally especially in the lung bases.Cardiac exam revealed the PMI to be normally situated and sized. The rhythm was regular and no extrasystoles were noted during several minutes of auscultation. The first and second heart sounds were normal and physiologic splitting of the second heart sound was noted. There were no murmurs, rubs, clicks, or gallops.Abdominal exam revealed normal bowel sounds. The abdomen was soft, non- tender, and without masses, organomegaly, or appreciable enlargement of the abdominal aorta. Extremities show a healed wound over the right knee and there is no edema or swelling.Examination of the skin revealed no evidence of significant rashes, suspicious appearing nevi or other concerning lesions. Neurologically is awake and alert and following commands and moving all 4 extremities without any limitation skeletal shows no active arthritis or joint deformities. Results - Laboratory Findings CBC and BMP: 08/17/17 00:33 08/17/17 00:33 Abnormal lab findings: Abnormal Labs 08/16/17 08/17/17 08/17/17 21:20 00:24 00:33 WBC 11.1 H RBC 2.63 L Hgb 8.5 L Hct 28.2 L MCV 107.4 H MCHC 30.1 L RDW 15.9 H Neutrophils # 9.3 H Creatinine Glucose POC Glucose (mg/dL) 123 H Total Creatine Kinase 36 L CK-MB (CK-2) Troponin I 0.382 H* HDL Cholesterol 08/17/17 08/17/17 08/17/17 00:33 03:18 03:18 WBC RBC Hgb Hct MCV MCHC RDW Neutrophils # Creatinine 0.60 L Glucose 118 H POC Glucose (mg/dL) Total Creatine Kinase 45 L CK-MB (CK-2) 3.9 H* Troponin I 0.716 H* HDL Cholesterol 28 L 08/17/17 09:41 WBC RBC Hgb Hct MCV MCHC RDW Neutrophils # Creatinine Glucose POC Glucose (mg/dL) Total Creatine Kinase CK-MB (CK-2) Troponin I 1.890 H* HDL Cholesterol - Diagnostic Findings Chest x-ray: image reviewed CT scan - chest: image reviewed Assessment and Plan Plan: Assessment 1 acute hypoxic respiratory failure with diffuse bilateral pulmonary infiltrates and a dense consolidation of the right lower lobe giving a pseudotumor appearance. The findings are highly suspicious for pneumonia. Underlying CHF and fluid overload cannot be completely excluded. Note that the findings are a bit somewhat hard to characterize knowing that the patient is extensive asbestosis in the background. 2 asbestosis, by history with extensive pleural calcifications and fibrosis 3 coronary artery disease with minimal troponin leak 4 preserved LV function with normal ejection fraction 5 seconds sleep apnea maintained on CPAP therapy on outpatient basis 7 hyperlipidemia 8 osteoarthritis 9 recent right knee arthroplasty 10 BPH PLAN Broadened antibiotic coverage and add Zosyn in conjunction with Levaquin for any hospital-acquired or ECF acquired pneumonia. Continue with diuretics. Repeat chest x-ray in the morning. Wean FiO2 tolerated to maintain a saturation above 90%. We'll continue to follow. Case was discussed with cardiology. Findings and acute knowing that his recent chest x-ray from June did not show all of these abnormalities. As such malignancy is less likely. Findings of either consistent with pneumonia versus fluid overload. coronary artery disease with previous coronary intervention coronary stenting, hyperlipidemia, asbestosis, obstructive sleep apnea, BPH, osteoarthritis
[2017-08-17] MEDS: ONDANSETRON 4 MG/2 ML VIAL IVP PRN (15:10)
[2017-08-17] MEDS: traMADol 50 MG TAB PO PRN (15:29)
[2017-08-17] MEDS: PIPERACILLIN-TAZOBACTAM 3.375 GM in DEXTROSE/WATER 1 50ML.BAG IVPB SCH ×2 (15:46→23:19)
[2017-08-17] MEDS: TAMSULOSIN 0.4 MG CAP.ER.24H PO SCH ×2 (17:30→18:22)
[2017-08-17] MEDS: SENNOSIDES-DOCUSATE SODIUM 1 EACH TAB PO SCH (20:14)
[2017-08-17] MEDS: SERTRALINE 50 MG TAB PO SCH (20:14)
[2017-08-17] MEDS: ATORVASTATIN 80 MG TAB PO SCH (20:14)
[2017-08-18] MEDS: ONDANSETRON 4 MG/2 ML VIAL IVP PRN (00:23)
--- NOTE | 2017-08-18 01:09 | XR ---
EXAMINATION TYPE: XR chest 1V portable DATE OF EXAM: 08/18/2017 COMPARISON: Yesterday HISTORY: Short of breath TECHNIQUE: Single frontal view of the chest is obtained. FINDINGS: There is extensive pulmonary edema. There is bilateral calcified pleural plaque. There are chest leads. IMPRESSION: Moderately severe pulmonary edema consistent with heart failure or RDS there is slightly worse than exam yesterday at 9:00 AM. Calcified pleural plaque.
[2017-08-18] MEDS: MIDODRINE 5 MG TAB PO SCH ×3 (06:25→18:16)
[2017-08-18 06:26] LABS: Anion Gap 9 mmol/L; Blood Urea Nitrogen 15 mg/dL (9-20); Calcium 8.5 mg/dL (8.4-10.2); Carbon Dioxide 31 mmol/L (22-30); Chloride 95 mmol/L (98-107); Glucose 153 mg/dL (74-99); Non-African American GFR(MDRD) >60 (>60 ml/min/1.73 sqM); Potassium 3.5 mmol/L (3.5-5.1); Sodium 135 mmol/L (137-145)
[2017-08-18] MEDS: PIPERACILLIN-TAZOBACTAM 3.375 GM in DEXTROSE/WATER 1 50ML.BAG IVPB SCH ×3 (07:35→23:39)
[2017-08-18 08:00] LABS: CH 32.5; CHCM 31.2; HCT 26.3 % (39.0-53.0); HDW 3.28; HGB 8.3 gm/dL (13.0-17.5); Hypochromasia Moderate; MCHC 31.6 g/dL (31.0-37.0); MCV 104.6 fL (80.0-100.0); Macrocytosis Moderate; Mean Platelet Volume 7.1; RBC 2.51 m/uL (4.30-5.90); RDW 15.3 % (11.5-15.5); WBC 14.9 k/uL (3.8-10.6)
--- NOTE | 2017-08-18 08:16 | XR ---
EXAMINATION TYPE: XR chest 1V portable DATE OF EXAM: 08/18/2017 CLINICAL HISTORY: Difficulty breathing progress study. TECHNIQUE: Single AP portable frontal view of the chest is obtained. COMPARISON: Chest x-ray from earlier today and older studies. CTA thorax 2 days ago. FINDINGS: There is redemonstration of calcified pleural plaques bilaterally. Cardiac silhouette size is stable and upper limits of normal with atherosclerotic thoracic aorta. There is persistent bilate ral multifocal opacities most prominent in the right upper lobe and diffusely in the left lung. Suspi cious mass or nodule superior aspect right lower lobe is less well seen on plain films versus CT. Oss eous structures are demineralized. No large pleural effusion or pneumothorax is present bilaterally. IMPRESSION: Overall stable findings, bilateral calcified pleural plaques consistent with prior asbe stos exposure. There is multifocal bilateral infiltrates and/or edema redemonstrated. Suspicious righ t lung mass noted on outside recent CT.
[2017-08-18] MEDS: IPRATROPIUM-ALBUTEROL 3 ML NEB INHALATION SCH ×4 (08:39→20:09)
[2017-08-18] MEDS: LEVOFLOXACIN 750MG-D5W PMX 750 MG in DEXTROSE/WATER 1 150ML.BAG IVPB SCH (09:27)
[2017-08-18] MEDS: FUROSEMIDE 10 MG/ML 4 ML VIAL IV SCH (09:27)
[2017-08-18] MEDS: SODIUM CHLORIDE 0.9% 1,000 ML IV SCH ×2 (10:19→19:51)
[2017-08-18] MEDS: FLUDROCORTISONE 0.1 MG TAB PO SCH (10:27)
[2017-08-18] MEDS: SENNOSIDES-DOCUSATE SODIUM 1 EACH TAB PO SCH ×2 (10:27→20:30)
[2017-08-18] MEDS: ASPIRIN 81 MG PO SCH (10:27)
[2017-08-18] MEDS: POLYETHYLENE GLYCOL 3350 17 GM POWD.PACK PO SCH (10:27)
--- NOTE | 2017-08-18 10:28 | P.PN ---
Subjective Patient overall condition deteriorated overnight. His oxygen requirement has increased and is currently on a nonrebreather. He had an episode of vomiting with suspected aspiration last night. Chest x-ray showed bilateral pulmonary edema. Patient has been getting Lasix 40 mg every 8 hours but his blood pressure this morning was borderline low. Objective - Vital Signs Vital signs: Vital Signs Temp 99.3 F 08/18/17 07:38 Pulse 111 H 08/18/17 09:27 Resp 20 08/18/17 09:27 BP 109/54 08/18/17 09:27 Pulse Ox 86 L 08/18/17 09:27 Intake & Output 08/17/17 08/18/17 08/18/17 18:59 06:59 18:59 Intake Total 250 0 Output Total 300 Balance -50 0 Weight 77 kg 75 kg Intake: Oral 250 0 Output: Urine 300 Other: Voiding Method Urinal Urinal Diaper Incontinent # Voids 2 0 - Exam General: The patient is awake and alert, in no distress Eye: there is normal conjunctiva bilaterally. Neck: The neck is supple, there is no JVD. Cardiovascular: Normal S1-S2, no S3-S4, no murmurs. Respiratory: Lungs with bibasilar crackles Gastrointestinal: Abdomen is soft, nontender Musculoskeletal: There is no pedal edema. Neurological:. Speech is normal. Skin: Skin is warm and dry - Labs CBC & Chem 7: 08/18/17 05:34 08/18/17 05:34 Labs: Abnormal Lab Results - Last 24 Hours (Table) 08/17/17 08/18/17 08/18/17 Range/Units 09:41 05:34 05:34 WBC 14.9 H (3.8-10.6) k/uL RBC 2.51 L (4.30-5.90) m/uL Hgb 8.3 L (13.0-17.5) gm/dL Hct 26.3 L (39.0-53.0) % MCV 104.6 H (80.0-100.0) fL Sodium 135 L (137-145) mmol/L Chloride 95 L (98-107) mmol/L Carbon Dioxide 31 H (22-30) mmol/L Glucose 153 H (74-99) mg/dL Troponin I 1.890 H* (0.000-0.034) ng/mL Microbiology - Last 24 Hours (Table) 08/16/17 21:20 Blood Culture - Preliminary Blood No Growth after 24 hours Assessment and Plan Plan: 1. Progressive dyspnea with suspected healthcare acquired pneumonia 2. Diastolic heart failure exacerbation with pulmonary edema 3. Coronary artery disease with prior stent placement 4. Chronic orthostatic hypotension 5. Obstructive sleep apnea Today, I reviewed his medication list and lab work results. I would change Lasix to 40 mg IV twice daily given borderline low blood pressure. Patient to be placed on BiPAP. Appreciate it security consultant's recommendations. Continue current regimen. Patient prognosis is guarded. No family members at bedside to be updated. I will continue to follow up on him closely.
[2017-08-18] MEDS: TIMOLOL 0.5% OPHTH DROPS 5 ML BTL BOTH EYES SCH (10:31)
[2017-08-18 10:51] LABS: Glucose,Whole Blood 187 mg/dL (75-99)
[2017-08-18] MEDS ORDERED: NALOXONE 0.4 MG/ML 1 ML VIAL IV PRN (11:10)
[2017-08-18 11:36] LABS: Appearance,Urine Clear (Clear); Bilirubin,Urine Negative (Negative); Glucose,Urine (UA) Negative (Negative); Ketones,Urine Negative (Negative); Leukocyte Esterase,Urine Negative (Negative); Nitrite,Urine Negative (Negative); Protein,Urine Negative (Negative); Specific Gravity,Urine 1.007 (1.001-1.035); UA Billing (MACRO vs. MICRO) CHEM; Urobilinogen,Urine <2.0 mg/dL (<2.0)
[2017-08-18 11:48] LABS: Glucose,Whole Blood 136 mg/dL (75-99)
[2017-08-18] MEDS: methylPREDNISolone SOD SUCCI 40 MG/ML 1 ML VIAL IV SCH ×2 (12:00→20:30)
[2017-08-18] MEDS: PANTOPRAZOLE 40 MG/10 ML VIAL IV SCH (12:00)
[2017-08-18] MEDS: INSULIN LISPRO (humaLOG) 300 UNIT/3 ML VIAL SQ SCH ×3 (12:01→23:39)
--- NOTE | 2017-08-18 12:13 | P.PN ---
Subjective Progress Note Date: 08/18/17 This is an 87-year-old male patient was referred to us from [facility] because of worsening shortness of breath. The patient was on ECF where he was undergoing rehabilitation for shortness of breath and dizziness. He has history of asbestosis with extensive bilateral pleural calcification as evident on previous chest x-rays. Based on his worsening shortness of breath, a CAT scan of the chest was done and it showed bilateral pleural effusion, interstitial edema, a questionable 4 cm right lower lobe mass and extensive bilateral pleural calcification typical of an underlying asbestosis. No significant cough or sputum production. No fever chills or night sweats. The patient was transferred here and I reviewed the CAT scan of the chest. Troponins were minimally elevated and troponin maxed is at 0.3 and 0.7. Echocardiogram from July of this year showed an ejection fraction of 55-60 % with mild TR, mild MR and mild pulmonary hypertension. He has history of coronary artery disease, hyperlipidemia and osteoarthritis along with glaucoma and depression. He has had previous cardiac stents placed. He is known to have coronary artery disease .Note that the patient was in the hospital on 07/28 for a total right knee arthroplasty. The procedure was performed without any complications. Postop the patient had a fall and he had orthostatic hypotension and urinary retention. He had an echocardiogram that showed no significant abnormalities. Doppler of the lower extremity was also negative. He was started on Florinef. He was ultimately sent to [facility] for rehabilitation. On 08/18/2017 I'm seeing this patient for a follow-up. I can't understand that overnight the patient's condition decompensated. He became progressively more hypoxic. Based on that he was placed on a BiPAP at a pressure of 12/5 cm of water and FiO2 of 80%. His current pulse ox is barely above 90%. He is short of breath. I reviewed the chest x-ray from today and there is a dense consolidation of the right upper lobe in addition to extensive background fibrosis and asbestosis with significant pleural calcification. The patient is still short of breath and he is having some limited shortness of breath even at rest. He has a congested cough. Unable to bring up much sputum. His blood culture been negative thus far. His white cell count is elevated at 14.4. Hemoglobin stable at 8.3. He is covered with broad-spectrum antibiotics and he is coming on a combination of Zosyn and Levaquin. Is being diuresis gently with Lasix 40 mg IV push every 12 hours. He is also on bronchodilators with DuoNeb the last treatment [id number]. He'll be transferred to the intensive care unit. He'll be started also on some systemic steroids. Objective - Vital Signs Vital signs: Vital Signs Temp 101 F H 08/18/17 11:00 Pulse 88 08/18/17 11:34 Resp 24 08/18/17 11:00 BP 97/66 08/18/17 11:00 Pulse Ox 97 08/18/17 11:00 Intake & Output 08/17/17 08/18/17 08/18/17 18:59 06:59 18:59 Intake Total 250 20 Output Total 300 110 Balance -50 -90 Weight 77 kg 75 kg Intake: IV 20 Sodium Chloride 0.9% 1, 20 000 ml @ 20 mls/hr IV . Q24H [facility] Rx#:[id number] Oral 250 0 Output: Urine 300 110 Other: Voiding Method Urinal Urinal Diaper Incontinent # Voids 2 0 - Exam Elderly, nonacute distress, currently on high flow oxygen, not using accessory muscles of breathing.Head exam was generally normal. There was no scleral icterus or corneal arcus. Mucous membranes were moist.Neck was supple and without jugular venous distension, thyromegaly, or carotid bruits. Carotids were easily palpable bilaterally. There was no adenopathy. Poor dentition. Lung sounds are diminished in lung bases along with coarse crackles heard throughout the lung walters bilaterally especially in the lung bases.Cardiac exam revealed the PMI to be normally situated and sized. The rhythm was regular and no extrasystoles were noted during several minutes of auscultation. The first and second heart sounds were normal and physiologic splitting of the second heart sound was noted. There were no murmurs, rubs, clicks, or gallops.Abdominal exam revealed normal bowel sounds. The abdomen was soft, non- tender, and without masses, organomegaly, or appreciable enlargement of the abdominal aorta. Extremities show a healed wound over the right knee and there is no edema or swelling.Examination of the skin revealed no evidence of significant rashes, suspicious appearing nevi or other concerning lesions. Neurologically is awake and alert and following commands and moving all 4 extremities without any limitation skeletal shows no active arthritis or joint deformities. - Labs CBC & Chem 7: 08/18/17 05:34 08/18/17 05:34 Labs: Abnormal Lab Results - Last 24 Hours (Table) 08/18/17 08/18/17 08/18/17 Range/Units 05:34 05:34 10:49 WBC 14.9 H (3.8-10.6) k/uL RBC 2.51 L (4.30-5.90) m/uL Hgb 8.3 L (13.0-17.5) gm/dL Hct 26.3 L (39.0-53.0) % MCV 104.6 H (80.0-100.0) fL Sodium 135 L (137-145) mmol/L Chloride 95 L (98-107) mmol/L Carbon Dioxide 31 H (22-30) mmol/L Glucose 153 H (74-99) mg/dL POC Glucose (mg/dL) 187 H (75-99) mg/dL 08/18/17 Range/Units 11:46 WBC (3.8-10.6) k/uL RBC (4.30-5.90) m/uL Hgb (13.0-17.5) gm/dL Hct (39.0-53.0) % MCV (80.0-100.0) fL Sodium (137-145) mmol/L Chloride (98-107) mmol/L Carbon Dioxide (22-30) mmol/L Glucose (74-99) mg/dL POC Glucose (mg/dL) 136 H (75-99) mg/dL Microbiology - Last 24 Hours (Table) 08/16/17 21:20 Blood Culture - Preliminary Blood No Growth after 24 hours Assessment and Plan Plan: Assessment 1 acute hypoxic respiratory failure with diffuse bilateral pulmonary infiltrates and a dense consolidation of the right lower lobe giving a pseudotumor appearance. The findings are highly suspicious for pneumonia. Underlying CHF and fluid overload cannot be completely excluded. Note that the findings are a bit somewhat hard to characterize knowing that the patient is extensive asbestosis in the background. On 08/18/2017, the patient's respiratory status has decompensated. He has become progressively more hypoxic. The patient will be moved to the intensive care unit. Currently is BiPAP dependent. 2 asbestosis, by history with extensive pleural calcifications and fibrosis 3 coronary artery disease with abnormal troponin consistent with acute non-ST segment elevation myocardial infarction 4 preserved LV function with normal ejection fraction 5 obstructive sleep apnea maintained on CPAP therapy on outpatient basis 7 hyperlipidemia 8 osteoarthritis 9 recent right knee arthroplasty 10 BPH 11 acute non-ST segment elevation myocardial infarction with a troponin max of 1.8. PLAN Progressive worsening shortness of breath with hypoxemia and respiratory distress. The patient was moved to the intensive care unit. Currently the patient a BiPAP with an FiO2 of 80% in the BiPAP pressures of 12/5. We'll obtain a blood gas. Continue Zosyn and Levaquin. Add IV Solu Medrol 40 g every 8 hours. Continue bronchodilators. Continue Lasix. Keep the patient negative fluid balance. We'll obtain a blood gas. We'll continue monitoring this patient's history status and make further recommendations based on his progress. Repeat chest x-ray in the morning. Continue monitoring I's. Condition is critical. We'll continue to follow.
[2017-08-18 12:54] LABS: ABG Base Excess 8.5 mmol/L; ABG HCO3 32 mmol/L (21-25); ABG PCO2 38 mmHg (35-45); ABG PH 7.53 (7.35-7.45); ABG PO2 95 mmHg (83-108); ABG TCO2 33 mmol/L (19-24)
[2017-08-18] MEDS: ACETAMINOPHEN TAB 325 MG TAB PO PRN (13:34)
[2017-08-18] MEDS: TAMSULOSIN 0.4 MG CAP.ER.24H PO SCH (17:15)
[2017-08-18 17:43] LABS: Glucose,Whole Blood 134 mg/dL (75-99)
[2017-08-18] MEDS: ATORVASTATIN 80 MG TAB PO SCH (20:30)
[2017-08-18] MEDS: SERTRALINE 50 MG TAB PO SCH (20:31)
[2017-08-18] MEDS ORDERED: FUROSEMIDE 10 MG/ML 4 ML VIAL IV SCH (21:00)
[2017-08-18 23:40] LABS: Glucose,Whole Blood 131 mg/dL (75-99)
[2017-08-19] MEDS ORDERED: NOREPINEPHRIN 4 MG-0.9% NS PMX 4 MG/250 ML ML IV SCH (03:00)
--- NOTE | 2017-08-19 04:40 | PN ---
PROGRESS NOTE Mr. García is an 87-year-old male with a history of asbestosis, history of coronary artery disease, prior percutaneous revascularization, who presented with symptoms of progressive dyspnea. During the night, he became more dyspneic and was transferred to the ICU and placed on the BiPAP. He is feeling better at this time with improvement in his breathing pattern and denying any symptoms of chest discomfort. Hemodynamically, he is stable. His chest x-ray revealed evidence of small consolidation in the right upper lobe very suspicious of pneumonia. He has continued to be at this time on: 1. Aspirin once a day. 2. Lipitor 80 mg daily. 3. Furosemide 40 mg IV every 12 hours. 4. Insulin. 5. Methylprednisolone. 6. Midodrine. 7. Tamsulosin. PHYSICAL EXAMINATION: Blood pressure 94/50 with a heart rate in the 70s. LUNGS: Decrease in breath sounds with no wheezes appreciated. HEART: Regular rate and rhythm. S1, S2. No S3 with a systolic murmur. No diastolic murmur. No rub. ABDOMEN: Soft, nontender. Positive bowel sounds. EXTREMITIES: No significant edema. LAB DATA: Revealed BUN and creatinine of 15 and 0.8, potassium is 3.5. His troponin is up to 1.89 yesterday. IMPRESSION: 1. Respiratory failure with evidence of pneumonia. 2. Troponin elevation most likely representing a type 2 event related to his hypoxemia. 3. Asbestosis. 4. Hyperlipidemia. 5. Recent knee surgery. 6. Episode of hypotension maintained on midodrine. RECOMMENDATION: From the cardiac standpoint, will continue clinical observation on present therapy. Will follow his renal function tomorrow. Depending on his chest x-ray and his status, the dose of his diuretic can be adjusted. The antibiotics management will be continued. MMODL / IJN: [id number] /
[2017-08-19 04:52] LABS: Basophils % (A) 0 %; CH 33.3; Eosinophils % (A) 0 %; HDW 3.28; HGB 8.9 gm/dL (13.0-17.5); Hypochromasia Slight; Luc # (Auto) 0.04; Luc % (Auto) 0; Lymphocytes # (A) 0.7 k/uL (1.0-4.8); Lymphocytes % (A) 6 %; MCHC 30.6 g/dL (31.0-37.0); MCV 104.3 fL (80.0-100.0); Macrocytosis Moderate; Mean Platelet Volume 7.4; Monocytes # (A) 0.2 k/uL (0-1.0); Monocytes % (A) 2 %; Neutrophils # (A) 10.9 k/uL (1.3-7.7); Neutrophils % (A) 92 %; RBC 2.78 m/uL (4.30-5.90); RDW 15.4 % (11.5-15.5); WBC 11.8 k/uL (3.8-10.6); WBC (Perox) 12.91
[2017-08-19 05:02] LABS: Anion Gap 9 mmol/L; Blood Urea Nitrogen 20 mg/dL (9-20); Calcium 8.9 mg/dL (8.4-10.2); Carbon Dioxide 34 mmol/L (22-30); Chloride 96 mmol/L (98-107); Glucose 121 mg/dL (74-99); Magnesium 2.3 mg/dL (1.6-2.3); Non-African American GFR(MDRD) >60 (>60 ml/min/1.73 sqM); Phosphorus 3.8 mg/dL (2.5-4.5); Potassium 3.7 mmol/L (3.5-5.1); Sodium 139 mmol/L (137-145)
[2017-08-19 05:25] LABS: Glucose,Whole Blood 123 mg/dL (75-99)
[2017-08-19] MEDS: INSULIN LISPRO (humaLOG) 300 UNIT/3 ML VIAL SQ SCH ×4 (05:25→20:07)
[2017-08-19] MEDS ORDERED: Potassium Replacement Protocol 1 EACH MISC MISCELLANE PRN (05:30)
[2017-08-19] MEDS ORDERED: POTASSIUM CHLORIDE ER 20 MEQ TAB.ER PO SCH (06:00)
[2017-08-19] MEDS: ACETAMINOPHEN TAB 325 MG TAB PO PRN ×2 (06:58→20:13)
[2017-08-19] MEDS: MIDODRINE 5 MG TAB PO SCH ×3 (06:58→18:01)
[2017-08-19] MEDS: IPRATROPIUM-ALBUTEROL 3 ML NEB INHALATION SCH ×4 (07:21→19:46)
--- NOTE | 2017-08-19 07:32 | XR ---
EXAMINATION TYPE: XR chest 1V DATE OF EXAM: 08/19/2017 COMPARISON: 08/18/[address] 08/16/2017 HISTORY: 87-year-old male follow-up pneumonia TECHNIQUE: Single frontal view of the chest is obtained. FINDINGS: Heart remains borderline to mildly large. Multifocal airspace disease is redemonstrated, greatest wit hin the right upper lobe. There has been some interval improvement in the interstitial densities and aeration in the left upper lobe as well. Bilateral calcified pleural plaques are demonstrated. Known right lower lobe mass by outside CT. IMPRESSION: 1. Continued multifocal airspace disease or pulmonary edema though with improving appearance to the i nterstitium and improving aeration in the left upper lobe. 2. Known right lower lobe mass by outside CT. 3. Asbestos-related pleural disease.
[2017-08-19] MEDS: ENOXAPARIN 40 MG/0.4 ML SYRINGE SQ SCH (08:09)
[2017-08-19] MEDS: PANTOPRAZOLE 40 MG/10 ML VIAL IV SCH (08:09)
[2017-08-19] MEDS: methylPREDNISolone SOD SUCCI 40 MG/ML 1 ML VIAL IV SCH ×2 (08:10→20:04)
[2017-08-19] MEDS: ASPIRIN 81 MG PO SCH (08:10)
[2017-08-19] MEDS: FLUDROCORTISONE 0.1 MG TAB PO SCH (08:10)
[2017-08-19] MEDS: PIPERACILLIN-TAZOBACTAM 3.375 GM in DEXTROSE/WATER 1 50ML.BAG IVPB SCH ×2 (08:11→16:09)
[2017-08-19] MEDS: LEVOFLOXACIN 750MG-D5W PMX 750 MG in DEXTROSE/WATER 1 150ML.BAG IVPB SCH (08:12)
--- NOTE | 2017-08-19 08:16 | P.PN ---
Subjective Progress Note Date: 08/19/17 This is an 87-year-old male patient was referred to us from [facility] because of worsening shortness of breath. The patient was on ECF where he was undergoing rehabilitation for shortness of breath and dizziness. He has history of asbestosis with extensive bilateral pleural calcification as evident on previous chest x-rays. Based on his worsening shortness of breath, a CAT scan of the chest was done and it showed bilateral pleural effusion, interstitial edema, a questionable 4 cm right lower lobe mass and extensive bilateral pleural calcification typical of an underlying asbestosis. No significant cough or sputum production. No fever chills or night sweats. The patient was transferred here and I reviewed the CAT scan of the chest. Troponins were minimally elevated and troponin maxed is at 0.3 and 0.7. Echocardiogram from July of this year showed an ejection fraction of 55-60 % with mild TR, mild MR and mild pulmonary hypertension. He has history of coronary artery disease, hyperlipidemia and osteoarthritis along with glaucoma and depression. He has had previous cardiac stents placed. He is known to have coronary artery disease .Note that the patient was in the hospital on 07/28 for a total right knee arthroplasty. The procedure was performed without any complications. Postop the patient had a fall and he had orthostatic hypotension and urinary retention. He had an echocardiogram that showed no significant abnormalities. Doppler of the lower extremity was also negative. He was started on Florinef. He was ultimately sent to [facility] for rehabilitation. On 08/18/2017 I'm seeing this patient for a follow-up. I can't understand that overnight the patient's condition decompensated. He became progressively more hypoxic. Based on that he was placed on a BiPAP at a pressure of 12/5 cm of water and FiO2 of 80%. His current pulse ox is barely above 90%. He is short of breath. I reviewed the chest x-ray from today and there is a dense consolidation of the right upper lobe in addition to extensive background fibrosis and asbestosis with significant pleural calcification. The patient is still short of breath and he is having some limited shortness of breath even at rest. He has a congested cough. Unable to bring up much sputum. His blood culture been negative thus far. His white cell count is elevated at 14.4. Hemoglobin stable at 8.3. He is covered with broad-spectrum antibiotics and he is coming on a combination of Zosyn and Levaquin. Is being diuresis gently with Lasix 40 mg IV push every 12 hours. He is also on bronchodilators with DuoNeb the last treatment [id number]. He'll be transferred to the intensive care unit. He'll be started also on some systemic steroids. On 08/19/2017 I'm seeing this patient in follow-up. The patient is feeling much better. He is less short of breath. This morning he was taken off the BiPAP and is currently on high flow oxygen at 15 L and saturations around 97%. I'm in the process of weaning down the FiO2 down to 12% and down to 10%. Chest x-ray from today shows and it shows multifocal airspace disease/infiltrates with improved aeration of the left upper lobe. There is also an opacity in the right lung base which is probably a pseudotumor. His underlying interstitial fibrosis and asbestosis. 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 No nausea. No vomiting. No abdominal pain. No hypotension. No drop in urine output. He remains on a combination of Levaquin and Zosyn as broad- spectrum antibiotic coverage. The latency count is stable at 11.8. No other significant events overnight. Objective - Vital Signs Vital signs: Vital Signs Temp 97.5 F L 08/19/17 04:00 Pulse 78 08/19/17 07:36 Resp 28 H 08/19/17 07:00 BP 107/57 08/19/17 07:00 Pulse Ox 100 08/19/17 07:00 Intake & Output 08/18/17 08/19/17 08/19/17 18:59 06:59 18:59 Intake Total 180 440.0 20 Output Total 585 430 15 Balance -405 10.0 5 Weight 81.2 kg Intake: IV 180 290.0 20 Piperacillin-Tazobactam 3 50.0 .375 gm In Dextrose/Water 1 50ml.bag @ 12.5 mls/hr IVPB Q8HR [facility] Rx#: [id number] Sodium Chloride 0.9% 1, 180 240 20 000 ml @ 20 mls/hr IV . Q24H [facility] Rx#:[id number] Oral 0 150 Output: Urine 585 430 15 Other: Voiding Method Indwelling Catheter Indwelling Catheter # Voids 0 - Exam Elderly, nonacute distress, currently on high flow oxygen, not using accessory muscles of breathing.Head exam was generally normal. There was no scleral icterus or corneal arcus. Mucous membranes were moist.Neck was supple and without jugular venous distension, thyromegaly, or carotid bruits. Carotids were easily palpable bilaterally. There was no adenopathy. Poor dentition. Lung sounds are diminished in lung bases along with coarse crackles heard throughout the lung walters bilaterally especially in the lung bases.Cardiac exam revealed the PMI to be normally situated and sized. The rhythm was regular and no extrasystoles were noted during several minutes of auscultation. The first and second heart sounds were normal and physiologic splitting of the second heart sound was noted. There were no murmurs, rubs, clicks, or gallops.Abdominal exam revealed normal bowel sounds. The abdomen was soft, non- tender, and without masses, organomegaly, or appreciable enlargement of the abdominal aorta. Extremities show a healed wound over the right knee and there is no edema or swelling.Examination of the skin revealed no evidence of significant rashes, suspicious appearing nevi or other concerning lesions. Neurologically is awake and alert and following commands and moving all 4 extremities without any limitation skeletal shows no active arthritis or joint deformities. - Labs CBC & Chem 7: 08/19/17 04:23 08/19/17 04:23 Labs: Abnormal Lab Results - Last 24 Hours (Table) 08/18/17 08/18/17 08/18/17 Range/Units 10:49 11:46 12:47 WBC (3.8-10.6) k/uL RBC (4.30-5.90) m/uL Hgb (13.0-17.5) gm/dL Hct (39.0-53.0) % MCV (80.0-100.0) fL MCHC (31.0-37.0) g/dL Neutrophils # (1.3-7.7) k/uL Lymphocytes # (1.0-4.8) k/uL ABG pH 7.53 H (7.35-7.45) ABG HCO3 32 H (21-25) mmol/L ABG Total CO2 33 H (19-24) mmol/L ABG O2 Saturation 98.0 H (94-97) % Chloride (98-107) mmol/L Carbon Dioxide (22-30) mmol/L Glucose (74-99) mg/dL POC Glucose (mg/dL) 187 H 136 H (75-99) mg/dL 08/18/17 08/18/17 08/19/17 Range/Units 17:41 23:37 04:23 WBC 11.8 H (3.8-10.6) k/uL RBC 2.78 L (4.30-5.90) m/uL Hgb 8.9 L (13.0-17.5) gm/dL Hct 29.0 L (39.0-53.0) % MCV 104.3 H (80.0-100.0) fL MCHC 30.6 L (31.0-37.0) g/dL Neutrophils # 10.9 H (1.3-7.7) k/uL Lymphocytes # 0.7 L (1.0-4.8) k/uL ABG pH (7.35-7.45) ABG HCO3 (21-25) mmol/L ABG Total CO2 (19-24) mmol/L ABG O2 Saturation (94-97) % Chloride (98-107) mmol/L Carbon Dioxide (22-30) mmol/L Glucose (74-99) mg/dL POC Glucose (mg/dL) 134 H 131 H (75-99) mg/dL 08/19/17 08/19/17 Range/Units 04:23 05:23 WBC (3.8-10.6) k/uL RBC (4.30-5.90) m/uL Hgb (13.0-17.5) gm/dL Hct (39.0-53.0) % MCV (80.0-100.0) fL MCHC (31.0-37.0) g/dL Neutrophils # (1.3-7.7) k/uL Lymphocytes # (1.0-4.8) k/uL ABG pH (7.35-7.45) ABG HCO3 (21-25) mmol/L ABG Total CO2 (19-24) mmol/L ABG O2 Saturation (94-97) % Chloride 96 L (98-107) mmol/L Carbon Dioxide 34 H (22-30) mmol/L Glucose 121 H (74-99) mg/dL POC Glucose (mg/dL) 123 H (75-99) mg/dL Microbiology - Last 24 Hours (Table) 08/16/17 21:20 Blood Culture - Preliminary Blood No Growth after 48 hours 08/18/17 11:20 Urine Culture - Preliminary Urine,Catheterized Assessment and Plan Plan: Assessment 1 acute hypoxic respiratory failure with diffuse bilateral pulmonary infiltrates and a dense consolidation of the right lower lobe giving a pseudotumor appearance. The findings are highly suspicious for pneumonia. Underlying CHF and fluid overload cannot be completely excluded. Note that the findings are a bit somewhat hard to characterize knowing that the patient is extensive asbestosis in the background. On 08/18/2017, the patient's respiratory status has decompensated. He has become progressively more hypoxic. The patient will be moved to the intensive care unit. Currently is BiPAP dependent. On 08/19/2017 the patient is more stable currently I off BiPAP and the patient is on high flow oxygen in the process of being weaned on his FiO2. Chest x-ray shows some limited improvement in aeration of the left upper lobe and there is still right upper lobe consolidation and background asbestosis with interstitial fibrosis. Nevertheless he is less short of breath and less tachypneic compared to yesterday. Cultures of been all negative. He still on examination Zosyn and Levaquin. 2 asbestosis, by history with extensive pleural calcifications and fibrosis 3 coronary artery disease with abnormal troponin consistent with acute non-ST segment elevation myocardial infarction 4 preserved LV function with normal ejection fraction 5 obstructive sleep apnea maintained on CPAP therapy on outpatient basis 7 hyperlipidemia 8 osteoarthritis 9 recent right knee arthroplasty 10 BPH 11 acute non-ST segment elevation myocardial infarction with a troponin max of 1.8. PLAN Clinically stable. Somewhat improved compared to yesterday. Wean down the FiO2 as tolerated. Repeat chest x-ray in the morning. BiPAP on and off during the day as tolerated. We'll keep the patient ICU for another 24 hours. No need for pressors. May restart Lasix as the blood pressure tolerates. Will continue to follow.
[2017-08-19] MEDS: FUROSEMIDE 10 MG/ML 4 ML VIAL IV SCH (08:55)
[2017-08-19] MEDS: TIMOLOL 0.5% OPHTH DROPS 5 ML BTL BOTH EYES SCH (09:00)
[2017-08-19] MEDS: POLYETHYLENE GLYCOL 3350 17 GM POWD.PACK PO SCH (09:00)
[2017-08-19] MEDS: SENNOSIDES-DOCUSATE SODIUM 1 EACH TAB PO SCH ×2 (09:01→20:05)
--- NOTE | 2017-08-19 09:14 | PN ---
PROGRESS NOTE Mr. García is an 87-year-old male with known history of coronary artery disease, history of asbestosis, hyperlipidemia, who presented to the hospital with symptoms of progressive dyspnea and cough. He had findings consistent with pneumonia. Yesterday, he became more dyspneic, requiring a BiPAP and a transfer to the ICU. He is feels and looks much better. He is off his BiPAP, on nasal cannula. Hemodynamically stable. He has no symptoms of chest pain, dizziness or palpitation. He denies any nausea. On the monitor, he is in sinus mechanism. He continues to be at this time on aspirin, Lipitor 80 mg daily, Lovenox subcutaneously, Lasix 40 mg IV q.12 hours, midodrine in addition to his antibiotics. PHYSICAL EXAMINATION: Blood pressure 109/69 with a heart rate in the 90s. LUNGS: With scattered crackles. No wheezes. HEART: Regular rate and rhythm. S1, S2. No S3. No rub appreciated. ABDOMEN: Soft, nontender. Positive bowel sounds. No organomegaly. EXTREMITIES: No significant edema. LAB DATA: Lab data revealed BUN and creatinine 20 and 0.69. Potassium 3.7. Hemoglobin is 8.9. Chest x-ray revealed the asbestosis with the infiltrate noted in the right lobe with small pleural effusion. RECOMMENDATION: I will cut down the dose of the diuretic to 40 mg IV daily, follow his renal function. Continue on the rest of his medical regimen. The decision to transfer out of the unit will be left to Dr. Davis. MMMENA / OSITON: [id number] /
[2017-08-19 12:26] LABS: Glucose,Whole Blood 234 mg/dL (75-99)
--- NOTE | 2017-08-19 13:38 | P.PN ---
Subjective Patient is currently maintained on BiPAP in the intensive care unit. He is to desats when off the BiPAP machine. Objective - Vital Signs Vital signs: Vital Signs Temp 98.4 F 08/19/17 08:00 Pulse 72 08/19/17 11:32 Resp 21 08/19/17 11:00 BP 100/54 08/19/17 11:00 Pulse Ox 98 08/19/17 11:00 Intake & Output 08/18/17 08/19/17 08/19/17 18:59 06:59 18:59 Intake Total 180 440.0 100 Output Total 585 430 555 Balance -405 10.0 -455 Weight 81.2 kg Intake: IV 180 290.0 100 Piperacillin-Tazobactam 3 50.0 .375 gm In Dextrose/Water 1 50ml.bag @ 12.5 mls/hr IVPB Q8HR [facility] Rx#: [id number] Sodium Chloride 0.9% 1, 180 240 100 000 ml @ 20 mls/hr IV . Q24H [facility] Rx#:[id number] Oral 0 150 Output: Urine 585 430 555 Other: Voiding Method Indwelling Catheter Indwelling Catheter Indwelling Catheter # Voids 0 - Exam General: The patient is awake and alert, in no distress Eye: there is normal conjunctiva bilaterally. Neck: The neck is supple, there is no JVD. Cardiovascular: Normal S1-S2, no S3-S4, no murmurs. Respiratory: Lungs with bibasilar crackles Gastrointestinal: Abdomen is soft, nontender Musculoskeletal: There is no pedal edema. Neurological:. Speech is normal. Skin: Skin is warm and dry - Labs CBC & Chem 7: 08/19/17 04:23 08/19/17 04:23 Labs: Abnormal Lab Results - Last 24 Hours (Table) 08/18/17 08/18/17 08/19/17 Range/Units 17:41 23:37 04:23 WBC 11.8 H (3.8-10.6) k/uL RBC 2.78 L (4.30-5.90) m/uL Hgb 8.9 L (13.0-17.5) gm/dL Hct 29.0 L (39.0-53.0) % MCV 104.3 H (80.0-100.0) fL MCHC 30.6 L (31.0-37.0) g/dL Neutrophils # 10.9 H (1.3-7.7) k/uL Lymphocytes # 0.7 L (1.0-4.8) k/uL Chloride (98-107) mmol/L Carbon Dioxide (22-30) mmol/L Glucose (74-99) mg/dL POC Glucose (mg/dL) 134 H 131 H (75-99) mg/dL 08/19/17 08/19/17 08/19/17 Range/Units 04:23 05:23 12:23 WBC (3.8-10.6) k/uL RBC (4.30-5.90) m/uL Hgb (13.0-17.5) gm/dL Hct (39.0-53.0) % MCV (80.0-100.0) fL MCHC (31.0-37.0) g/dL Neutrophils # (1.3-7.7) k/uL Lymphocytes # (1.0-4.8) k/uL Chloride 96 L (98-107) mmol/L Carbon Dioxide 34 H (22-30) mmol/L Glucose 121 H (74-99) mg/dL POC Glucose (mg/dL) 123 H 234 H (75-99) mg/dL Microbiology - Last 24 Hours (Table) 08/18/17 11:20 Urine Culture - Final Urine,Catheterized 08/16/17 21:20 Blood Culture - Preliminary Blood No Growth after 48 hours Assessment and Plan Plan: 1. Progressive dyspnea with suspected healthcare acquired pneumonia 2. Diastolic heart failure exacerbation with pulmonary edema 3. Coronary artery disease with prior stent placement 4. Chronic orthostatic hypotension 5. Obstructive sleep apnea 6. Acute hypoxic respiratory failure Today, I reviewed his medication list and lab work results. Wean off O2 as tolerated for O2 sats above 90%. Appreciate plan consultant's recommendations. Continue current regimen. Patient prognosis is guarded. No family members at bedside to be updated. I will continue to follow up on him closely.
[2017-08-19 17:48] LABS: Glucose,Whole Blood 120 mg/dL (75-99)
[2017-08-19] MEDS: TAMSULOSIN 0.4 MG CAP.ER.24H PO SCH (18:01)
[2017-08-19] MEDS: POTASSIUM CHLORIDE ER 20 MEQ TAB.ER PO SCH (18:48)
[2017-08-19] MEDS: SODIUM CHLORIDE 0.9% 1,000 ML IV SCH (20:03)
[2017-08-19] MEDS: SERTRALINE 50 MG TAB PO SCH (20:04)
[2017-08-19] MEDS: ATORVASTATIN 80 MG TAB PO SCH (20:04)
[2017-08-19 20:09] LABS: Glucose,Whole Blood 168 mg/dL (75-99)
[2017-08-20] MEDS: PIPERACILLIN-TAZOBACTAM 3.375 GM in DEXTROSE/WATER 1 50ML.BAG IVPB SCH ×4 (00:28→23:00)
[2017-08-20] MEDS: LORazepam 2 MG/ML INJ IV PRN ×2 (02:08→21:42)
[2017-08-20 05:04] LABS: Basophils % (A) 0 %; CH 32.6; CHCM 31.4; Eosinophils % (A) 0 %; HCT 26.2 % (39.0-53.0); HGB 8.1 gm/dL (13.0-17.5); Hypochromasia Moderate; Luc # (Auto) 0.15; Luc % (Auto) 1; Lymphocytes # (A) 0.8 k/uL (1.0-4.8); Lymphocytes % (A) 5 %; MCH 32.3 pg (25.0-35.0); MCV 104.4 fL (80.0-100.0); Macrocytosis Moderate; Mean Platelet Volume 7.3; Monocytes # (A) 0.5 k/uL (0-1.0); Monocytes % (A) 3 %; Neutrophils # (A) 13.1 k/uL (1.3-7.7); Neutrophils % (A) 90 %; RBC 2.51 m/uL (4.30-5.90); RDW 14.9 % (11.5-15.5); WBC 14.5 k/uL (3.8-10.6); WBC (Perox) 14.58
[2017-08-20 05:21] LABS: Anion Gap 9 mmol/L; Blood Urea Nitrogen 24 mg/dL (9-20); Calcium 8.5 mg/dL (8.4-10.2); Carbon Dioxide 30 mmol/L (22-30); Chloride 96 mmol/L (98-107); Glucose 124 mg/dL (74-99); Magnesium 2.3 mg/dL (1.6-2.3); Non-African American GFR(MDRD) >60 (>60 ml/min/1.73 sqM); Phosphorus 2.9 mg/dL (2.5-4.5); Potassium 3.5 mmol/L (3.5-5.1); Sodium 135 mmol/L (137-145)
[2017-08-20] MEDS ORDERED: Potassium Replacement Protocol 1 EACH MISC MISCELLANE PRN (05:46)
[2017-08-20] MEDS: POTASSIUM CHLORIDE ER 20 MEQ TAB.ER PO SCH ×2 (06:52→07:57)
--- NOTE | 2017-08-20 07:25 | XR ---
EXAMINATION TYPE: XR chest 1V DATE OF EXAM: 08/20/2017 HISTORY: Shortness of breath. COMPARISON: 08/19/2017 TECHNIQUE: Single view of the chest is submitted. FINDINGS: Demonstrated are scattered senescent parenchymal change. Persistent calcified pleural plaques seen b ilaterally. There is persistent multifocal airspace disease unchanged from prior study. The heart is stable. Hilar and mediastinal structures are within normal limits. Degenerative changes are seen of the dorsal spine. IMPRESSION: 1. Stable chest.
[2017-08-20] MEDS: IPRATROPIUM-ALBUTEROL 3 ML NEB INHALATION SCH ×4 (07:28→19:04)
[2017-08-20 07:50] LABS: Glucose,Whole Blood 134 mg/dL (75-99)
[2017-08-20] MEDS: INSULIN LISPRO (humaLOG) 300 UNIT/3 ML VIAL SQ SCH ×4 (07:57→20:56)
[2017-08-20] MEDS: MIDODRINE 5 MG TAB PO SCH ×3 (07:58→17:26)
[2017-08-20] MEDS: LEVOFLOXACIN 750 MG TAB PO SCH (09:39)
[2017-08-20] MEDS: ENOXAPARIN 40 MG/0.4 ML SYRINGE SQ SCH (09:39)
[2017-08-20] MEDS: FLUDROCORTISONE 0.1 MG TAB PO SCH (09:39)
[2017-08-20] MEDS: ASPIRIN 81 MG PO SCH (09:39)
[2017-08-20] MEDS: FUROSEMIDE 10 MG/ML 4 ML VIAL IV SCH (09:39)
[2017-08-20] MEDS: TIMOLOL 0.5% OPHTH DROPS 5 ML BTL BOTH EYES SCH (09:40)
[2017-08-20] MEDS: POLYETHYLENE GLYCOL 3350 17 GM POWD.PACK PO SCH (09:40)
[2017-08-20] MEDS: methylPREDNISolone SOD SUCCI 40 MG/ML 1 ML VIAL IV SCH ×2 (09:40→20:56)
[2017-08-20] MEDS: PANTOPRAZOLE 40 MG/10 ML VIAL IV SCH (09:40)
[2017-08-20] MEDS: SENNOSIDES-DOCUSATE SODIUM 1 EACH TAB PO SCH ×2 (09:40→20:56)
[2017-08-20] MEDS ORDERED: RX INFO: IV CONTRAST WAS GIVEN 1 EACH MISC MISCELLANE PRN (09:44)
--- NOTE | 2017-08-20 09:44 | P.PN ---
<Maria Victoria,Liz - Last Filed: 08/20/17 09:47> Subjective Progress Note Date: 08/20/17 Principal diagnosis: Acute hypoxic respiratory failure secondary to diffuse bilateral pulmonary infiltrates. This is an 87-year-old male patient was referred to us from [facility] because of worsening shortness of breath. The patient was on ECF where he was undergoing rehabilitation for shortness of breath and dizziness. He has history of asbestosis with extensive bilateral pleural calcification as evident on previous chest x-rays. Based on his worsening shortness of breath, a CAT scan of the chest was done and it showed bilateral pleural effusion, interstitial edema, a questionable 4 cm right lower lobe mass and extensive bilateral pleural calcification typical of an underlying asbestosis. No significant cough or sputum production. No fever chills or night sweats. The patient was transferred here and I reviewed the CAT scan of the chest. Troponins were minimally elevated and troponin maxed is at 0.3 and 0.7. Echocardiogram from July of this year showed an ejection fraction of 55-60 % with mild TR, mild MR and mild pulmonary hypertension. He has history of coronary artery disease, hyperlipidemia and osteoarthritis along with glaucoma and depression. He has had previous cardiac stents placed. He is known to have coronary artery disease .Note that the patient was in the hospital on 07/28 for a total right knee arthroplasty. The procedure was performed without any complications. Postop the patient had a fall and he had orthostatic hypotension and urinary retention. He had an echocardiogram that showed no significant abnormalities. Doppler of the lower extremity was also negative. He was started on Florinef. He was ultimately sent to [facility] for rehabilitation. On 08/18/2017 I'm seeing this patient for a follow-up. I can't understand that overnight the patient's condition decompensated. He became progressively more hypoxic. Based on that he was placed on a BiPAP at a pressure of 12/5 cm of water and FiO2 of 80%. His current pulse ox is barely above 90%. He is short of breath. I reviewed the chest x-ray from today and there is a dense consolidation of the right upper lobe in addition to extensive background fibrosis and asbestosis with significant pleural calcification. The patient is still short of breath and he is having some limited shortness of breath even at rest. He has a congested cough. Unable to bring up much sputum. His blood culture been negative thus far. His white cell count is elevated at 14.4. Hemoglobin stable at 8.3. He is covered with broad-spectrum antibiotics and he is coming on a combination of Zosyn and Levaquin. Is being diuresis gently with Lasix 40 mg IV push every 12 hours. He is also on bronchodilators with DuoNeb the last treatment [id number]. He'll be transferred to the intensive care unit. He'll be started also on some systemic steroids. On 08/19/2017 I'm seeing this patient in follow-up. The patient is feeling much better. He is less short of breath. This morning he was taken off the BiPAP and is currently on high flow oxygen at 15 L and saturations around 97%. I'm in the process of weaning down the FiO2 down to 12% and down to 10%. Chest x-ray from today shows and it shows multifocal airspace disease/infiltrates with improved aeration of the left upper lobe. There is also an opacity in the right lung base which is probably a pseudotumor. His underlying interstitial fibrosis and asbestosis. The patient is having an cutter machine breakfast today. No nausea. No vomiting. No abdominal pain. No hypotension. No drop in urine output. He remains on a combination of Levaquin and Zosyn as broad- spectrum antibiotic coverage. The latency count is stable at 11.8. No other significant events overnight. The patient is seen again today 08/20/2017 in follow-up in the intensive care unit. He is awake and alert in no acute distress. His chest x-ray shows improved aeration bilaterally. Unfortunately, the patient still requires BiPAP support with an increase in the IPAP of 12 and EPAP of 5. He remains on 70% FiO2 to maintain O2 saturations in the 90s. He was placed on 15 L high flow nasal cannula for breakfast and desaturated fairly quickly into the 80s. He is currently comfortable again on BiPAP. He remains on DuoNeb inhalations 4 times a day and when necessary, IV Lasix, IV Solu-Medrol, antibiotics in the form of Zosyn and Levaquin. White count 14.5. Hemoglobin 8.1. Creatinine remains stable at 0.60. Objective - Vital Signs Vital signs: Vital Signs Temp 97.6 F 08/20/17 08:00 Pulse 82 08/20/17 09:00 Resp 22 08/20/17 09:00 BP 112/63 08/20/17 09:00 Pulse Ox 93 L 08/20/17 09:00 Intake & Output 08/19/17 08/20/17 08/20/17 18:59 06:59 18:59 Intake Total 240 390.0 20 Output Total 863 830 75 Balance -623 -440.0 -55 Weight 81.2 kg 83 kg Intake: IV 240 290.0 20 Piperacillin-Tazobactam 3 50.0 .375 gm In Dextrose/Water 1 50ml.bag @ 12.5 mls/hr IVPB Q8HR J[facility]ON Rx#: [id number] Sodium Chloride 0.9% 1, 240 240 20 000 ml @ 20 mls/hr IV . Q24H J[facility]NSON Rx#:[id number] Oral 100 Output: Urine 863 830 75 Other: Voiding Method Indwelling Catheter Indwelling Catheter Indwelling Catheter # Voids 0 # Bowel Movements 1 1 - Exam Elderly, nonacute distress, currently on high flow oxygen, not using accessory muscles of breathing.Head exam was generally normal. There was no scleral icterus or corneal arcus. Mucous membranes were moist.Neck was supple and without jugular venous distension, thyromegaly, or carotid bruits. Carotids were easily palpable bilaterally. There was no adenopathy. Poor dentition. Lung sounds are diminished in lung bases along with coarse crackles heard throughout the lung walters bilaterally especially in the lung bases.Cardiac exam revealed the PMI to be normally situated and sized. The rhythm was regular and no extrasystoles were noted during several minutes of auscultation. The first and second heart sounds were normal and physiologic splitting of the second heart sound was noted. There were no murmurs, rubs, clicks, or gallops.Abdominal exam revealed normal bowel sounds. The abdomen was soft, non- tender, and without masses, organomegaly, or appreciable enlargement of the abdominal aorta. Extremities show a healed wound over the right knee and there is no edema or swelling.Examination of the skin revealed no evidence of significant rashes, suspicious appearing nevi or other concerning lesions. Neurologically is awake and alert and following commands and moving all 4 extremities without any limitation skeletal shows no active arthritis or joint deformities. - Labs CBC & Chem 7: 08/20/17 04:28 08/20/17 04:25 Labs: Abnormal Lab Results - Last 24 Hours (Table) 08/19/17 08/19/17 08/19/17 Range/Units 12:23 16:28 17:47 WBC (3.8-10.6) k/uL RBC (4.30-5.90) m/uL Hgb (13.0-17.5) gm/dL Hct (39.0-53.0) % MCV (80.0-100.0) fL Neutrophils # (1.3-7.7) k/uL Lymphocytes # (1.0-4.8) k/uL Sodium (137-145) mmol/L Potassium 3.1 L (3.5-5.1) mmol/L Chloride (98-107) mmol/L BUN (9-20) mg/dL Creatinine (0.66-1.25) mg/dL Glucose (74-99) mg/dL POC Glucose (mg/dL) 234 H 120 H (75-99) mg/dL 08/19/17 08/20/17 08/20/17 Range/Units 20:07 04:25 04:28 WBC 14.5 H (3.8-10.6) k/uL RBC 2.51 L (4.30-5.90) m/uL Hgb 8.1 L (13.0-17.5) gm/dL Hct 26.2 L (39.0-53.0) % MCV 104.4 H (80.0-100.0) fL Neutrophils # 13.1 H (1.3-7.7) k/uL Lymphocytes # 0.8 L (1.0-4.8) k/uL Sodium 135 L (137-145) mmol/L Potassium (3.5-5.1) mmol/L Chloride 96 L (98-107) mmol/L BUN 24 H (9-20) mg/dL Creatinine 0.60 L (0.66-1.25) mg/dL Glucose 124 H (74-99) mg/dL POC Glucose (mg/dL) 168 H (75-99) mg/dL 08/20/17 Range/Units 07:48 WBC (3.8-10.6) k/uL RBC (4.30-5.90) m/uL Hgb (13.0-17.5) gm/dL Hct (39.0-53.0) % MCV (80.0-100.0) fL Neutrophils # (1.3-7.7) k/uL Lymphocytes # (1.0-4.8) k/uL Sodium (137-145) mmol/L Potassium (3.5-5.1) mmol/L Chloride (98-107) mmol/L BUN (9-20) mg/dL Creatinine (0.66-1.25) mg/dL Glucose (74-99) mg/dL POC Glucose (mg/dL) 134 H (75-99) mg/dL Microbiology - Last 24 Hours (Table) 08/16/17 21:20 Blood Culture - Preliminary Blood No Growth after 72 hours 08/18/17 11:20 Urine Culture - Final Urine,Catheterized Assessment and Plan Plan: Assessment 1 acute hypoxic respiratory failure with diffuse bilateral pulmonary infiltrates and a dense consolidation of the right lower lobe giving a pseudotumor appearance. The findings are highly suspicious for pneumonia. Underlying diastolic CHF and fluid overload cannot be completely excluded. Note that the findings are a bit somewhat hard to characterize knowing that the patient is extensive asbestosis in the background. On 08/18/2017, the patient's respiratory status has decompensated. He has become progressively more hypoxic. The patient will be moved to the intensive care unit. Currently is BiPAP dependent. On 08/19/2017 the patient is more stable currently I off BiPAP and the patient is on high flow oxygen in the process of being weaned on his FiO2. Chest x-ray shows some limited improvement in aeration of the left upper lobe and there is still right upper lobe consolidation and background asbestosis with interstitial fibrosis. Nevertheless he is less short of breath and less tachypneic compared to yesterday. Cultures of been all negative. He still on examination Zosyn and Levaquin. On 08/20/2017 the patient continues to require high FiO2 to maintain O2 saturations in the 90s. Currently on BiPAP at 12/5 and 70% FiO2. He did desaturate into the 80s on 15 L of high flow nasal cannula while having breakfast this morning. He is continued on IV Zosyn, Levaquin, IV diuretics, IV Solu-Medrol, bronchodilators. We'll add Pulmicort inhalations. 2 asbestosis, by history with extensive pleural calcifications and fibrosis 3 coronary artery disease with abnormal troponin consistent with acute non-ST segment elevation myocardial infarction 4 preserved LV function with normal ejection fraction 5 obstructive sleep apnea maintained on CPAP therapy on outpatient basis 7 hyperlipidemia 8 osteoarthritis 9 recent right knee arthroplasty 10 BPH 11 acute non-ST segment elevation myocardial infarction with a troponin max of 1.8. PLAN: The patient was seen and evaluated by Dr. Davis. His chest x-ray and labs were reviewed. The patient does continue to require increased FiO2 to maintain O2 saturations in the 90s. We will continue with his current medications including IV diuretics, IV Solu Medrol, bronchodilators and antibiotics. We'll add Pulmicort inhalations twice a day. We'll obtain a computed tomography scan of the chest today. We will continue to monitor him here closely in the intensive care unit. We will continue to follow. <John Davis - Last Filed: 08/20/17 09:53> Objective - Vital Signs Vital signs: Vital Signs Temp 97.6 F 08/20/17 08:00 Pulse 82 08/20/17 09:00 Resp 22 08/20/17 09:00 BP 112/63 08/20/17 09:00 Pulse Ox 93 L 08/20/17 09:00 Intake & Output 08/19/17 08/20/17 08/20/17 18:59 06:59 18:59 Intake Total 240 390.0 20 Output Total 863 830 75 Balance -623 -440.0 -55 Weight 81.2 kg 83 kg Intake: IV 240 290.0 20 Piperacillin-Tazobactam 3 50.0 .375 gm In Dextrose/Water 1 50ml.bag @ 12.5 mls/hr IVPB Q8HR [facility]ON Rx#: [id number] Sodium Chloride 0.9% 1, 240 240 20 000 ml @ 20 mls/hr IV . Q24H [facility]ON Rx#:[id number] Oral 100 Output: Urine 863 830 75 Other: Voiding Method Indwelling Catheter Indwelling Catheter Indwelling Catheter # Voids 0 # Bowel Movements 1 1 - Labs CBC & Chem 7: 08/20/17 04:28 08/20/17 04:25 Labs: Abnormal Lab Results - Last 24 Hours (Table) 08/19/17 08/19/17 08/19/17 Range/Units 12:23 16:28 17:47 WBC (3.8-10.6) k/uL RBC (4.30-5.90) m/uL Hgb (13.0-17.5) gm/dL Hct (39.0-53.0) % MCV (80.0-100.0) fL Neutrophils # (1.3-7.7) k/uL Lymphocytes # (1.0-4.8) k/uL Sodium (137-145) mmol/L Potassium 3.1 L (3.5-5.1) mmol/L Chloride (98-107) mmol/L BUN (9-20) mg/dL Creatinine (0.66-1.25) mg/dL Glucose (74-99) mg/dL POC Glucose (mg/dL) 234 H 120 H (75-99) mg/dL 08/19/17 08/20/17 08/20/17 Range/Units 20:07 04:25 04:28 WBC 14.5 H (3.8-10.6) k/uL RBC 2.51 L (4.30-5.90) m/uL Hgb 8.1 L (13.0-17.5) gm/dL Hct 26.2 L (39.0-53.0) % MCV 104.4 H (80.0-100.0) fL Neutrophils # 13.1 H (1.3-7.7) k/uL Lymphocytes # 0.8 L (1.0-4.8) k/uL Sodium 135 L (137-145) mmol/L Potassium (3.5-5.1) mmol/L Chloride 96 L (98-107) mmol/L BUN 24 H (9-20) mg/dL Creatinine 0.60 L (0.66-1.25) mg/dL Glucose 124 H (74-99) mg/dL POC Glucose (mg/dL) 168 H (75-99) mg/dL 08/20/17 Range/Units 07:48 WBC (3.8-10.6) k/uL RBC (4.30-5.90) m/uL Hgb (13.0-17.5) gm/dL Hct (39.0-53.0) % MCV (80.0-100.0) fL Neutrophils # (1.3-7.7) k/uL Lymphocytes # (1.0-4.8) k/uL Sodium (137-145) mmol/L Potassium (3.5-5.1) mmol/L Chloride (98-107) mmol/L BUN (9-20) mg/dL Creatinine (0.66-1.25) mg/dL Glucose (74-99) mg/dL POC Glucose (mg/dL) 134 H (75-99) mg/dL Microbiology - Last 24 Hours (Table) 08/16/17 21:20 Blood Culture - Preliminary Blood No Growth after 72 hours 08/18/17 11:20 Urine Culture - Final Urine,Catheterized Assessment and Plan Plan: On 08/20/2017 the patient is being seen in follow-up. Is a joint evaluation was done with the nurse practitioner. I had tested information mentioned above. I also noted that the patient is back on BiPAP at a pressure of 12/5 with an FiO2 of 70% and he failed further weaning. Based on that, I I thought it reasonable to repeat the CAT scan of the chest with contrast to characterize the pulmonary abnormalities decide on the treatment accordingly. I was hoping to see further improvement today knowing that yesterday the patient was able to wean on to high flow oxygen. The diuretics. No hypotension. The patient is tolerating diuretics fairly well. Continue current antibiotic coverage. Proceed with a CAT scan of the chest. Continue bronchodilators and steroids. We'll continue to follow. For the rest of the information please refer to above.
--- NOTE | 2017-08-20 10:46 | P.PN ---
Subjective Patient is currently maintained on BiPAP in the intensive care unit. He still desats when off the BiPAP machine. Objective - Vital Signs Vital signs: Vital Signs Temp 97.6 F 08/20/17 08:00 Pulse 82 08/20/17 09:00 Resp 22 08/20/17 09:00 BP 112/63 08/20/17 09:00 Pulse Ox 93 L 08/20/17 09:00 Intake & Output 08/19/17 08/20/17 08/20/17 18:59 06:59 18:59 Intake Total 240 390.0 20 Output Total 863 830 75 Balance -623 -440.0 -55 Weight 81.2 kg 83 kg Intake: IV 240 290.0 20 Piperacillin-Tazobactam 3 50.0 .375 gm In Dextrose/Water 1 50ml.bag @ 12.5 mls/hr IVPB Q8HR [facility] Rx#: [id number] Sodium Chloride 0.9% 1, 240 240 20 000 ml @ 20 mls/hr IV . Q24H [facility] Rx#:[id number] Oral 100 Output: Urine 863 830 75 Other: Voiding Method Indwelling Catheter Indwelling Catheter Indwelling Catheter # Voids 0 # Bowel Movements 1 1 - Exam General: The patient is awake and alert, in no distress Eye: there is normal conjunctiva bilaterally. Neck: The neck is supple, there is no JVD. Cardiovascular: Normal S1-S2, no S3-S4, no murmurs. Respiratory: Lungs with bibasilar crackles Gastrointestinal: Abdomen is soft, nontender Musculoskeletal: There is no pedal edema. Neurological:. Speech is normal. Skin: Skin is warm and dry - Labs CBC & Chem 7: 08/20/17 04:28 08/20/17 04:25 Labs: Abnormal Lab Results - Last 24 Hours (Table) 08/19/17 08/19/17 08/19/17 Range/Units 12:23 16:28 17:47 WBC (3.8-10.6) k/uL RBC (4.30-5.90) m/uL Hgb (13.0-17.5) gm/dL Hct (39.0-53.0) % MCV (80.0-100.0) fL Neutrophils # (1.3-7.7) k/uL Lymphocytes # (1.0-4.8) k/uL Sodium (137-145) mmol/L Potassium 3.1 L (3.5-5.1) mmol/L Chloride (98-107) mmol/L BUN (9-20) mg/dL Creatinine (0.66-1.25) mg/dL Glucose (74-99) mg/dL POC Glucose (mg/dL) 234 H 120 H (75-99) mg/dL 08/19/17 08/20/17 08/20/17 Range/Units 20:07 04:25 04:28 WBC 14.5 H (3.8-10.6) k/uL RBC 2.51 L (4.30-5.90) m/uL Hgb 8.1 L (13.0-17.5) gm/dL Hct 26.2 L (39.0-53.0) % MCV 104.4 H (80.0-100.0) fL Neutrophils # 13.1 H (1.3-7.7) k/uL Lymphocytes # 0.8 L (1.0-4.8) k/uL Sodium 135 L (137-145) mmol/L Potassium (3.5-5.1) mmol/L Chloride 96 L (98-107) mmol/L BUN 24 H (9-20) mg/dL Creatinine 0.60 L (0.66-1.25) mg/dL Glucose 124 H (74-99) mg/dL POC Glucose (mg/dL) 168 H (75-99) mg/dL 08/20/17 Range/Units 07:48 WBC (3.8-10.6) k/uL RBC (4.30-5.90) m/uL Hgb (13.0-17.5) gm/dL Hct (39.0-53.0) % MCV (80.0-100.0) fL Neutrophils # (1.3-7.7) k/uL Lymphocytes # (1.0-4.8) k/uL Sodium (137-145) mmol/L Potassium (3.5-5.1) mmol/L Chloride (98-107) mmol/L BUN (9-20) mg/dL Creatinine (0.66-1.25) mg/dL Glucose (74-99) mg/dL POC Glucose (mg/dL) 134 H (75-99) mg/dL Microbiology - Last 24 Hours (Table) 08/16/17 21:20 Blood Culture - Preliminary Blood No Growth after 72 hours 08/18/17 11:20 Urine Culture - Final Urine,Catheterized Assessment and Plan Plan: 1. Progressive dyspnea with suspected healthcare acquired pneumonia 2. Diastolic heart failure exacerbation with pulmonary edema 3. Coronary artery disease with prior stent placement 4. Chronic orthostatic hypotension 5. Obstructive sleep apnea 6. Acute hypoxic respiratory failure Today, I reviewed his medication list and lab work results. Wean off O2 as tolerated for O2 sats above 90%. Appreciate senior management consultant's recommendations. Computed tomography scan of the chest as ordered by pulmonology. Continue current regimen. Patient prognosis is guarded. No family members at bedside to be updated. I will continue to follow up on him closely.
--- NOTE | 2017-08-20 11:03 | PN ---
PROGRESS NOTE Mr. García is an 87-year-old male with a known history of coronary disease, history asbestosis, hyperlipidemia, who presented with progressive symptoms of dyspnea and cough. He became more dyspneic yesterday. He is back on his BiPAP, although he is feeling better today. He denies any chest pain. Hemodynamically stable. He has not had any tachy or liudmila arrhythmia. He has no nausea or vomiting. He has continued to be at this time on Lasix 40 mg IV twice a day, aspirin once a day, Lipitor 80 mg daily, Lovenox, Florinef 0.2 mg daily, midodrine. PHYSICAL EXAMINATION: Blood pressure 112/60 with a heart in the 80s. LUNGS: No wheezes. HEART: Irregular regular, S1, S2. No S3. No rub appreciated. ABDOMEN: Soft and nontender. EXTREMITIES: No edema. LAB DATA: Revealed a white blood cell of 14.5, a hemoglobin of 8.1, BUN and creatinine 24.6, potassium 3.5. IMPRESSION: 1. Pneumonia with respiratory failure. 2. History of coronary disease, stable. 3. History of asbestosis. RECOMMENDATION: From the cardiac standpoint, we will continue medical therapy and continue on the BiPAP. Hopefully, we will have an improvement in his lung status and that the BiPAP can be removed. If he is stable I would expect we should be able to switch him to oral diuretics in the next 24 hours. MMODL / OSITON: [id number] /
[2017-08-20 12:16] LABS: Glucose,Whole Blood 110 mg/dL (75-99)
[2017-08-20] MEDS: ACETAMINOPHEN TAB 325 MG TAB PO PRN (13:52)
--- NOTE | 2017-08-20 16:05 | CT ---
EXAMINATION TYPE: CT chest w con DATE OF EXAM: 08/20/2017 COMPARISON: Chest radiograph dated 08/20/[address] chest dated 03/26/2011 HISTORY: shortness of breath CT DLP: 346.4 mGycm. Automated Exposure Control for Dose Reduction was Utilized. TECHNIQUE: CT scan of the thorax is performed following with IV Contrast, patient injected with 100 mL of Omnipaque 300. FINDINGS: LUNGS: Lobulated soft tissue attenuated 3.3 x 3.8 x 3.6 cm superior segment right lower lobe pulmonary mass is identified superimposed upon geographic areas of groundglass opacity, reticular nodular airspace d isease with air bronchograms in the upper lobes, right greater than left, and centrilobular emphysema tous changes. Few areas of peripheral basilar honeycombing is seen at the lung bases suggesting under lying pulmonary fibrosis as well as known bilateral calcified pleural plaques, left greater than righ t that appears similar to the prior examination of 03/26/2011. The tracheobronchial tree is patent. Sm all right pleural effusion also resides within the interlobar fissure. Cylindrical type bronchiectasi s is present in the lower lungs. MEDIASTINUM: The heart is enlarged with severe three-vessel coronary artery calcifications and pleura l plaquing along the left mediastinal border. No evidence of axillary adenopathy. Few nonenlarged med iastinal lymph nodes are seen with mildly enlarged right hilar conglomeration of lymph nodes measurin g 1.1 x 1.3 cm and prominent subcarinal lymph node measuring 1.0 cm in short axis. OTHER: No multilevel degenerative change of the thoracic spine is noted with superior endplate and i nferior endplate deformity of a lower thoracic vertebra representing Schmorl's nodes. IMPRESSION: 1. New superior segment right lower lobe pulmonary mass that should be considered pulmonary neoplasm until proven otherwise. 2. New reticular nodular biapical airspace disease with air bronchograms suspicious for multifocal pn eumonia. 3. Diffuse areas of geographic groundglass opacity that may also represent infectious/inflammatory pn eumonitis but also may represent a component of fluid volume overload. 4. Findings of interstitial fibrosis and bilateral calcific pleural thickening related to the known p rior asbestos exposure. 5. Small right pleural effusion with loculated intrafissural fluid also noted. 6. Right hilar adenopathy and prominent mediastinal lymph nodes without enlargement.
[2017-08-20] MEDS: SODIUM CHLORIDE 0.9% 1,000 ML IV SCH (17:05)
[2017-08-20 17:22] LABS: Glucose,Whole Blood 116 mg/dL (75-99)
[2017-08-20] MEDS: TAMSULOSIN 0.4 MG CAP.ER.24H PO SCH (18:16)
[2017-08-20] MEDS: BUDESONIDE 1 MG/2 ML NEBU INHALATION SCH (19:04)
[2017-08-20] MEDS: SERTRALINE 50 MG TAB PO SCH (20:56)
[2017-08-20] MEDS: ATORVASTATIN 80 MG TAB PO SCH (20:56)
[2017-08-20 20:57] LABS: Glucose,Whole Blood 184 mg/dL (75-99)
[2017-08-21 04:48] LABS: Basophils % (A) 0 %; CH 33.5; CHCM 31.8; Eosinophils % (A) 0 %; HCT 28.8 % (39.0-53.0); HDW 3.37; HGB 8.9 gm/dL (13.0-17.5); Hypochromasia Moderate; Luc # (Auto) 0.07; Luc % (Auto) 1; Lymphocytes # (A) 0.7 k/uL (1.0-4.8); Lymphocytes % (A) 6 %; MCH 32.5 pg (25.0-35.0); MCHC 30.8 g/dL (31.0-37.0); MCV 105.6 fL (80.0-100.0); Macrocytosis Moderate; Mean Platelet Volume 7.6; Monocytes # (A) 0.4 k/uL (0-1.0); Monocytes % (A) 3 %; Neutrophils # (A) 9.8 k/uL (1.3-7.7); Neutrophils % (A) 90 %; RBC 2.73 m/uL (4.30-5.90); WBC 10.9 k/uL (3.8-10.6); WBC (Perox) 11.32
[2017-08-21 04:57] LABS: Anion Gap 11 mmol/L; Blood Urea Nitrogen 22 mg/dL (9-20); Calcium 8.5 mg/dL (8.4-10.2); Carbon Dioxide 30 mmol/L (22-30); Chloride 97 mmol/L (98-107); Glucose 128 mg/dL (74-99); Magnesium 2.5 mg/dL (1.6-2.3); Non-African American GFR(MDRD) >60 (>60 ml/min/1.73 sqM); Phosphorus 3.3 mg/dL (2.5-4.5); Potassium 3.9 mmol/L (3.5-5.1); Sodium 138 mmol/L (137-145)
[2017-08-21] MEDS: POTASSIUM CHLORIDE 10 MEQ in WATER FOR INJECTION 1 100ML.BAG IVPB SCH ×2 (06:30→07:54)
[2017-08-21] MEDS: BUDESONIDE 1 MG/2 ML NEBU INHALATION SCH ×2 (07:32→19:43)
[2017-08-21] MEDS: IPRATROPIUM-ALBUTEROL 3 ML NEB INHALATION SCH ×4 (07:32→19:43)
[2017-08-21 07:36] LABS: Glucose,Whole Blood 116 mg/dL (75-99)
[2017-08-21] MEDS: INSULIN LISPRO (humaLOG) 300 UNIT/3 ML VIAL SQ SCH ×4 (07:55→20:52)
[2017-08-21] MEDS: MIDODRINE 5 MG TAB PO SCH ×3 (07:55→17:22)
[2017-08-21] MEDS: FUROSEMIDE 10 MG/ML 4 ML VIAL IV SCH (08:36)
[2017-08-21] MEDS: PIPERACILLIN-TAZOBACTAM 3.375 GM in DEXTROSE/WATER 1 50ML.BAG IVPB SCH (08:39)
[2017-08-21] MEDS: POLYETHYLENE GLYCOL 3350 17 GM POWD.PACK PO SCH (08:58)
[2017-08-21] MEDS: LEVOFLOXACIN 750 MG TAB PO SCH (08:58)
[2017-08-21] MEDS: TIMOLOL 0.5% OPHTH DROPS 5 ML BTL BOTH EYES SCH (08:58)
[2017-08-21] MEDS: PANTOPRAZOLE 40 MG/10 ML VIAL IV SCH (08:58)
[2017-08-21] MEDS: ENOXAPARIN 40 MG/0.4 ML SYRINGE SQ SCH (08:58)
[2017-08-21] MEDS: ASPIRIN 81 MG PO SCH (08:58)
[2017-08-21] MEDS: FLUDROCORTISONE 0.1 MG TAB PO SCH (08:58)
[2017-08-21] MEDS: methylPREDNISolone SOD SUCCI 40 MG/ML 1 ML VIAL IV SCH ×3 (08:58→23:43)
[2017-08-21] MEDS: SENNOSIDES-DOCUSATE SODIUM 1 EACH TAB PO SCH ×2 (09:06→20:38)
--- NOTE | 2017-08-21 09:44 | P.PN ---
<Maria Victoria,Liz - Last Filed: 08/21/17 09:32> Subjective Progress Note Date: 08/21/17 Principal diagnosis: Acute hypoxic respiratory failure secondary to diffuse bilateral pulmonary infiltrates. This is an 87-year-old male patient was referred to us from [facility] because of worsening shortness of breath. The patient was on ECF where he was undergoing rehabilitation for shortness of breath and dizziness. He has history of asbestosis with extensive bilateral pleural calcification as evident on previous chest x-rays. Based on his worsening shortness of breath, a CAT scan of the chest was done and it showed bilateral pleural effusion, interstitial edema, a questionable 4 cm right lower lobe mass and extensive bilateral pleural calcification typical of an underlying asbestosis. No significant cough or sputum production. No fever chills or night sweats. The patient was transferred here and I reviewed the CAT scan of the chest. Troponins were minimally elevated and troponin maxed is at 0.3 and 0.7. Echocardiogram from July of this year showed an ejection fraction of 55-60 % with mild TR, mild MR and mild pulmonary hypertension. He has history of coronary artery disease, hyperlipidemia and osteoarthritis along with glaucoma and depression. He has had previous cardiac stents placed. He is known to have coronary artery disease .Note that the patient was in the hospital on 07/28 for a total right knee arthroplasty. The procedure was performed without any complications. Postop the patient had a fall and he had orthostatic hypotension and urinary retention. He had an echocardiogram that showed no significant abnormalities. Doppler of the lower extremity was also negative. He was started on Florinef. He was ultimately sent to [facility] for rehabilitation. On 08/18/2017 I'm seeing this patient for a follow-up. I can't understand that overnight the patient's condition decompensated. He became progressively more hypoxic. Based on that he was placed on a BiPAP at a pressure of 12/5 cm of water and FiO2 of 80%. His current pulse ox is barely above 90%. He is short of breath. I reviewed the chest x-ray from today and there is a dense consolidation of the right upper lobe in addition to extensive background fibrosis and asbestosis with significant pleural calcification. The patient is still short of breath and he is having some limited shortness of breath even at rest. He has a congested cough. Unable to bring up much sputum. His blood culture been negative thus far. His white cell count is elevated at 14.4. Hemoglobin stable at 8.3. He is covered with broad-spectrum antibiotics and he is coming on a combination of Zosyn and Levaquin. Is being diuresis gently with Lasix 40 mg IV push every 12 hours. He is also on bronchodilators with DuoNeb the last treatment [id number]. He'll be transferred to the intensive care unit. He'll be started also on some systemic steroids. On 08/19/2017 I'm seeing this patient in follow-up. The patient is feeling much better. He is less short of breath. This morning he was taken off the BiPAP and is currently on high flow oxygen at 15 L and saturations around 97%. I'm in the process of weaning down the FiO2 down to 12% and down to 10%. Chest x-ray from today shows and it shows multifocal airspace disease/infiltrates with improved aeration of the left upper lobe. There is also an opacity in the right lung base which is probably a pseudotumor. His underlying interstitial fibrosis and asbestosis. The patient is having an coding advisor breakfast today. No nausea. No vomiting. No abdominal pain. No hypotension. No drop in urine output. He remains on a combination of Levaquin and Zosyn as broad- spectrum antibiotic coverage. The latency count is stable at 11.8. No other significant events overnight. The patient is seen again today 08/20/2017 in follow-up in the intensive care unit. He is awake and alert in no acute distress. His chest x-ray shows improved aeration bilaterally. Unfortunately, the patient still requires BiPAP support with an increase in the IPAP of 12 and EPAP of 5. He remains on 70% FiO2 to maintain O2 saturations in the 90s. He was placed on 15 L high flow nasal cannula for breakfast and desaturated fairly quickly into the 80s. He is currently comfortable again on BiPAP. He remains on DuoNeb inhalations 4 times a day and when necessary, IV Lasix, IV Solu-Medrol, antibiotics in the form of Zosyn and Levaquin. White count 14.5. Hemoglobin 8.1. Creatinine remains stable at 0.60. The patient is seen again today 08/21/2017 in follow-up in the intensive care unit. He is currently on the AirVo device at 60 per flow and 80% FiO2. He is maintaining O2 saturations in the mid 90s currently. He is awake and alert in no acute distress. His CAT scan continues to show evidence of groundglass appearance in the bases there is also a right lower lobe and the superior segment noted ovulated soft tissue mass measuring 3.3 x 3.8 x 3.6 cm. There is diffuse areas of groundglass opacities suspect continued infectious/ inflammatory pneumonitis. 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 He is a small right pleural effusion. There is right hilar adenopathy and prominent mediastinal lymph nodes without enlargement. Blood cultures reveal no growth. Urine culture reveals no growth. White count 10.9. Hemoglobin 8.9. Creatinine 0.70. He remains on Zosyn and Levaquin currently. No sputum sample obtained yet. He remains on Lasix 40 mg IV daily, IV Solu-Medrol 40 mg IV every 12 hours, bronchodilators every 4 hours, Pulmicort inhalations twice a day. Objective - Vital Signs Vital signs: Vital Signs Temp 97.9 F 08/21/17 08:00 Pulse 78 08/21/17 08:00 Resp 34 H 08/21/17 08:00 BP 108/53 08/21/17 08:00 Pulse Ox 95 08/21/17 08:00 Intake & Output 08/20/17 08/21/17 08/21/17 18:59 06:59 18:59 Intake Total 425.0 482.5 450 Output Total 1767 575 115 Balance -1342.0 -92.5 335 Weight 85 kg Intake: IV 175.0 282.5 200 Piperacillin-Tazobactam 3 75.0 62.5 .375 gm In Dextrose/Water 1 50ml.bag @ 12.5 mls/hr IVPB Q8HR [facility] Rx#: [id number] Potassium Chloride 10 meq 200 In Water For Injection 1 100ml.bag @ 100 mls/hr IVPB Q1H [facility] Rx#: [id number] Sodium Chloride 0.9% 1, 100 220 0 000 ml @ 20 mls/hr IV . Q24H [facility] Rx#:[id number] Oral 250 200 250 Output: Urine 1767 575 115 Other: Voiding Method Indwelling Catheter Indwelling Catheter # Voids 0 # Bowel Movements 1 - Exam Elderly, nonacute distress, currently on high flow oxygen, not using accessory muscles of breathing.Head exam was generally normal. There was no scleral icterus or corneal arcus. Mucous membranes were moist.Neck was supple and without jugular venous distension, thyromegaly, or carotid bruits. Carotids were easily palpable bilaterally. There was no adenopathy. Poor dentition. Lung sounds are diminished in lung bases along with coarse crackles heard throughout the lung walters bilaterally especially in the lung bases.Cardiac exam revealed the PMI to be normally situated and sized. The rhythm was regular and no extrasystoles were noted during several minutes of auscultation. The first and second heart sounds were normal and physiologic splitting of the second heart sound was noted. There were no murmurs, rubs, clicks, or gallops.Abdominal exam revealed normal bowel sounds. The abdomen was soft, non- tender, and without masses, organomegaly, or appreciable enlargement of the abdominal aorta. Extremities show a healed wound over the right knee and there is no edema or swelling.Examination of the skin revealed no evidence of significant rashes, suspicious appearing nevi or other concerning lesions. Neurologically is awake and alert and following commands and moving all 4 extremities without any limitation skeletal shows no active arthritis or joint deformities. - Labs CBC & Chem 7: 08/21/17 04:25 08/21/17 04:22 Labs: Abnormal Lab Results - Last 24 Hours (Table) 08/20/17 08/20/17 08/20/17 Range/Units 12:13 17:20 20:53 WBC (3.8-10.6) k/uL RBC (4.30-5.90) m/uL Hgb (13.0-17.5) gm/dL Hct (39.0-53.0) % MCV (80.0-100.0) fL MCHC (31.0-37.0) g/dL RDW (11.5-15.5) % Neutrophils # (1.3-7.7) k/uL Lymphocytes # (1.0-4.8) k/uL Chloride (98-107) mmol/L BUN (9-20) mg/dL Glucose (74-99) mg/dL POC Glucose (mg/dL) 110 H 116 H 184 H (75-99) mg/dL Magnesium (1.6-2.3) mg/dL 08/21/17 08/21/17 08/21/17 Range/Units 04:22 04:25 07:34 WBC 10.9 H (3.8-10.6) k/uL RBC 2.73 L (4.30-5.90) m/uL Hgb 8.9 L (13.0-17.5) gm/dL Hct 28.8 L (39.0-53.0) % MCV 105.6 H (80.0-100.0) fL MCHC 30.8 L (31.0-37.0) g/dL RDW 16.0 H (11.5-15.5) % Neutrophils # 9.8 H (1.3-7.7) k/uL Lymphocytes # 0.7 L (1.0-4.8) k/uL Chloride 97 L (98-107) mmol/L BUN 22 H (9-20) mg/dL Glucose 128 H (74-99) mg/dL POC Glucose (mg/dL) 116 H (75-99) mg/dL Magnesium 2.5 H (1.6-2.3) mg/dL Microbiology - Last 24 Hours (Table) 08/16/17 21:20 Blood Culture - Preliminary Blood No Growth after 96 hours Assessment and Plan Plan: Assessment 1 acute hypoxic respiratory failure with diffuse bilateral pulmonary infiltrates and a dense consolidation of the right lower lobe giving a pseudotumor appearance. The findings are highly suspicious for pneumonia. Underlying diastolic CHF and fluid overload cannot be completely excluded. Note that the findings are a bit somewhat hard to characterize knowing that the patient is extensive asbestosis in the background. On 08/18/2017, the patient's respiratory status has decompensated. He has become progressively more hypoxic. The patient will be moved to the intensive care unit. Currently is BiPAP dependent. On 08/19/2017 the patient is more stable currently I off BiPAP and the patient is on high flow oxygen in the process of being weaned on his FiO2. Chest x-ray shows some limited improvement in aeration of the left upper lobe and there is still right upper lobe consolidation and background asbestosis with interstitial fibrosis. Nevertheless he is less short of breath and less tachypneic compared to yesterday. Cultures of been all negative. He still on examination Zosyn and Levaquin. On 08/20/2017 the patient continues to require high FiO2 to maintain O2 saturations in the 90s. Currently on BiPAP at 12/5 and 70% FiO2. He did desaturate into the 80s on 15 L of high flow nasal cannula while having breakfast this morning. He is continued on IV Zosyn, Levaquin, IV diuretics, IV Solu-Medrol, bronchodilators. We'll add Pulmicort inhalations. On 08/21/2017 the patient is currently on the AirVo high flow oxygen device at 60 and a FiO2 of 80%. He is maintaining good O2 saturations in the mid 90s currently. His computed tomography scan was reviewed. There is slight improvement in the ground glass opacities in the upper lobes. There continues with groundglass at the bases. Most likely ongoing pneumonia/pneumonitis with bronchiectasis and interstitial edema. There is also a lobulated soft tissue mass measuring 3.3 x 3.8 x 3.6 cm in the superior segment of the right lower lobe. 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 2 asbestosis, by history with extensive pleural calcifications and fibrosis 3 coronary artery disease with abnormal troponin consistent with acute non-ST segment elevation myocardial infarction 4 preserved LV function with normal ejection fraction 5 obstructive sleep apnea maintained on CPAP therapy on outpatient basis 7 hyperlipidemia 8 osteoarthritis 9 recent right knee arthroplasty 10 BPH 11 acute non-ST segment elevation myocardial infarction with a troponin max of 1.8. PLAN: The patient was seen and evaluated by Dr. Davis. His CAT scan and labs were reviewed. We'll discontinue the Zosyn and add Merrem to go along with the Levaquin. We will increase his Lasix to 40 mg IV push every 12 hours. We'll continue with the bronchodilators, IV Solu-Medrol, Pulmicort inhalations. He remains on Lovenox for DVT prophylaxis. Protonix for GI prophylaxis. The patient does continue to require high FiO2 to maintain O2 saturations in the 90s. We will continue to monitor him here closely in the intensive care unit. We will repeat his chest x-ray and labs in the a.m. We will continue to follow. I performed a history and physical examination on this patient. His lungs have improved in aeration in the upper lobe lobes. He continues with bibasilar crackles in the bases with scattered rhonchi. Diminished. He does continue to require 80% FiO2 to maintain O2 saturations in the mid 90s. I reviewed and discussed the assessment and plan of care with my nurse practitioner Liz Irene. I agree with the above note as dictated by her. <John Davis - Last Filed: 08/21/17 10:05> Objective - Vital Signs Vital signs: Vital Signs Temp 97.9 F 08/21/17 08:00 Pulse 96 08/21/17 09:00 Resp 33 H 08/21/17 09:00 BP 112/66 08/21/17 09:00 Pulse Ox 94 L 08/21/17 09:00 Intake & Output 08/20/17 08/21/17 08/21/17 18:59 06:59 18:59 Intake Total 425.0 482.5 562.5 Output Total 1767 575 565 Balance -1342.0 -92.5 -2.5 Weight 85 kg Intake: IV 175.0 282.5 312.5 Piperacillin-Tazobactam 3 75.0 62.5 12.5 .375 gm In Dextrose/Water 1 50ml.bag @ 12.5 mls/hr IVPB Q8HR [facility] Rx#: [id number] Potassium Chloride 10 meq 300 In Water For Injection 1 100ml.bag @ 100 mls/hr IVPB Q1H [facility] Rx#: [id number] Sodium Chloride 0.9% 1, 100 220 0 000 ml @ 20 mls/hr IV . Q24H [facility] Rx#:[id number] Oral 250 200 250 Output: Urine 1767 575 565 Other: Voiding Method Indwelling Catheter Indwelling Catheter Indwelling Catheter # Voids 0 # Bowel Movements 1 - Labs CBC & Chem 7: 08/21/17 04:25 08/21/17 04:22 Labs: Abnormal Lab Results - Last 24 Hours (Table) 08/20/17 08/20/17 08/20/17 Range/Units 12: 17:20 20:53 WBC (3.8-10.6) k/uL RBC (4.30-5.90) m/uL Hgb (13.0-17.5) gm/dL Hct (39.0-53.0) % MCV (80.0-100.0) fL MCHC (31.0-37.0) g/dL RDW (11.5-15.5) % Neutrophils # (1.3-7.7) k/uL Lymphocytes # (1.0-4.8) k/uL Chloride (98-107) mmol/L BUN (9-20) mg/dL Glucose (74-99) mg/dL POC Glucose (mg/dL) 110 H 116 H 184 H (75-99) mg/dL Magnesium (1.6-2.3) mg/dL 08/21/17 08/21/17 08/21/17 Range/Units 04:22 04:25 07:34 WBC 10.9 H (3.8-10.6) k/uL RBC 2.73 L (4.30-5.90) m/uL Hgb 8.9 L (13.0-17.5) gm/dL Hct 28.8 L (39.0-53.0) % MCV 105.6 H (80.0-100.0) fL MCHC 30.8 L (31.0-37.0) g/dL RDW 16.0 H (11.5-15.5) % Neutrophils # 9.8 H (1.3-7.7) k/uL Lymphocytes # 0.7 L (1.0-4.8) k/uL Chloride 97 L (98-107) mmol/L BUN 22 H (9-20) mg/dL Glucose 128 H (74-99) mg/dL POC Glucose (mg/dL) 116 H (75-99) mg/dL Magnesium 2.5 H (1.6-2.3) mg/dL Microbiology - Last 24 Hours (Table) 08/16/17 21:20 Blood Culture - Preliminary Blood No Growth after 96 hours Assessment and Plan Plan: I am doing this joint evaluation along with a nurse practitioner. I agree on the information mentioned above. I reviewed the CAT scan of the chest. There is some improvement in the groundglass changes in the upper lobes bilaterally. There is however a consolidation in the right upper lobe still along with some ongoing consolidation of lung bases bilaterally. There is also a mass in the right lower lobe which could be potentially cancerous lesion versus a pseudotumor. In any rate, based on the patient's ongoing acute respiratory failure, the lung mass will be kept without any further workup knowing that the patient will not be able to handle any further diagnostic procedures at this point. Meanwhile, we'll broaden the antibiotic coverage. I will drop to Zosyn. I will put the patient on a combination of Merrem and Levaquin. We will increase the Lasix dose to 40 mg every 12 hours. The patient is been ordered switched to high flow oxygen at 60 L/m. He is able to tolerate the high flow without any major difficulties. We'll continue to follow. Use BiPAP as needed for respiratory support. Condition remains critical. We'll continue to follow. He'll be kept in ICU for another 24 hours. I
[2017-08-21] MEDS: MEROPENEM 2 GM in SODIUM CHLORIDE 0.9% 100 ML IVPB SCH ×2 (10:52→16:21)
--- NOTE | 2017-08-21 12:03 | P.PN ---
Subjective Patient remained on high flow oxygen. He was confused last night with symptoms of sundowning. He is awake and cooperative today. Objective - Vital Signs Vital signs: Vital Signs Temp 97.9 F 08/21/17 08:00 Pulse 89 08/21/17 11:00 Resp 30 H 08/21/17 11:00 BP 95/53 08/21/17 11:00 Pulse Ox 93 L 08/21/17 11:00 Intake & Output 08/20/17 08/21/17 08/21/17 18:59 06:59 18:59 Intake Total 425.0 482.5 687.5 Output Total 1767 575 965 Balance -1342.0 -92.5 -277.5 Weight 85 kg Intake: IV 175.0 282.5 437.5 Meropenem 2 gm In Sodium 100 Chloride 0.9% 100 ml @ 200 mls/hr IVPB Q8HR [facility] Rx#:[id number] Piperacillin-Tazobactam 3 75.0 62.5 37.5 .375 gm In Dextrose/Water 1 50ml.bag @ 12.5 mls/hr IVPB Q8HR [facility] Rx#: [id number] Potassium Chloride 10 meq 300 In Water For Injection 1 100ml.bag @ 100 mls/hr IVPB Q1H [facility] Rx#: [id number] Sodium Chloride 0.9% 1, 100 220 0 000 ml @ 20 mls/hr IV . Q24H [facility] Rx#:[id number] Oral 250 200 250 Output: Urine 1767 575 965 Other: Voiding Method Indwelling Catheter Indwelling Catheter Indwelling Catheter # Voids 0 # Bowel Movements 1 - Exam General: The patient is awake and alert, in no distress Eye: there is normal conjunctiva bilaterally. Neck: The neck is supple, there is no JVD. Cardiovascular: Normal S1-S2, no S3-S4, no murmurs. Respiratory: Lungs with bibasilar crackles Gastrointestinal: Abdomen is soft, nontender Musculoskeletal: There is no pedal edema. Neurological:. Speech is normal. Skin: Skin is warm and dry - Labs CBC & Chem 7: 08/21/17 04:25 08/21/17 04:22 Labs: Abnormal Lab Results - Last 24 Hours (Table) 08/20/17 08/20/17 08/20/17 Range/Units 12:13 17:20 20:53 WBC (3.8-10.6) k/uL RBC (4.30-5.90) m/uL Hgb (13.0-17.5) gm/dL Hct (39.0-53.0) % MCV (80.0-100.0) fL MCHC (31.0-37.0) g/dL RDW (11.5-15.5) % Neutrophils # (1.3-7.7) k/uL Lymphocytes # (1.0-4.8) k/uL Chloride (98-107) mmol/L BUN (9-20) mg/dL Glucose (74-99) mg/dL POC Glucose (mg/dL) 110 H 116 H 184 H (75-99) mg/dL Magnesium (1.6-2.3) mg/dL 08/21/17 08/21/17 08/21/17 Range/Units 04:22 04:25 07:34 WBC 10.9 H (3.8-10.6) k/uL RBC 2.73 L (4.30-5.90) m/uL Hgb 8.9 L (13.0-17.5) gm/dL Hct 28.8 L (39.0-53.0) % MCV 105.6 H (80.0-100.0) fL MCHC 30.8 L (31.0-37.0) g/dL RDW 16.0 H (11.5-15.5) % Neutrophils # 9.8 H (1.3-7.7) k/uL Lymphocytes # 0.7 L (1.0-4.8) k/uL Chloride 97 L (98-107) mmol/L BUN 22 H (9-20) mg/dL Glucose 128 H (74-99) mg/dL POC Glucose (mg/dL) 116 H (75-99) mg/dL Magnesium 2.5 H (1.6-2.3) mg/dL Microbiology - Last 24 Hours (Table) 08/16/17 21:20 Blood Culture - Preliminary Blood No Growth after 96 hours Assessment and Plan Plan: 1. Progressive dyspnea with suspected healthcare acquired pneumonia 2. Diastolic heart failure exacerbation with pulmonary edema 3. Coronary artery disease with prior stent placement 4. Chronic orthostatic hypotension 5. Obstructive sleep apnea 6. Acute hypoxic respiratory failure 7. Suspected right upper lobe lung mass: We will need further investigation when patient is more stable clinically 8. Underlying pneumonia, antibiotic management by pulmonology currently on Merrem Today, I reviewed his medication list and lab work results. Wean off O2 as tolerated for O2 sats above 90%. Appreciate outbound sales consultant's recommendations. Computed tomography scan of the chest as ordered by pulmonology. Continue current regimen. Patient prognosis is guarded. No family members at bedside to be updated. I will continue to follow up on him closely.
[2017-08-21 12:29] LABS: Glucose,Whole Blood 124 mg/dL (75-99)
[2017-08-21] MEDS: SODIUM CHLORIDE 0.9% 1,000 ML IV SCH (16:22)
[2017-08-21 16:59] LABS: Glucose,Whole Blood 146 mg/dL (75-99)
--- NOTE | 2017-08-21 17:08 | PN ---
PROGRESS NOTE Mr. García is an 87-year-old gentleman who was transferred to the intensive care unit because of respiratory distress. Patient is currently being maintained on high-flow oxygen with 80% FiO2. Patient's CT scan shows evidence of ground-glass appearance in the bases with a suggestion of consolidation and pneumonia. Patient's blood culture so far revealed no growth. The patient is not in any acute respiratory distress. The blood pressure is 108/53 mmHg. Respiratory rate is 30. First and second heart sounds are normal. Lungs reveal bilateral diminished air entry. FINAL IMPRESSION: This patient has respiratory distress secondary to bilateral airspace disease and pneumonia. Underlying mild diastolic heart failure cannot be entirely excluded. Continue current treatment. MMODL / IJN: [id number] /
[2017-08-21] MEDS: TAMSULOSIN 0.4 MG CAP.ER.24H PO SCH (18:11)
[2017-08-21] MEDS: ATORVASTATIN 80 MG TAB PO SCH (20:36)
[2017-08-21] MEDS: SERTRALINE 50 MG TAB PO SCH (20:37)
[2017-08-21 20:42] LABS: Glucose,Whole Blood 124 mg/dL (75-99)
[2017-08-21] MEDS ORDERED: FUROSEMIDE 10 MG/ML 4 ML VIAL IV SCH (21:00)
[2017-08-21] MEDS ORDERED: HALOPERIDOL LACTATE 5 MG/ML 1 ML VIAL IVP PRN (23:32)
[2017-08-22] MEDS: MEROPENEM 2 GM in SODIUM CHLORIDE 0.9% 100 ML IVPB SCH ×4 (00:50→23:33)
[2017-08-22] MEDS ORDERED: POTASSIUM CHLORIDE ER 20 MEQ TAB.ER PO SCH (01:00)
[2017-08-22 04:38] LABS: Anisocytosis Slight; Basophils % (A) 0 %; CH 33.2; CHCM 32.2; Eosinophils % (A) 0 %; HCT 30.1 % (39.0-53.0); HDW 3.32; HGB 9.3 gm/dL (13.0-17.5); Hypochromasia Slight; Luc # (Auto) 0.07; Luc % (Auto) 1; Lymphocytes # (A) 0.8 k/uL (1.0-4.8); Lymphocytes % (A) 6 %; MCV 103.4 fL (80.0-100.0); Macrocytosis Moderate; Mean Platelet Volume 7.6; Monocytes # (A) 0.3 k/uL (0-1.0); Monocytes % (A) 2 %; Neutrophils # (A) 11.8 k/uL (1.3-7.7); Neutrophils % (A) 91 %; RBC 2.91 m/uL (4.30-5.90); RDW 16.4 % (11.5-15.5); WBC (Perox) 13.94
[2017-08-22 04:52] LABS: Anion Gap 9 mmol/L; Blood Urea Nitrogen 22 mg/dL (9-20); Calcium 8.6 mg/dL (8.4-10.2); Carbon Dioxide 33 mmol/L (22-30); Chloride 95 mmol/L (98-107); Glucose 113 mg/dL (74-99); Magnesium 2.5 mg/dL (1.6-2.3); Non-African American GFR(MDRD) >60 (>60 ml/min/1.73 sqM); Phosphorus 3.8 mg/dL (2.5-4.5); Potassium 4.2 mmol/L (3.5-5.1); Sodium 137 mmol/L (137-145)
[2017-08-22 07:04] LABS: Glucose,Whole Blood 114 mg/dL (75-99)
--- NOTE | 2017-08-22 07:33 | P.PN ---
Subjective Progress Note Date: 08/22/17 Acute hypoxic respiratory failure secondary to diffuse bilateral pulmonary infiltrates. This is an 87-year-old male patient was referred to us from [facility] because of worsening shortness of breath. The patient was on ECF where he was undergoing rehabilitation for shortness of breath and dizziness. He has history of asbestosis with extensive bilateral pleural calcification as evident on previous chest x-rays. Based on his worsening shortness of breath, a CAT scan of the chest was done and it showed bilateral pleural effusion, interstitial edema, a questionable 4 cm right lower lobe mass and extensive bilateral pleural calcification typical of an underlying asbestosis. No significant cough or sputum production. No fever chills or night sweats. The patient was transferred here and I reviewed the CAT scan of the chest. Troponins were minimally elevated and troponin maxed is at 0.3 and 0.7. Echocardiogram from July of this year showed an ejection fraction of 55-60 % with mild TR, mild MR and mild pulmonary hypertension. He has history of coronary artery disease, hyperlipidemia and osteoarthritis along with glaucoma and depression. He has had previous cardiac stents placed. He is known to have coronary artery disease .Note that the patient was in the hospital on 07/28 for a total right knee arthroplasty. The procedure was performed without any complications. Postop the patient had a fall and he had orthostatic hypotension and urinary retention. He had an echocardiogram that showed no significant abnormalities. Doppler of the lower extremity was also negative. He was started on Florinef. He was ultimately sent to [facility] for rehabilitation. On 08/18/2017 I'm seeing this patient for a follow-up. I can't understand that overnight the patient's condition decompensated. He became progressively more hypoxic. Based on that he was placed on a BiPAP at a pressure of 12/5 cm of water and FiO2 of 80%. His current pulse ox is barely above 90%. He is short of breath. I reviewed the chest x-ray from today and there is a dense consolidation of the right upper lobe in addition to extensive background fibrosis and asbestosis with significant pleural calcification. The patient is still short of breath and he is having some limited shortness of breath even at rest. He has a congested cough. Unable to bring up much sputum. His blood culture been negative thus far. His white cell count is elevated at 14.4. Hemoglobin stable at 8.3. He is covered with broad-spectrum antibiotics and he is coming on a combination of Zosyn and Levaquin. Is being diuresis gently with Lasix 40 mg IV push every 12 hours. He is also on bronchodilators with DuoNeb the last treatment [id number]. He'll be transferred to the intensive care unit. He'll be started also on some systemic steroids. On 08/19/2017 I'm seeing this patient in follow-up. The patient is feeling much better. He is less short of breath. This morning he was taken off the BiPAP and is currently on high flow oxygen at 15 L and saturations around 97%. I'm in the process of weaning down the FiO2 down to 12% and down to 10%. Chest x-ray from today shows and it shows multifocal airspace disease/infiltrates with improved aeration of the left upper lobe. There is also an opacity in the right lung base which is probably a pseudotumor. His underlying interstitial fibrosis and asbestosis. 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 No nausea. No vomiting. No abdominal pain. No hypotension. No drop in urine output. He remains on a combination of Levaquin and Zosyn as broad- spectrum antibiotic coverage. The latency count is stable at 11.8. No other significant events overnight. The patient is seen again today 08/20/2017 in follow-up in the intensive care unit. He is awake and alert in no acute distress. His chest x-ray shows improved aeration bilaterally. Unfortunately, the patient still requires BiPAP support with an increase in the IPAP of 12 and EPAP of 5. He remains on 70% FiO2 to maintain O2 saturations in the 90s. He was placed on 15 L high flow nasal cannula for breakfast and desaturated fairly quickly into the 80s. He is currently comfortable again on BiPAP. He remains on DuoNeb inhalations 4 times a day and when necessary, IV Lasix, IV Solu-Medrol, antibiotics in the form of Zosyn and Levaquin. White count 14.5. Hemoglobin 8.1. Creatinine remains stable at 0.60. The patient is seen again today 08/21/2017 in follow-up in the intensive care unit. He is currently on the AirVo device at 60 per flow and 80% FiO2. He is maintaining O2 saturations in the mid 90s currently. He is awake and alert in no acute distress. His CAT scan continues to show evidence of groundglass appearance in the bases there is also a right lower lobe and the superior segment noted ovulated soft tissue mass measuring 3.3 x 3.8 x 3.6 cm. There is diffuse areas of groundglass opacities suspect continued infectious/ inflammatory pneumonitis. 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 He is a small right pleural effusion. There is right hilar adenopathy and prominent mediastinal lymph nodes without enlargement. Blood cultures reveal no growth. Urine culture reveals no growth. White count 10.9. Hemoglobin 8.9. Creatinine 0.70. He remains on Zosyn and Levaquin currently. No sputum sample obtained yet. He remains on Lasix 40 mg IV daily, IV Solu-Medrol 40 mg IV every 12 hours, bronchodilators every 4 hours, Pulmicort inhalations twice a day. On 08/22/2017 the patient is being seen in the follow-up. The patient is resting comfortably on a BiPAP at a pressure of 12/5 cm of water and FiO2 of 80% . Note that overnight he was taken off the high flow and placed on BiPAP which she stayed on throughout the night without any major difficulties. His pulse ox remained at 100%. A follow-up chest x-ray is in order for today. Meanwhile the patient is on broad-spectrum antibiotics and I put him on a combination of Merrem and Levaquin. He is also on diuretics and he is on Lasix 40 g every 12 hours is a negative fluid balance and the neck fluid balance over the past 48 hours -2.5 L. His mentation is been appropriate for yesterday afternoon or this morning. He did not require any Haldol. He is hemodynamically stable. The white cell count is not elevated. He is a 22 with a creatinine of 0.7. No other significant events overnight. Objective - Vital Signs Vital signs: Vital Signs Temp 97.0 F L 08/22/17 04:00 Pulse 72 08/22/17 06:00 Resp 23 08/22/17 06:00 BP 113/60 08/22/17 06:00 Pulse Ox 100 08/22/17 06:00 Intake & Output 10/13/17 10/14/17 10/14/17 18:59 06:59 18:59 Intake Total 1157.5 320 Output Total 1470 1625 Balance -312.5 -1305 Weight 85 kg 80.2 kg Intake: IV 657.5 320 Meropenem 2 gm In Sodium 200 100 Chloride 0.9% 100 ml @ 200 mls/hr IVPB Q8HR [facility] Rx#:[id number] Piperacillin-Tazobactam 3 37.5 .375 gm In Dextrose/Water 1 50ml.bag @ 12.5 mls/hr IVPB Q8HR [facility] Rx#: [id number] Potassium Chloride 10 meq 300 In Water For Injection 1 100ml.bag @ 100 mls/hr IVPB Q1H [facility] Rx#: [id number] Sodium Chloride 0.9% 1, 120 220 000 ml @ 20 mls/hr IV . Q24H [facility] Rx#:[id number] Oral 500 Output: Urine 1470 1625 Other: Voiding Method Indwelling Catheter Indwelling Catheter - Exam Elderly, nonacute distress, currently on high flow oxygen, not using accessory muscles of breathing.Head exam was generally normal. There was no scleral icterus or corneal arcus. Mucous membranes were moist.Neck was supple and without jugular venous distension, thyromegaly, or carotid bruits. Carotids were easily palpable bilaterally. There was no adenopathy. Poor dentition. Lung sounds are diminished in lung bases along with coarse crackles heard throughout the lung walters bilaterally especially in the lung bases.Cardiac exam revealed the PMI to be normally situated and sized. The rhythm was regular and no extrasystoles were noted during several minutes of auscultation. The first and second heart sounds were normal and physiologic splitting of the second heart sound was noted. There were no murmurs, rubs, clicks, or gallops.Abdominal exam revealed normal bowel sounds. The abdomen was soft, non- tender, and without masses, organomegaly, or appreciable enlargement of the abdominal aorta. Extremities show a healed wound over the right knee and there is no edema or swelling.Examination of the skin revealed no evidence of significant rashes, suspicious appearing nevi or other concerning lesions. Neurologically is awake and alert and following commands and moving all 4 extremities without any limitation skeletal shows no active arthritis or joint deformities. - Labs CBC & Chem 7: 08/22/17 04:18 08/22/17 04:18 Labs: Abnormal Lab Results - Last 24 Hours (Table) 08/21/17 08/21/17 08/21/17 Range/Units 07:34 12:27 16:56 WBC (3.8-10.6) k/uL RBC (4.30-5.90) m/uL Hgb (13.0-17.5) gm/dL Hct (39.0-53.0) % MCV (80.0-100.0) fL RDW (11.5-15.5) % Neutrophils # (1.3-7.7) k/uL Lymphocytes # (1.0-4.8) k/uL Chloride (98-107) mmol/L Carbon Dioxide (22-30) mmol/L BUN (9-20) mg/dL Glucose (74-99) mg/dL POC Glucose (mg/dL) 116 H 124 H 146 H (75-99) mg/dL Magnesium (1.6-2.3) mg/dL 08/21/17 08/22/17 08/22/17 Range/Units 20:40 04:18 04:18 WBC 13.0 H (3.8-10.6) k/uL RBC 2.91 L (4.30-5.90) m/uL Hgb 9.3 L (13.0-17.5) gm/dL Hct 30.1 L (39.0-53.0) % MCV 103.4 H (80.0-100.0) fL RDW 16.4 H (11.5-15.5) % Neutrophils # 11.8 H (1.3-7.7) k/uL Lymphocytes # 0.8 L (1.0-4.8) k/uL Chloride 95 L (98-107) mmol/L Carbon Dioxide 33 H (22-30) mmol/L BUN 22 H (9-20) mg/dL Glucose 113 H (74-99) mg/dL POC Glucose (mg/dL) 124 H (75-99) mg/dL Magnesium 2.5 H (1.6-2.3) mg/dL 08/22/17 Range/Units 07:02 WBC (3.8-10.6) k/uL RBC (4.30-5.90) m/uL Hgb (13.0-17.5) gm/dL Hct (39.0-53.0) % MCV (80.0-100.0) fL RDW (11.5-15.5) % Neutrophils # (1.3-7.7) k/uL Lymphocytes # (1.0-4.8) k/uL Chloride (98-107) mmol/L Carbon Dioxide (22-30) mmol/L BUN (9-20) mg/dL Glucose (74-99) mg/dL POC Glucose (mg/dL) 114 H (75-99) mg/dL Magnesium (1.6-2.3) mg/dL Microbiology - Last 24 Hours (Table) 08/16/17 21:20 Blood Culture - Preliminary Blood No Growth after 120 hours Assessment and Plan Plan: Assessment 1 acute hypoxic respiratory failure with diffuse bilateral pulmonary infiltrates and a follow-up CAT scan of the chest from 08/20/2017 shows reticular nodular airspace disease with or bronchograms in the upper lobes right more than left. The patient also has elevated soft tissue mass measuring 3.8 x 3.3 x 3.6 cm in size and it appears segment of the right lower lobe which could be a malignancy versus a pseudotumor. There is also evidence of centrilobular emphysema and extensive asbestosis with lower lobe pulmonary fibrosis and extensive pleural calcification related to asbestosis. There are acute decompensating factor causing acute hypoxic respiratory failure is the bilateral pneumonia. There may be a component of CHF in addition. The patient is currently on a combination of Merrem and Levaquin. The patient is also on IV Lasix and he has been maintained on negative fluid balance. The patient has been alternating between high flow oxygen and BiPAP. I noted improvement in aeration of the right upper lobe on today's chest x-ray and the patient will be switched to high flow oxygen again and I'm hoping that his saturation would hold above 90%. 2 asbestosis, by history with extensive pleural calcifications and fibrosis 3 coronary artery disease with abnormal troponin consistent with acute non-ST segment elevation myocardial infarction 4 preserved LV function with normal ejection fraction 5 obstructive sleep apnea maintained on CPAP therapy on outpatient basis 7 hyperlipidemia 8 osteoarthritis 9 recent right knee arthroplasty 10 BPH 11 acute non-ST segment elevation myocardial infarction with a troponin max of 1.8. Plan I had a lengthy discussion with the patient and his . Unfortunately his lung disease is quite advanced. He has extensive asbestosis a superimposed pneumonia. There is also possibility of a right lower lobe mass versus a pseudotumor which will be left alone at this point in time based on the fact that the patient is still in acute hypoxic respiratory failure. We'll continue diuresis. We'll increase the Lasix up to 40 mg every 8 hours as long as the patient is tolerating diuretics well without any major difficulties. We'll keep a negative fluid balance. Continue antibiotics. Continue steroids. Watch for any signs of delirium. Chest x-ray from today was reviewed. There is some improvement in the aeration of the right upper lobe. Prognosis still poor based on the ongoing respiratory difficulties. We'll keep the patient ICU for further follow-up. Attempt to wean down the FiO2 and wean the patient off the BiPAP and utilized high flow oxygen to maintain a saturation above 90%.
[2017-08-22] MEDS: IPRATROPIUM-ALBUTEROL 3 ML NEB INHALATION SCH ×4 (07:36→19:28)
[2017-08-22] MEDS: BUDESONIDE 1 MG/2 ML NEBU INHALATION SCH ×2 (07:36→19:28)
--- NOTE | 2017-08-22 07:58 | XR ---
EXAMINATION TYPE: XR chest 1V DATE OF EXAM: 08/22/2017 HISTORY: pneumonia. REFERENCE: Previous study dated 08/20/2017. FINDINGS: There are calcified pleural plaques present bilaterally. There is patchy, bilateral airspac e disease, essentially unchanged from previous. The heart is mildly enlarged. There is blunting of geri th CP angles. I could not exclude small effusions.. IMPRESSION: 1. BILATERAL PLEURAL PLAQUES. 2. PATCHY BILATERAL PNEUMONIA. 3. MILD CARDIOMEGALY. 4. I CANNOT EXCLUDE SMALL, BILATERAL EFFUSIONS.
[2017-08-22] MEDS: FLUDROCORTISONE 0.1 MG TAB PO SCH (08:13)
[2017-08-22] MEDS: TIMOLOL 0.5% OPHTH DROPS 5 ML BTL BOTH EYES SCH (08:13)
[2017-08-22] MEDS: INSULIN LISPRO (humaLOG) 300 UNIT/3 ML VIAL SQ SCH ×4 (08:13→20:47)
[2017-08-22] MEDS: PANTOPRAZOLE 40 MG/10 ML VIAL IV SCH (08:13)
[2017-08-22] MEDS: MIDODRINE 5 MG TAB PO SCH ×3 (08:13→18:25)
[2017-08-22] MEDS: ENOXAPARIN 40 MG/0.4 ML SYRINGE SQ SCH (08:14)
[2017-08-22] MEDS: methylPREDNISolone SOD SUCCI 40 MG/ML 1 ML VIAL IV SCH ×3 (08:14→23:24)
[2017-08-22] MEDS: LEVOFLOXACIN 750 MG TAB PO SCH (08:14)
[2017-08-22] MEDS: ASPIRIN 81 MG PO SCH (08:14)
[2017-08-22] MEDS: FUROSEMIDE 10 MG/ML 4 ML VIAL IV SCH ×3 (08:14→23:29)
[2017-08-22] MEDS: POLYETHYLENE GLYCOL 3350 17 GM POWD.PACK PO SCH (08:20)
[2017-08-22] MEDS: SENNOSIDES-DOCUSATE SODIUM 1 EACH TAB PO SCH ×2 (08:22→20:40)
--- NOTE | 2017-08-22 12:00 | P.PN ---
Subjective Patient remained on high flow oxygen. Nursing staff and able to wean him down any lower. No events overnight. Objective - Vital Signs Vital signs: Vital Signs Temp 98.4 F 08/22/17 09:00 Pulse 72 08/22/17 11:36 Resp 29 H 08/22/17 11:00 BP 102/55 08/22/17 11:00 Pulse Ox 92 L 08/22/17 11:25 Intake & Output 08/21/17 08/22/17 08/22/17 18:59 06:59 18:59 Intake Total 1157.5 320 440 Output Total 1470 1625 720 Balance -312.5 -1305 -280 Weight 85 kg 80.2 kg Intake: IV 657.5 320 200 Meropenem 2 gm In Sodium 200 100 100 Chloride 0.9% 100 ml @ 200 mls/hr IVPB Q8HR [facility] Rx#:[id number] Piperacillin-Tazobactam 3 37.5 .375 gm In Dextrose/Water 1 50ml.bag @ 12.5 mls/hr IVPB Q8HR [facility] Rx#: [id number] Potassium Chloride 10 meq 300 In Water For Injection 1 100ml.bag @ 100 mls/hr IVPB Q1H [facility] Rx#: [id number] Sodium Chloride 0.9% 1, 120 220 100 000 ml @ 20 mls/hr IV . Q24H [facility] Rx#:[id number] Oral 500 240 Output: Urine 1470 1625 720 Other: Voiding Method Indwelling Catheter Indwelling Catheter Indwelling Catheter - Exam General: The patient is awake and alert, in no distress Eye: there is normal conjunctiva bilaterally. Neck: The neck is supple, there is no JVD. Cardiovascular: Normal S1-S2, no S3-S4, no murmurs. Respiratory: Lungs with bibasilar crackles Gastrointestinal: Abdomen is soft, nontender Musculoskeletal: There is no pedal edema. Neurological:. Speech is normal. Skin: Skin is warm and dry - Labs CBC & Chem 7: 08/22/17 04:18 08/22/17 04:18 Labs: Abnormal Lab Results - Last 24 Hours (Table) 08/21/17 08/21/17 08/21/17 Range/Units 12:27 16:56 20:40 WBC (3.8-10.6) k/uL RBC (4.30-5.90) m/uL Hgb (13.0-17.5) gm/dL Hct (39.0-53.0) % MCV (80.0-100.0) fL RDW (11.5-15.5) % Neutrophils # (1.3-7.7) k/uL Lymphocytes # (1.0-4.8) k/uL Chloride (98-107) mmol/L Carbon Dioxide (22-30) mmol/L BUN (9-20) mg/dL Glucose (74-99) mg/dL POC Glucose (mg/dL) 124 H 146 H 124 H (75-99) mg/dL Magnesium (1.6-2.3) mg/dL 08/22/17 08/22/17 08/22/17 Range/Units 04:18 04:18 07:02 WBC 13.0 H (3.8-10.6) k/uL RBC 2.91 L (4.30-5.90) m/uL Hgb 9.3 L (13.0-17.5) gm/dL Hct 30.1 L (39.0-53.0) % MCV 103.4 H (80.0-100.0) fL RDW 16.4 H (11.5-15.5) % Neutrophils # 11.8 H (1.3-7.7) k/uL Lymphocytes # 0.8 L (1.0-4.8) k/uL Chloride 95 L (98-107) mmol/L Carbon Dioxide 33 H (22-30) mmol/L BUN 22 H (9-20) mg/dL Glucose 113 H (74-99) mg/dL POC Glucose (mg/dL) 114 H (75-99) mg/dL Magnesium 2.5 H (1.6-2.3) mg/dL Microbiology - Last 24 Hours (Table) 08/16/17 21:20 Blood Culture - Preliminary Blood No Growth after 120 hours Assessment and Plan Plan: 1. Progressive dyspnea with suspected healthcare acquired pneumonia 2. Diastolic heart failure exacerbation with pulmonary edema 3. Coronary artery disease with prior stent placement 4. Chronic orthostatic hypotension 5. Obstructive sleep apnea 6. Acute hypoxic respiratory failure 7. Suspected right upper lobe lung mass: We will need further investigation when patient is more stable clinically 8. Underlying pneumonia, antibiotic management by pulmonology currently on Merrem Today, I reviewed his medication list and lab work results. Wean off O2 as tolerated for O2 sats above 90%. Appreciate automotive internet sales consultant's recommendations. Computed tomography scan of the chest as ordered by pulmonology. Continue current regimen. Patient prognosis is guarded. No family members at bedside to be updated. I will continue to follow up on him closely.
[2017-08-22 12:23] LABS: Glucose,Whole Blood 185 mg/dL (75-99)
[2017-08-22 17:17] LABS: Glucose,Whole Blood 179 mg/dL (75-99)
[2017-08-22] MEDS: TAMSULOSIN 0.4 MG CAP.ER.24H PO SCH (18:25)
[2017-08-22] MEDS: ATORVASTATIN 80 MG TAB PO SCH (20:40)
[2017-08-22] MEDS: SERTRALINE 50 MG TAB PO SCH (20:40)
[2017-08-22 20:49] LABS: Glucose,Whole Blood 162 mg/dL (75-99)
[2017-08-22] MEDS: ACETAMINOPHEN TAB 325 MG TAB PO PRN (23:54)
[2017-08-23 04:43] LABS: Anisocytosis Slight; Basophils % (A) 0 %; CH 33.3; CHCM 32.4; Eosinophils % (A) 0 %; HCT 29.4 % (39.0-53.0); HDW 3.29; Hypochromasia Slight; Luc # (Auto) 0.08; Luc % (Auto) 1; Lymphocytes # (A) 0.9 k/uL (1.0-4.8); Lymphocytes % (A) 6 %; MCH 31.5 pg (25.0-35.0); MCHC 30.6 g/dL (31.0-37.0); MCV 102.9 fL (80.0-100.0); Macrocytosis Slight; Mean Platelet Volume 7.4; Monocytes # (A) 0.4 k/uL (0-1.0); Monocytes % (A) 3 %; Neutrophils # (A) 13.7 k/uL (1.3-7.7); Neutrophils % (A) 91 %; RBC 2.85 m/uL (4.30-5.90); RDW 16.5 % (11.5-15.5); WBC (Perox) 15.45
[2017-08-23 05:25] LABS: Anion Gap 10 mmol/L; Blood Urea Nitrogen 34 mg/dL (9-20); Calcium 8.6 mg/dL (8.4-10.2); Carbon Dioxide 32 mmol/L (22-30); Chloride 95 mmol/L (98-107); Glucose 119 mg/dL (74-99); Magnesium 2.6 mg/dL (1.6-2.3); Non-African American GFR(MDRD) >60 (>60 ml/min/1.73 sqM); Phosphorus 3.3 mg/dL (2.5-4.5); Sodium 137 mmol/L (137-145)
--- NOTE | 2017-08-23 07:10 | XR ---
EXAMINATION TYPE: XR chest 1V portable DATE OF EXAM: 08/23/2017 HISTORY: Clinical observation for oxygen desaturations. REFERENCE: Previous study dated 08/22/2017. FINDINGS: There are calcified pleural plaques present bilaterally. There is worsening bilateral airsp dragan disease. The heart is upper limits of normal in size. There are small, bilateral effusions. IMPRESSION: 1. WORSENING BILATERAL AIRSPACE DISEASE MAY REPRESENT WORSENING EDEMA OR PNEUMONIA. 2. BORDERLINE CARDIOMEGALY. 3. SMALL, BILATERAL EFFUSIONS.
[2017-08-23 07:41] LABS: Glucose,Whole Blood 121 mg/dL (75-99)
[2017-08-23] MEDS: FUROSEMIDE 10 MG/ML 4 ML VIAL IV SCH ×3 (08:16→23:08)
[2017-08-23] MEDS: POLYETHYLENE GLYCOL 3350 17 GM POWD.PACK PO SCH (08:16)
[2017-08-23] MEDS: methylPREDNISolone SOD SUCCI 40 MG/ML 1 ML VIAL IV SCH (08:16)
[2017-08-23] MEDS: PANTOPRAZOLE 40 MG/10 ML VIAL IV SCH (08:16)
[2017-08-23] MEDS: FLUDROCORTISONE 0.1 MG TAB PO SCH (08:16)
[2017-08-23] MEDS: TIMOLOL 0.5% OPHTH DROPS 5 ML BTL BOTH EYES SCH (08:17)
[2017-08-23] MEDS: LEVOFLOXACIN 750 MG TAB PO SCH (08:17)
[2017-08-23] MEDS: ASPIRIN 81 MG PO SCH (08:17)
[2017-08-23] MEDS: ENOXAPARIN 40 MG/0.4 ML SYRINGE SQ SCH (08:17)
[2017-08-23] MEDS: MIDODRINE 5 MG TAB PO SCH ×3 (08:17→17:30)
[2017-08-23] MEDS: INSULIN LISPRO (humaLOG) 300 UNIT/3 ML VIAL SQ SCH ×4 (08:18→21:32)
[2017-08-23] MEDS: SODIUM CHLORIDE 0.9% 1,000 ML IV SCH ×2 (08:18→21:32)
[2017-08-23] MEDS: IPRATROPIUM-ALBUTEROL 3 ML NEB INHALATION SCH ×4 (08:31→18:53)
[2017-08-23] MEDS: BUDESONIDE 1 MG/2 ML NEBU INHALATION SCH ×2 (08:31→18:53)
[2017-08-23] MEDS: MEROPENEM 2 GM in SODIUM CHLORIDE 0.9% 100 ML IVPB SCH ×3 (08:32→23:11)
[2017-08-23] MEDS: SENNOSIDES-DOCUSATE SODIUM 1 EACH TAB PO SCH ×2 (08:33→21:32)
--- NOTE | 2017-08-23 10:49 | P.PN ---
Subjective Progress Note Date: 08/23/17 Acute hypoxic respiratory failure secondary to diffuse bilateral pulmonary infiltrates. This is an 87-year-old male patient was referred to us from [facility] because of worsening shortness of breath. The patient was on ECF where he was undergoing rehabilitation for shortness of breath and dizziness. He has history of asbestosis with extensive bilateral pleural calcification as evident on previous chest x-rays. Based on his worsening shortness of breath, a CAT scan of the chest was done and it showed bilateral pleural effusion, interstitial edema, a questionable 4 cm right lower lobe mass and extensive bilateral pleural calcification typical of an underlying asbestosis. No significant cough or sputum production. No fever chills or night sweats. The patient was transferred here and I reviewed the CAT scan of the chest. Troponins were minimally elevated and troponin maxed is at 0.3 and 0.7. Echocardiogram from July of this year showed an ejection fraction of 55-60 % with mild TR, mild MR and mild pulmonary hypertension. He has history of coronary artery disease, hyperlipidemia and osteoarthritis along with glaucoma and depression. He has had previous cardiac stents placed. He is known to have coronary artery disease .Note that the patient was in the hospital on 07/28 for a total right knee arthroplasty. The procedure was performed without any complications. Postop the patient had a fall and he had orthostatic hypotension and urinary retention. He had an echocardiogram that showed no significant abnormalities. Doppler of the lower extremity was also negative. He was started on Florinef. He was ultimately sent to [facility] for rehabilitation. On 08/18/2017 I'm seeing this patient for a follow-up. I can't understand that overnight the patient's condition decompensated. He became progressively more hypoxic. Based on that he was placed on a BiPAP at a pressure of 12/5 cm of water and FiO2 of 80%. His current pulse ox is barely above 90%. He is short of breath. I reviewed the chest x-ray from today and there is a dense consolidation of the right upper lobe in addition to extensive background fibrosis and asbestosis with significant pleural calcification. The patient is still short of breath and he is having some limited shortness of breath even at rest. He has a congested cough. Unable to bring up much sputum. His blood culture been negative thus far. His white cell count is elevated at 14.4. Hemoglobin stable at 8.3. He is covered with broad-spectrum antibiotics and he is coming on a combination of Zosyn and Levaquin. Is being diuresis gently with Lasix 40 mg IV push every 12 hours. He is also on bronchodilators with DuoNeb the last treatment [id number]. He'll be transferred to the intensive care unit. He'll be started also on some systemic steroids. On 08/19/2017 I'm seeing this patient in follow-up. The patient is feeling much better. He is less short of breath. This morning he was taken off the BiPAP and is currently on high flow oxygen at 15 L and saturations around 97%. I'm in the process of weaning down the FiO2 down to 12% and down to 10%. Chest x-ray from today shows and it shows multifocal airspace disease/infiltrates with improved aeration of the left upper lobe. There is also an opacity in the right lung base which is probably a pseudotumor. His underlying interstitial fibrosis and asbestosis. The patient is having an chief of service breakfast today. No nausea. No vomiting. No abdominal pain. No hypotension. No drop in urine output. He remains on a combination of Levaquin and Zosyn as broad- spectrum antibiotic coverage. The latency count is stable at 11.8. No other significant events overnight. The patient is seen again today 08/20/2017 in follow-up in the intensive care unit. He is awake and alert in no acute distress. His chest x-ray shows improved aeration bilaterally. Unfortunately, the patient still requires BiPAP support with an increase in the IPAP of 12 and EPAP of 5. He remains on 70% FiO2 to maintain O2 saturations in the 90s. He was placed on 15 L high flow nasal cannula for breakfast and desaturated fairly quickly into the 80s. He is currently comfortable again on BiPAP. He remains on DuoNeb inhalations 4 times a day and when necessary, IV Lasix, IV Solu-Medrol, antibiotics in the form of Zosyn and Levaquin. White count 14.5. Hemoglobin 8.1. Creatinine remains stable at 0.60. The patient is seen again today 08/21/2017 in follow-up in the intensive care unit. He is currently on the AirVo device at 60 per flow and 80% FiO2. He is maintaining O2 saturations in the mid 90s currently. He is awake and alert in no acute distress. His CAT scan continues to show evidence of groundglass appearance in the bases there is also a right lower lobe and the superior segment noted ovulated soft tissue mass measuring 3.3 x 3.8 x 3.6 cm. There is diffuse areas of groundglass opacities suspect continued infectious/ inflammatory pneumonitis. 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 He is a small right pleural effusion. There is right hilar adenopathy and prominent mediastinal lymph nodes without enlargement. Blood cultures reveal no growth. Urine culture reveals no growth. White count 10.9. Hemoglobin 8.9. Creatinine 0.70. He remains on Zosyn and Levaquin currently. No sputum sample obtained yet. He remains on Lasix 40 mg IV daily, IV Solu-Medrol 40 mg IV every 12 hours, bronchodilators every 4 hours, Pulmicort inhalations twice a day. On 08/22/2017 the patient is being seen in the follow-up. The patient is resting comfortably on a BiPAP at a pressure of 12/5 cm of water and FiO2 of 80% . Note that overnight he was taken off the high flow and placed on BiPAP which she stayed on throughout the night without any major difficulties. His pulse ox remained at 100%. A follow-up chest x-ray is in order for today. Meanwhile the patient is on broad-spectrum antibiotics and I put him on a combination of Merrem and Levaquin. He is also on diuretics and he is on Lasix 40 g every 12 hours is a negative fluid balance and the neck fluid balance over the past 48 hours -2.5 L. His mentation is been appropriate for yesterday afternoon or this morning. He did not require any Haldol. He is hemodynamically stable. The white cell count is not elevated. He is a 22 with a creatinine of 0.7. No other significant events overnight. On 08/23/2017 the patient is being seen in follow-up in the intensive care unit. He is still hypoxic although somewhat improved compared to yesterday and today before. He is tolerating the OptiFlow at 65% FiO2 and his pulse ox is around 94-95%. On and off she is still using the BiPAP. This morning he is on the OptiFlow and is not having any major history distress. He desaturates however with some limited amount of activity. He is diuresing and he is in a negative fluid balance over the past 3 days. Currently is on Lasix 40 mg IV push every 8 hours. He is on a combination of Merrem and Levaquin. He has no altered mentation. Hemodynamically stable. BUN is slightly on the rise and is up to 34 with a creatinine of 0.8 on today's blood work and this is related to aggressive diuresis. No other significant events overnight. He is tolerating diet although his oral intake is limited. He is a bit weak. His cardiac rhythm is sinus. No fever. No chills. No leukocytosis. No other complaints otherwise. Objective - Vital Signs Vital signs: Vital Signs Temp 97.9 F 08/23/17 08:00 Pulse 77 08/23/17 10:00 Resp 23 08/23/17 10:00 BP 110/58 08/23/17 10:00 Pulse Ox 97 08/23/17 10:00 Intake & Output 08/22/17 08/23/17 08/23/17 18:59 06:59 18:59 Intake Total 1160 600 400 Output Total 1270 1310 720 Balance -110 -710 -320 Weight 82.3 kg Intake: IV 440 350 160 Meropenem 2 gm In Sodium 200 100 100 Chloride 0.9% 100 ml @ 200 mls/hr IVPB Q8HR [facility] Rx#:[id number] Sodium Chloride 0.9% 1, 240 250 60 000 ml @ 20 mls/hr IV . Q24H [facility]ON Rx#:[id number] Oral 720 250 240 Output: Urine 1270 1310 720 Other: Voiding Method Indwelling Catheter Indwelling Catheter Indwelling Catheter - Exam Elderly, nonacute distress, currently on high flow oxygen, not using accessory muscles of breathing.the patient is on OptiFlow at 65%. Head exam was generally normal. There was no scleral icterus or corneal arcus. Mucous membranes were moist.Neck was supple and without jugular venous distension, thyromegaly, or carotid bruits. Carotids were easily palpable bilaterally. There was no adenopathy. Poor dentition. Lung sounds are diminished in lung bases along with coarse crackles heard throughout the lung walters bilaterally especially in the lung bases.Cardiac exam revealed the PMI to be normally situated and sized. The rhythm was regular and no extrasystoles were noted during several minutes of auscultation. The first and second heart sounds were normal and physiologic splitting of the second heart sound was noted. There were no murmurs, rubs, clicks, or gallops.Abdominal exam revealed normal bowel sounds. The abdomen was soft, non-tender, and without masses, organomegaly, or appreciable enlargement of the abdominal aorta. Extremities show a healed wound over the right knee and there is no edema or swelling.Examination of the skin revealed no evidence of significant rashes, suspicious appearing nevi or other concerning lesions. Neurologically is awake and alert and following commands and moving all 4 extremities without any limitation skeletal shows no active arthritis or joint deformities. - Labs CBC & Chem 7: 08/23/17 04:11 08/23/17 04:11 Labs: Abnormal Lab Results - Last 24 Hours (Table) 08/22/17 08/22/17 08/22/17 Range/Units 12:20 17:15 20:47 WBC (3.8-10.6) k/uL RBC (4.30-5.90) m/uL Hgb (13.0-17.5) gm/dL Hct (39.0-53.0) % MCV (80.0-100.0) fL MCHC (31.0-37.0) g/dL RDW (11.5-15.5) % Neutrophils # (1.3-7.7) k/uL Lymphocytes # (1.0-4.8) k/uL Chloride (98-107) mmol/L Carbon Dioxide (22-30) mmol/L BUN (9-20) mg/dL Glucose (74-99) mg/dL POC Glucose (mg/dL) 185 H 179 H 162 H (75-99) mg/dL Magnesium (1.6-2.3) mg/dL 08/23/17 08/23/17 08/23/17 Range/Units 04:11 04:11 07:38 WBC 15.0 H (3.8-10.6) k/uL RBC 2.85 L (4.30-5.90) m/uL Hgb 9.0 L (13.0-17.5) gm/dL Hct 29.4 L (39.0-53.0) % MCV 102.9 H (80.0-100.0) fL MCHC 30.6 L (31.0-37.0) g/dL RDW 16.5 H (11.5-15.5) % Neutrophils # 13.7 H (1.3-7.7) k/uL Lymphocytes # 0.9 L (1.0-4.8) k/uL Chloride 95 L (98-107) mmol/L Carbon Dioxide 32 H (22-30) mmol/L BUN 34 H (9-20) mg/dL Glucose 119 H (74-99) mg/dL POC Glucose (mg/dL) 121 H (75-99) mg/dL Magnesium 2.6 H (1.6-2.3) mg/dL Microbiology - Last 24 Hours (Table) 08/16/17 21:20 Blood Culture - Final Blood No Growth after 144 hours Assessment and Plan Plan: Assessment 1 acute hypoxic respiratory failure with diffuse bilateral pulmonary infiltrates and a follow-up CAT scan of the chest from 08/20/2017 shows reticular nodular airspace disease with or bronchograms in the upper lobes right more than left. The patient also has elevated soft tissue mass measuring 3.8 x 3.3 x 3.6 cm in size and it appears segment of the right lower lobe which could be a malignancy versus a pseudotumor. There is also evidence of centrilobular emphysema and extensive asbestosis with lower lobe pulmonary fibrosis and extensive pleural calcification related to asbestosis. There are acute decompensating factor causing acute hypoxic respiratory failure is the bilateral pneumonia. There may be a component of CHF in addition. The patient is currently on a combination of Merrem and Levaquin. The patient is also on IV Lasix and he has been maintained on negative fluid balance. The patient has been alternating between high flow oxygen and BiPAP. I noted improvement in aeration of the right upper lobe on today's chest x-ray and the patient will be switched to high flow oxygen again and I'm hoping that his saturation would hold above 90%. On 08/23/2017 the patient remains on OptiFlow at 65%. The x-rays overall has shown improvement since his admission although not complete recovery. As mentioned is a right lower lobe opacity/mass which could be potentially malignant. The patient is being diuresis and his a negative fluid balance. The patient is also on broad-spectrum antibiotics. He is still requiring high flow of oxygen. His got pulmonary fibrosis related to asbestosis in addition to a superimposed pneumonia possibly lung mass/cancer. 2 asbestosis, by history with extensive pleural calcifications and fibrosis 3 coronary artery disease with abnormal troponin consistent with acute non-ST segment elevation myocardial infarction 4 preserved LV function with normal ejection fraction 5 obstructive sleep apnea maintained on CPAP therapy on outpatient basis 7 hyperlipidemia 8 osteoarthritis 9 recent right knee arthroplasty 10 BPH 11 acute non-ST segment elevation myocardial infarction with a troponin max of 1.8. Plan I had a lengthy discussion with the patient and his . Unfortunately his lung disease is quite advanced. He has extensive asbestosis a superimposed pneumonia. There is also possibility of a right lower lobe mass versus a pseudotumor which will be left alone at this point in time based on the fact that the patient is still in acute hypoxic respiratory failure. Continue same treatment. Antibiotic coverage is adequate. Diuretics will be continued as long as a monitoring the patient's fluid balance and urine output adequately. No major it right in disturbances for now. Watch for any prerenal azotemia. Meanwhile, continue the bronchodilators. Stopped IV Solu Medrol start the patient on prednisone burst taper. OptiFlow at 65% will be gradually weaned down and to maintain a saturation above 88%. We'll continue to follow. Condition remains critical. Recovery is slow however the patient is gradually improving based on x-ray findings
--- NOTE | 2017-08-23 11:45 | P.PN ---
Subjective Patient remained on high flow oxygen. Nursing staff and able to wean him down any lower. No events overnight. Objective - Vital Signs Vital signs: Vital Signs Temp 97.9 F 08/23/17 08:00 Pulse 78 08/23/17 11:00 Resp 23 08/23/17 11:00 BP 94/46 08/23/17 11:00 Pulse Ox 91 L 08/23/17 11:00 Intake & Output 08/22/17 08/23/17 08/23/17 18:59 06:59 18:59 Intake Total 1160 600 420 Output Total 1270 1310 820 Balance -110 -710 -400 Weight 82.3 kg Intake: IV 440 350 180 Meropenem 2 gm In Sodium 200 100 100 Chloride 0.9% 100 ml @ 200 mls/hr IVPB Q8HR [facility] Rx#:[id number] Sodium Chloride 0.9% 1, 240 250 80 000 ml @ 20 mls/hr IV . Q24H [facility]ON Rx#:[id number] Oral 720 250 240 Output: Urine 1270 1310 820 Other: Voiding Method Indwelling Catheter Indwelling Catheter Indwelling Catheter - Exam General: The patient is awake and alert, in no distress Eye: there is normal conjunctiva bilaterally. Neck: The neck is supple, there is no JVD. Cardiovascular: Normal S1-S2, no S3-S4, no murmurs. Respiratory: Lungs with bibasilar crackles Gastrointestinal: Abdomen is soft, nontender Musculoskeletal: There is no pedal edema. Neurological:. Speech is normal. Skin: Skin is warm and dry - Labs CBC & Chem 7: 08/23/17 04:11 08/23/17 04:11 Labs: Abnormal Lab Results - Last 24 Hours (Table) 08/22/17 08/22/17 08/22/17 Range/Units 12:20 17:15 20:47 WBC (3.8-10.6) k/uL RBC (4.30-5.90) m/uL Hgb (13.0-17.5) gm/dL Hct (39.0-53.0) % MCV (80.0-100.0) fL MCHC (31.0-37.0) g/dL RDW (11.5-15.5) % Neutrophils # (1.3-7.7) k/uL Lymphocytes # (1.0-4.8) k/uL Chloride (98-107) mmol/L Carbon Dioxide (22-30) mmol/L BUN (9-20) mg/dL Glucose (74-99) mg/dL POC Glucose (mg/dL) 185 H 179 H 162 H (75-99) mg/dL Magnesium (1.6-2.3) mg/dL 08/23/17 08/23/17 08/23/17 Range/Units 04:11 04:11 07:38 WBC 15.0 H (3.8-10.6) k/uL RBC 2.85 L (4.30-5.90) m/uL Hgb 9.0 L (13.0-17.5) gm/dL Hct 29.4 L (39.0-53.0) % MCV 102.9 H (80.0-100.0) fL MCHC 30.6 L (31.0-37.0) g/dL RDW 16.5 H (11.5-15.5) % Neutrophils # 13.7 H (1.3-7.7) k/uL Lymphocytes # 0.9 L (1.0-4.8) k/uL Chloride 95 L (98-107) mmol/L Carbon Dioxide 32 H (22-30) mmol/L BUN 34 H (9-20) mg/dL Glucose 119 H (74-99) mg/dL POC Glucose (mg/dL) 121 H (75-99) mg/dL Magnesium 2.6 H (1.6-2.3) mg/dL Microbiology - Last 24 Hours (Table) 08/16/17 21:20 Blood Culture - Final Blood No Growth after 144 hours Assessment and Plan Plan: 1. Progressive dyspnea with suspected healthcare acquired pneumonia 2. Diastolic heart failure exacerbation with pulmonary edema 3. Coronary artery disease with prior stent placement 4. Chronic orthostatic hypotension 5. Obstructive sleep apnea 6. Acute hypoxic respiratory failure 7. Suspected right upper lobe lung mass: We will need further investigation when patient is more stable clinically 8. Underlying pneumonia, antibiotic management by pulmonology currently on Merrem Today, I reviewed his medication list and lab work results. Wean off O2 as tolerated for O2 sats above 90%. Appreciate spa consultant's recommendations. Computed tomography scan of the chest as ordered by pulmonology. Continue current regimen. Patient prognosis is guarded. No family members at bedside to be updated. I will continue to follow up on him closely.
[2017-08-23 12:22] LABS: Glucose,Whole Blood 119 mg/dL (75-99)
[2017-08-23] MEDS: predniSONE 10 MG TAB PO SCH (12:23)
[2017-08-23] MEDS: ACETAMINOPHEN TAB 325 MG TAB PO PRN (13:44)
[2017-08-23] MEDS: traMADol 50 MG TAB PO PRN (14:28)
[2017-08-23] MEDS ORDERED: MORPHINE SULFATE 2 MG/ML SYRINGE IVP STA (17:03)
[2017-08-23 17:21] LABS: Glucose,Whole Blood 137 mg/dL (75-99)
[2017-08-23] MEDS: TAMSULOSIN 0.4 MG CAP.ER.24H PO SCH (19:02)
[2017-08-23 21:32] LABS: Glucose,Whole Blood 126 mg/dL (75-99)
[2017-08-23] MEDS: ATORVASTATIN 80 MG TAB PO SCH (21:32)
[2017-08-23] MEDS: SERTRALINE 50 MG TAB PO SCH (21:32)
[2017-08-24] MEDS: traMADol 50 MG TAB PO PRN (01:53)
[2017-08-24] MEDS: ACETAMINOPHEN TAB 325 MG TAB PO PRN ×4 (02:45→22:03)
[2017-08-24 04:45] LABS: Basophils % (A) 0 %; CH 32.2; Eosinophils % (A) 0 %; HCT 30.4 % (39.0-53.0); HDW 3.53; HGB 9.6 gm/dL (13.0-17.5); Hypochromasia Moderate; Luc # (Auto) 0.18; Luc % (Auto) 1; Lymphocytes # (A) 1.7 k/uL (1.0-4.8); Lymphocytes % (A) 9 %; MCHC 31.7 g/dL (31.0-37.0); MCV 100.9 fL (80.0-100.0); Macrocytosis Slight; Mean Platelet Volume 7.5; Monocytes # (A) 0.7 k/uL (0-1.0); Monocytes % (A) 4 %; Neutrophils # (A) 15.7 k/uL (1.3-7.7); Neutrophils % (A) 86 %; Poikilocytosis Slight; RBC 3.01 m/uL (4.30-5.90); RDW 15.5 % (11.5-15.5); WBC 18.4 k/uL (3.8-10.6); WBC (Perox) 18.37
[2017-08-24 04:54] LABS: Anion Gap 9 mmol/L; Blood Urea Nitrogen 34 mg/dL (9-20); Calcium 8.3 mg/dL (8.4-10.2); Carbon Dioxide 34 mmol/L (22-30); Chloride 91 mmol/L (98-107); Glucose 98 mg/dL (74-99); Magnesium 2.6 mg/dL (1.6-2.3); Non-African American GFR(MDRD) >60 (>60 ml/min/1.73 sqM); Potassium 3.7 mmol/L (3.5-5.1); Sodium 134 mmol/L (137-145)
[2017-08-24] MEDS ORDERED: Potassium Replacement Protocol 1 EACH MISC MISCELLANE PRN (05:19)
[2017-08-24] MEDS ORDERED: POTASSIUM CHLORIDE ER 20 MEQ TAB.ER PO SCH (06:00)
[2017-08-24 07:17] LABS: Glucose,Whole Blood 97 mg/dL (75-99)
--- NOTE | 2017-08-24 07:34 | XR ---
EXAMINATION TYPE: XR chest 1V portable DATE OF EXAM: 08/24/2017 Comparison: 08/23/2017 Clinical History: 87-year-old male Clinical observation for oxygen desaturations Findings: Left heart margin obscured by adjacent pleural-parenchymal disease. Obscuration of the lower aortic d issection does well. 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 Diffuse interstitial and patchy and confluent airspace opacity is again noted. There is some im proving aeration particularly in the right lung. Small effusions may be present. Impression: Persistent multifocal airspace disease but with improving aeration in the right upper lobe. Prior asb estos exposure
[2017-08-24] MEDS: INSULIN LISPRO (humaLOG) 300 UNIT/3 ML VIAL SQ SCH ×4 (07:59→20:43)
[2017-08-24] MEDS: POLYETHYLENE GLYCOL 3350 17 GM POWD.PACK PO SCH (08:01)
[2017-08-24] MEDS: MEROPENEM 2 GM in SODIUM CHLORIDE 0.9% 100 ML IVPB SCH ×2 (08:02→16:26)
[2017-08-24] MEDS: PANTOPRAZOLE 40 MG/10 ML VIAL IV SCH (08:02)
[2017-08-24] MEDS: FUROSEMIDE 10 MG/ML 4 ML VIAL IV SCH ×2 (08:02→16:26)
[2017-08-24] MEDS: ENOXAPARIN 40 MG/0.4 ML SYRINGE SQ SCH (08:02)
[2017-08-24] MEDS: predniSONE 10 MG TAB PO SCH (08:03)
[2017-08-24] MEDS: SENNOSIDES-DOCUSATE SODIUM 1 EACH TAB PO SCH ×2 (08:03→20:46)
[2017-08-24] MEDS: LEVOFLOXACIN 750 MG TAB PO SCH (08:03)
[2017-08-24] MEDS: MIDODRINE 5 MG TAB PO SCH ×3 (08:03→17:26)
[2017-08-24] MEDS: FLUDROCORTISONE 0.1 MG TAB PO SCH (08:03)
[2017-08-24] MEDS: TIMOLOL 0.5% OPHTH DROPS 5 ML BTL BOTH EYES SCH (08:03)
[2017-08-24] MEDS: ASPIRIN 81 MG PO SCH (08:04)
[2017-08-24] MEDS: BUDESONIDE 1 MG/2 ML NEBU INHALATION SCH ×2 (08:20→19:07)
[2017-08-24] MEDS: IPRATROPIUM-ALBUTEROL 3 ML NEB INHALATION SCH ×4 (08:20→19:07)
--- NOTE | 2017-08-24 11:44 | P.PN ---
Subjective Patient remained on high flow oxygen. Nursing staff and able to wean him down any lower. No events overnight. Objective - Vital Signs Vital signs: Vital Signs Temp 97.5 F L 08/24/17 08:00 Pulse 78 08/24/17 11:29 Resp 23 08/24/17 11:00 BP 93/57 08/24/17 11:00 Pulse Ox 94 L 08/24/17 11:00 Intake & Output 08/23/17 08/24/17 08/24/17 18:59 06:59 18:59 Intake Total 560 520 440 Output Total 1400 1535 555 Balance -840 -1015 -115 Weight 81.7 kg Intake: IV 320 420 200 Meropenem 2 gm In Sodium 100 200 100 Chloride 0.9% 100 ml @ 200 mls/hr IVPB Q8HR [facility] Rx#:[id number] Sodium Chloride 0.9% 1, 220 220 100 000 ml @ 20 mls/hr IV . Q24H [facility] Rx#:[id number] Oral 240 100 240 Output: Urine 1400 1535 555 Other: Voiding Method Indwelling Catheter Indwelling Catheter Indwelling Catheter - Exam General: The patient is awake and alert, in no distress Eye: there is normal conjunctiva bilaterally. Neck: The neck is supple, there is no JVD. Cardiovascular: Normal S1-S2, no S3-S4, no murmurs. Respiratory: Lungs with bibasilar crackles Gastrointestinal: Abdomen is soft, nontender Musculoskeletal: There is no pedal edema. Neurological:. Speech is normal. Skin: Skin is warm and dry - Labs CBC & Chem 7: 08/24/17 04:22 08/24/17 04:22 Labs: Abnormal Lab Results - Last 24 Hours (Table) 08/23/17 08/23/17 08/23/17 Range/Units 12:20 17:18 21:30 WBC (3.8-10.6) k/uL RBC (4.30-5.90) m/uL Hgb (13.0-17.5) gm/dL Hct (39.0-53.0) % MCV (80.0-100.0) fL Neutrophils # (1.3-7.7) k/uL Sodium (137-145) mmol/L Chloride (98-107) mmol/L Carbon Dioxide (22-30) mmol/L BUN (9-20) mg/dL POC Glucose (mg/dL) 119 H 137 H 126 H (75-99) mg/dL Calcium (8.4-10.2) mg/dL Magnesium (1.6-2.3) mg/dL 08/24/17 08/24/17 Range/Units 04:22 04:22 WBC 18.4 H (3.8-10.6) k/uL RBC 3.01 L (4.30-5.90) m/uL Hgb 9.6 L (13.0-17.5) gm/dL Hct 30.4 L (39.0-53.0) % MCV 100.9 H (80.0-100.0) fL Neutrophils # 15.7 H (1.3-7.7) k/uL Sodium 134 L (137-145) mmol/L Chloride 91 L (98-107) mmol/L Carbon Dioxide 34 H (22-30) mmol/L BUN 34 H (9-20) mg/dL POC Glucose (mg/dL) (75-99) mg/dL Calcium 8.3 L (8.4-10.2) mg/dL Magnesium 2.6 H (1.6-2.3) mg/dL Assessment and Plan Plan: 1. Progressive dyspnea with suspected healthcare acquired pneumonia 2. Diastolic heart failure exacerbation with pulmonary edema 3. Coronary artery disease with prior stent placement 4. Chronic orthostatic hypotension 5. Obstructive sleep apnea 6. Acute hypoxic respiratory failure 7. Suspected right upper lobe lung mass: We will need further investigation when patient is more stable clinically 8. Underlying pneumonia, antibiotic management by pulmonology currently on Merrem Today, I reviewed his medication list and lab work results. Wean off O2 as tolerated for O2 sats above 90%. Appreciate communication consultant's recommendations. Computed tomography scan of the chest done a few days ago reviewed. Patient prognosis is guarded. No family members at bedside to be updated. I will continue to follow up on him closely.
[2017-08-24 12:25] LABS: Glucose,Whole Blood 133 mg/dL (75-99)
--- NOTE | 2017-08-24 14:00 | P.PN ---
Subjective Progress Note Date: 08/24/17 Principal diagnosis: Acute hypoxic respiratory failure secondary to pneumonia and congestive heart failure. This is an 87-year-old male patient was referred to us from [facility] because of worsening shortness of breath. The patient was on ECF where he was undergoing rehabilitation for shortness of breath and dizziness. He has history of asbestosis with extensive bilateral pleural calcification as evident on previous chest x-rays. Based on his worsening shortness of breath, a CAT scan of the chest was done and it showed bilateral pleural effusion, interstitial edema, a questionable 4 cm right lower lobe mass and extensive bilateral pleural calcification typical of an underlying asbestosis. No significant cough or sputum production. No fever chills or night sweats. The patient was transferred here and I reviewed the CAT scan of the chest. Troponins were minimally elevated and troponin maxed is at 0.3 and 0.7. Echocardiogram from July of this year showed an ejection fraction of 55-60 % with mild TR, mild MR and mild pulmonary hypertension. He has history of coronary artery disease, hyperlipidemia and osteoarthritis along with glaucoma and depression. He has had previous cardiac stents placed. He is known to have coronary artery disease .Note that the patient was in the hospital on 07/28 for a total right knee arthroplasty. The procedure was performed without any complications. Postop the patient had a fall and he had orthostatic hypotension and urinary retention. He had an echocardiogram that showed no significant abnormalities. Doppler of the lower extremity was also negative. He was started on Florinef. He was ultimately sent to [facility] for rehabilitation. On 08/18/2017 I'm seeing this patient for a follow-up. I can't understand that overnight the patient's condition decompensated. He became progressively more hypoxic. Based on that he was placed on a BiPAP at a pressure of 12/5 cm of water and FiO2 of 80%. His current pulse ox is barely above 90%. He is short of breath. I reviewed the chest x-ray from today and there is a dense consolidation of the right upper lobe in addition to extensive background fibrosis and asbestosis with significant pleural calcification. The patient is still short of breath and he is having some limited shortness of breath even at rest. He has a congested cough. Unable to bring up much sputum. His blood culture been negative thus far. His white cell count is elevated at 14.4. Hemoglobin stable at 8.3. He is covered with broad-spectrum antibiotics and he is coming on a combination of Zosyn and Levaquin. Is being diuresis gently with Lasix 40 mg IV push every 12 hours. He is also on bronchodilators with DuoNeb the last treatment [id number]. He'll be transferred to the intensive care unit. He'll be started also on some systemic steroids. On 08/19/2017 I'm seeing this patient in follow-up. The patient is feeling much better. He is less short of breath. This morning he was taken off the BiPAP and is currently on high flow oxygen at 15 L and saturations around 97%. I'm in the process of weaning down the FiO2 down to 12% and down to 10%. Chest x-ray from today shows and it shows multifocal airspace disease/infiltrates with improved aeration of the left upper lobe. There is also an opacity in the right lung base which is probably a pseudotumor. His underlying interstitial fibrosis and asbestosis. The patient is having an change management breakfast today. No nausea. No vomiting. No abdominal pain. No hypotension. No drop in urine output. He remains on a combination of Levaquin and Zosyn as broad- spectrum antibiotic coverage. The latency count is stable at 11.8. No other significant events overnight. The patient is seen again today 08/20/2017 in follow-up in the intensive care unit. He is awake and alert in no acute distress. His chest x-ray shows improved aeration bilaterally. Unfortunately, the patient still requires BiPAP support with an increase in the IPAP of 12 and EPAP of 5. He remains on 70% FiO2 to maintain O2 saturations in the 90s. He was placed on 15 L high flow nasal cannula for breakfast and desaturated fairly quickly into the 80s. He is currently comfortable again on BiPAP. He remains on DuoNeb inhalations 4 times a day and when necessary, IV Lasix, IV Solu-Medrol, antibiotics in the form of Zosyn and Levaquin. White count 14.5. Hemoglobin 8.1. Creatinine remains stable at 0.60. The patient is seen again today 08/21/2017 in follow-up in the intensive care unit. He is currently on the AirVo device at 60 per flow and 80% FiO2. He is maintaining O2 saturations in the mid 90s currently. He is awake and alert in no acute distress. His CAT scan continues to show evidence of groundglass appearance in the bases there is also a right lower lobe and the superior segment noted ovulated soft tissue mass measuring 3.3 x 3.8 x 3.6 cm. There is diffuse areas of groundglass opacities suspect continued infectious/ inflammatory pneumonitis. 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 He is a small right pleural effusion. There is right hilar adenopathy and prominent mediastinal lymph nodes without enlargement. Blood cultures reveal no growth. Urine culture reveals no growth. White count 10.9. Hemoglobin 8.9. Creatinine 0.70. He remains on Zosyn and Levaquin currently. No sputum sample obtained yet. He remains on Lasix 40 mg IV daily, IV Solu-Medrol 40 mg IV every 12 hours, bronchodilators every 4 hours, Pulmicort inhalations twice a day. On 08/22/2017 the patient is being seen in the follow-up. The patient is resting comfortably on a BiPAP at a pressure of 12/5 cm of water and FiO2 of 80% . Note that overnight he was taken off the high flow and placed on BiPAP which she stayed on throughout the night without any major difficulties. His pulse ox remained at 100%. A follow-up chest x-ray is in order for today. Meanwhile the patient is on broad-spectrum antibiotics and I put him on a combination of Merrem and Levaquin. He is also on diuretics and he is on Lasix 40 g every 12 hours is a negative fluid balance and the neck fluid balance over the past 48 hours -2.5 L. His mentation is been appropriate for yesterday afternoon or this morning. He did not require any Haldol. He is hemodynamically stable. The white cell count is not elevated. He is a 22 with a creatinine of 0.7. No other significant events overnight. On 08/24/2017, patient remains on relatively high FiO2 of 65%, and high flow. Patient is on OptiFlow, pulse ox is in the high 80s. Intermittently patient has been on and off BiPAP. He is comfortable, and in no form of distress. Desaturates very easily, continues to diurese, and he remains in negative fluid balance. His Lasix remains at 40 mg IV push every 8 hours. Patient remains on Merrem and Levaquin. Blood cultures are negative so far. Urine cultures are negative. O2 saturations are in the high 80s and low 90s in spite of high FiO2. Objective - Vital Signs Vital signs: Vital Signs Temp 97.9 F 08/24/17 12:00 Pulse 84 08/24/17 13:00 Resp 25 H 08/24/17 13:00 BP 100/56 08/24/17 13:00 Pulse Ox 88 L 08/24/17 13:00 Intake & Output 08/23/17 08/24/17 08/24/17 18:59 06:59 18:59 Intake Total 560 520 780 Output Total 1400 1535 695 Balance -840 -1015 85 Weight 81.7 kg Intake: IV 320 420 240 Meropenem 2 gm In Sodium 100 200 100 Chloride 0.9% 100 ml @ 200 mls/hr IVPB Q8HR JOHNSON Rx#:[id number] Sodium Chloride 0.9% 1, 220 220 140 000 ml @ 20 mls/hr IV . Q24H JOHNSON Rx#:[id number] Oral 240 100 540 Output: Urine 1400 1535 695 Other: Voiding Method Indwelling Catheter Indwelling Catheter Indwelling Catheter - Exam Physical Exam: Revealed an 87-year-old in no distress, however he is on high FiO2 and high flow via OptiFlow. HEENT: Atraumatic, normocephalic, PERRLA, EOMI. [Neck is supple.] [No neck masses.] [No thyromegaly.] [No JVD.] Chest: [Coarse crackles noted bilaterally, no rhonchi, no wheezes.] Cardiac Exam: [Normal S1 and S2, no S3 gallop, no murmur.] Abdomen: [Soft, nontender, no megaly, no rebound, no guarding, normal bowel sounds.] Extremities: [No clubbing, no edema, no cyanosis. Healing right knee surgical incision noted, no evidence of discharge., No swelling. And no erythema.] Neurological Exam: [No focal neurologic deficit.] Skin: As noted above. Lymphatic: No lymphadenopathy. Psychiatric: Normal mood and affect, and normal mental status examination. - Labs CBC & Chem 7: 08/24/17 04:22 08/24/17 04:22 Labs: Abnormal Lab Results - Last 24 Hours (Table) 08/23/17 08/23/17 08/24/17 Range/Units 17:18 21:30 04:22 WBC (3.8-10.6) k/uL RBC (4.30-5.90) m/uL Hgb (13.0-17.5) gm/dL Hct (39.0-53.0) % MCV (80.0-100.0) fL Neutrophils # (1.3-7.7) k/uL Sodium 134 L (137-145) mmol/L Chloride 91 L (98-107) mmol/L Carbon Dioxide 34 H (22-30) mmol/L BUN 34 H (9-20) mg/dL POC Glucose (mg/dL) 137 H 126 H (75-99) mg/dL Calcium 8.3 L (8.4-10.2) mg/dL Magnesium 2.6 H (1.6-2.3) mg/dL 08/24/17 08/24/17 Range/Units 04:22 12:23 WBC 18.4 H (3.8-10.6) k/uL RBC 3.01 L (4.30-5.90) m/uL Hgb 9.6 L (13.0-17.5) gm/dL Hct 30.4 L (39.0-53.0) % MCV 100.9 H (80.0-100.0) fL Neutrophils # 15.7 H (1.3-7.7) k/uL Sodium (137-145) mmol/L Chloride (98-107) mmol/L Carbon Dioxide (22-30) mmol/L BUN (9-20) mg/dL POC Glucose (mg/dL) 133 H (75-99) mg/dL Calcium (8.4-10.2) mg/dL Magnesium (1.6-2.3) mg/dL Assessment and Plan Plan: 1 acute hypoxic respiratory failure with diffuse bilateral pulmonary infiltrates and a follow-up CAT scan of the chest from 08/20/2017 shows reticular nodular airspace disease with or bronchograms in the upper lobes right more than left. The patient also has elevated soft tissue mass measuring 3.8 x 3.3 x 3.6 cm in size and it appears segment of the right lower lobe which could be a malignancy versus a pseudotumor. There is also evidence of centrilobular emphysema and extensive asbestosis with lower lobe pulmonary fibrosis and extensive pleural calcification related to asbestosis. There are acute decompensating factor causing acute hypoxic respiratory failure is the bilateral pneumonia. There may be a component of CHF in addition. The patient is currently on a combination of Merrem and Levaquin. The patient is also on IV Lasix and he has been maintained on negative fluid balance. The patient has been alternating between high flow oxygen and BiPAP. I noted improvement in aeration of the right upper lobe on today's chest x-ray and the patient will be switched to high flow oxygen again and I'm hoping that his saturation would hold above 90%. 2 asbestosis, by history with extensive pleural calcifications and fibrosis 3 coronary artery disease with abnormal troponin consistent with acute non-ST segment elevation myocardial infarction 4 preserved LV function with normal ejection fraction 5 obstructive sleep apnea maintained on CPAP therapy on outpatient basis 7 hyperlipidemia 8 osteoarthritis 9 recent right knee arthroplasty 10 BPH 11 acute non-ST segment elevation myocardial infarction with a troponin max of 1.8. 12 right lower lobe mass, possible pseudotumor or possible underlying bronchogenic carcinoma. Recommendation: Continue present supportive care measures, I reviewed the CT of the chest, and again I am a bit concerned about the possibility of right lower lobe mass or possibly a pseudotumor in the right lower lobe. However the patient is not an ideal candidate for bronchoscopy or diagnostic studies at this point. In the meantime we'll continue to diurese, continue bronchodilators , continue antibiotics, steroids, not quite ready to be moved out of the ICU at this point. Prognosis remains poor and guarded. Time with Patient: Less than 30
[2017-08-24 17:20] LABS: Glucose,Whole Blood 148 mg/dL (75-99)
[2017-08-24] MEDS: TAMSULOSIN 0.4 MG CAP.ER.24H PO SCH (17:26)
[2017-08-24 20:03] LABS: Glucose,Whole Blood 160 mg/dL (75-99)
[2017-08-24] MEDS: ATORVASTATIN 80 MG TAB PO SCH (20:44)
[2017-08-24] MEDS: SERTRALINE 50 MG TAB PO SCH (20:44)
[2017-08-24] MEDS: SODIUM CHLORIDE 0.9% 1,000 ML IV SCH (20:46)
[2017-08-24] MEDS: IPRATROPIUM-ALBUTEROL 3 ML NEB INHALATION PRN (21:21)
[2017-08-25] MEDS: FUROSEMIDE 10 MG/ML 4 ML VIAL IV SCH ×3 (00:01→20:48)
[2017-08-25] MEDS: MEROPENEM 2 GM in SODIUM CHLORIDE 0.9% 100 ML IVPB SCH ×4 (00:02→23:49)
[2017-08-25] MEDS: IPRATROPIUM-ALBUTEROL 3 ML NEB INHALATION PRN (00:24)
[2017-08-25 04:46] LABS: Basophils % (A) 0 %; CH 32.3; CHCM 31.9; Eosinophils % (A) 0 %; HCT 30.9 % (39.0-53.0); HGB 9.7 gm/dL (13.0-17.5); Hypochromasia Moderate; Luc # (Auto) 0.14; Luc % (Auto) 1; Lymphocytes # (A) 1.2 k/uL (1.0-4.8); Lymphocytes % (A) 7 %; MCH 32.1 pg (25.0-35.0); MCHC 31.5 g/dL (31.0-37.0); MCV 101.8 fL (80.0-100.0); Macrocytosis Slight; Monocytes # (A) 0.5 k/uL (0-1.0); Monocytes % (A) 3 %; Neutrophils # (A) 14.7 k/uL (1.3-7.7); Neutrophils % (A) 89 %; RBC 3.04 m/uL (4.30-5.90); RDW 15.5 % (11.5-15.5); WBC 16.5 k/uL (3.8-10.6); WBC (Perox) 16.13
[2017-08-25 04:53] LABS: Anion Gap 6 mmol/L; Blood Urea Nitrogen 39 mg/dL (9-20); Calcium 8.5 mg/dL (8.4-10.2); Carbon Dioxide 38 mmol/L (22-30); Chloride 89 mmol/L (98-107); Glucose 110 mg/dL (74-99); Magnesium 2.8 mg/dL (1.6-2.3); Non-African American GFR(MDRD) >60 (>60 ml/min/1.73 sqM); Potassium 4.3 mmol/L (3.5-5.1); Sodium 133 mmol/L (137-145)
[2017-08-25] MEDS: IPRATROPIUM-ALBUTEROL 3 ML NEB INHALATION SCH ×4 (07:19→19:50)
[2017-08-25] MEDS: BUDESONIDE 1 MG/2 ML NEBU INHALATION SCH ×2 (07:19→19:50)
--- NOTE | 2017-08-25 07:19 | XR ---
EXAMINATION TYPE: XR chest 1V portable DATE OF EXAM: 08/25/2017 COMPARISON: 08/24/2017 HISTORY: Desaturation TECHNIQUE: Single frontal view of the chest is obtained. FINDINGS: Diffuse pleural plaquing is again appreciated with multifocal opacities most confluent in persisting in the right upper lung. Right lateral vertically oriented linear opacity is also thought to relate to a poorer of a pleural plaque as lung markings are seen peripheral to this although atten tion is recommended on follow-up exams. There is somewhat improved aeration of the left lung apex and right lung base. There remains blunting of the costophrenic angles. Degenerative changes of the acro bradley clavicular joints and thoracic spine are again seen. Heart is again upper limits of normal. IMPRESSION: Minimal improved aeration of the right lung base and left lung apex with persistent mult ifocal airspace disease most confluent in the right upper lobe thought to represent multifocal pneumo nya.
[2017-08-25 07:22] LABS: Glucose,Whole Blood 113 mg/dL (75-99)
[2017-08-25] MEDS: INSULIN LISPRO (humaLOG) 300 UNIT/3 ML VIAL SQ SCH ×4 (08:48→20:54)
[2017-08-25] MEDS: MIDODRINE 5 MG TAB PO SCH ×3 (08:48→17:11)
[2017-08-25] MEDS: ENOXAPARIN 40 MG/0.4 ML SYRINGE SQ SCH (08:49)
[2017-08-25] MEDS: ACETAMINOPHEN TAB 325 MG TAB PO PRN ×3 (08:49→23:44)
[2017-08-25] MEDS: FLUDROCORTISONE 0.1 MG TAB PO SCH (08:50)
[2017-08-25] MEDS: ASPIRIN 81 MG PO SCH (08:50)
[2017-08-25] MEDS: POLYETHYLENE GLYCOL 3350 17 GM POWD.PACK PO SCH (08:51)
[2017-08-25] MEDS: PANTOPRAZOLE 40 MG/10 ML VIAL IV SCH (08:51)
[2017-08-25] MEDS: LEVOFLOXACIN 750 MG TAB PO SCH (08:51)
[2017-08-25] MEDS: TIMOLOL 0.5% OPHTH DROPS 5 ML BTL BOTH EYES SCH (08:51)
[2017-08-25] MEDS: predniSONE 10 MG TAB PO SCH (08:51)
[2017-08-25] MEDS: SENNOSIDES-DOCUSATE SODIUM 1 EACH TAB PO SCH ×2 (08:52→20:49)
--- NOTE | 2017-08-25 11:32 | P.PN ---
Subjective Patient remained on high flow oxygen. Nursing staff and able to wean him down any lower. No events overnight. Objective - Vital Signs Vital signs: Vital Signs Temp 97.4 F L 08/25/17 08:00 Pulse 89 08/25/17 11:00 Resp 23 08/25/17 11:00 BP 81/52 08/25/17 11:00 Pulse Ox 95 08/25/17 11:00 Intake & Output 08/24/17 08/25/17 08/25/17 18:59 06:59 18:59 Intake Total 980 520 180 Output Total 1335 1190 700 Balance -355 -670 -520 Weight 82.4 kg 82.4 kg Intake: IV 440 420 180 Meropenem 2 gm In Sodium 200 200 100 Chloride 0.9% 100 ml @ 200 mls/hr IVPB Q8HR JOHNSON Rx#:[id number] Sodium Chloride 0.9% 1, 240 220 80 000 ml @ 20 mls/hr IV . Q24H JOHNSON Rx#:[id number] Oral 540 100 Output: Urine 1335 1190 700 Other: Voiding Method Indwelling Catheter Indwelling Catheter - Exam General: The patient is awake and alert, in no distress Eye: there is normal conjunctiva bilaterally. Neck: The neck is supple, there is no JVD. Cardiovascular: Normal S1-S2, no S3-S4, no murmurs. Respiratory: Lungs with bibasilar crackles Gastrointestinal: Abdomen is soft, nontender Musculoskeletal: There is no pedal edema. Neurological:. Speech is normal. Skin: Skin is warm and dry - Labs CBC & Chem 7: 08/25/17 04:15 08/25/17 04:15 Labs: Abnormal Lab Results - Last 24 Hours (Table) 08/24/17 08/24/17 08/24/17 Range/Units 12:23 17:17 20:02 WBC (3.8-10.6) k/uL RBC (4.30-5.90) m/uL Hgb (13.0-17.5) gm/dL Hct (39.0-53.0) % MCV (80.0-100.0) fL Neutrophils # (1.3-7.7) k/uL Sodium (137-145) mmol/L Chloride (98-107) mmol/L Carbon Dioxide (22-30) mmol/L BUN (9-20) mg/dL Glucose (74-99) mg/dL POC Glucose (mg/dL) 133 H 148 H 160 H (75-99) mg/dL Magnesium (1.6-2.3) mg/dL 08/25/17 08/25/17 08/25/17 Range/Units 04:15 04:15 07:20 WBC 16.5 H (3.8-10.6) k/uL RBC 3.04 L (4.30-5.90) m/uL Hgb 9.7 L (13.0-17.5) gm/dL Hct 30.9 L (39.0-53.0) % MCV 101.8 H (80.0-100.0) fL Neutrophils # 14.7 H (1.3-7.7) k/uL Sodium 133 L (137-145) mmol/L Chloride 89 L (98-107) mmol/L Carbon Dioxide 38 H (22-30) mmol/L BUN 39 H (9-20) mg/dL Glucose 110 H (74-99) mg/dL POC Glucose (mg/dL) 113 H (75-99) mg/dL Magnesium 2.8 H (1.6-2.3) mg/dL Assessment and Plan Plan: 1. Progressive dyspnea with suspected healthcare acquired pneumonia 2. Diastolic heart failure exacerbation with pulmonary edema 3. Coronary artery disease with prior stent placement 4. Chronic orthostatic hypotension 5. Obstructive sleep apnea 6. Acute hypoxic respiratory failure: Still requiring high flow oxygen despite optimization of his fluid balance, use of steroids, and bronchodilators. 7. Suspected right lung mass: We will need further investigation when patient is more stable clinically 8. Underlying pneumonia, antibiotic management by pulmonology currently on Merrem Today, I reviewed his medication list and lab work results. Wean off O2 as tolerated for O2 sats above 90%. Appreciate product development consultant's recommendations. Computed tomography scan of the chest done a few days ago reviewed. Patient prognosis is guarded. No family members at bedside to be updated. I will continue to follow up on him closely.
[2017-08-25 12:08] LABS: Glucose,Whole Blood 122 mg/dL (75-99)
[2017-08-25] MEDS: methylPREDNISolone SOD SUCCI 125 MG/2 ML VIAL IV SCH ×3 (12:09→23:46)
--- NOTE | 2017-08-25 13:23 | P.PN ---
Subjective Progress Note Date: 08/25/17 Principal diagnosis: Acute hypoxic respiratory failure secondary to pneumonia and congestive heart failure. This is an 87-year-old male patient was referred to us from [facility] because of worsening shortness of breath. The patient was on ECF where he was undergoing rehabilitation for shortness of breath and dizziness. He has history of asbestosis with extensive bilateral pleural calcification as evident on previous chest x-rays. Based on his worsening shortness of breath, a CAT scan of the chest was done and it showed bilateral pleural effusion, interstitial edema, a questionable 4 cm right lower lobe mass and extensive bilateral pleural calcification typical of an underlying asbestosis. No significant cough or sputum production. No fever chills or night sweats. The patient was transferred here and I reviewed the CAT scan of the chest. Troponins were minimally elevated and troponin maxed is at 0.3 and 0.7. Echocardiogram from July of this year showed an ejection fraction of 55-60 % with mild TR, mild MR and mild pulmonary hypertension. He has history of coronary artery disease, hyperlipidemia and osteoarthritis along with glaucoma and depression. He has had previous cardiac stents placed. He is known to have coronary artery disease .Note that the patient was in the hospital on 07/28 for a total right knee arthroplasty. The procedure was performed without any complications. Postop the patient had a fall and he had orthostatic hypotension and urinary retention. He had an echocardiogram that showed no significant abnormalities. Doppler of the lower extremity was also negative. He was started on Florinef. He was ultimately sent to [facility] for rehabilitation. On 08/18/2017 I'm seeing this patient for a follow-up. I can't understand that overnight the patient's condition decompensated. He became progressively more hypoxic. Based on that he was placed on a BiPAP at a pressure of 12/5 cm of water and FiO2 of 80%. His current pulse ox is barely above 90%. He is short of breath. I reviewed the chest x-ray from today and there is a dense consolidation of the right upper lobe in addition to extensive background fibrosis and asbestosis with significant pleural calcification. The patient is still short of breath and he is having some limited shortness of breath even at rest. He has a congested cough. Unable to bring up much sputum. His blood culture been negative thus far. His white cell count is elevated at 14.4. Hemoglobin stable at 8.3. He is covered with broad-spectrum antibiotics and he is coming on a combination of Zosyn and Levaquin. Is being diuresis gently with Lasix 40 mg IV push every 12 hours. He is also on bronchodilators with DuoNeb the last treatment [id number]. He'll be transferred to the intensive care unit. He'll be started also on some systemic steroids. On 08/19/2017 I'm seeing this patient in follow-up. The patient is feeling much better. He is less short of breath. This morning he was taken off the BiPAP and is currently on high flow oxygen at 15 L and saturations around 97%. I'm in the process of weaning down the FiO2 down to 12% and down to 10%. Chest x-ray from today shows and it shows multifocal airspace disease/infiltrates with improved aeration of the left upper lobe. There is also an opacity in the right lung base which is probably a pseudotumor. His underlying interstitial fibrosis and asbestosis. 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 No nausea. No vomiting. No abdominal pain. No hypotension. No drop in urine output. He remains on a combination of Levaquin and Zosyn as broad- spectrum antibiotic coverage. The latency count is stable at 11.8. No other significant events overnight. The patient is seen again today 08/20/2017 in follow-up in the intensive care unit. He is awake and alert in no acute distress. His chest x-ray shows improved aeration bilaterally. Unfortunately, the patient still requires BiPAP support with an increase in the IPAP of 12 and EPAP of 5. He remains on 70% FiO2 to maintain O2 saturations in the 90s. He was placed on 15 L high flow nasal cannula for breakfast and desaturated fairly quickly into the 80s. He is currently comfortable again on BiPAP. He remains on DuoNeb inhalations 4 times a day and when necessary, IV Lasix, IV Solu-Medrol, antibiotics in the form of Zosyn and Levaquin. White count 14.5. Hemoglobin 8.1. Creatinine remains stable at 0.60. The patient is seen again today 08/21/2017 in follow-up in the intensive care unit. He is currently on the AirVo device at 60 per flow and 80% FiO2. He is maintaining O2 saturations in the mid 90s currently. He is awake and alert in no acute distress. His CAT scan continues to show evidence of groundglass appearance in the bases there is also a right lower lobe and the superior segment noted ovulated soft tissue mass measuring 3.3 x 3.8 x 3.6 cm. There is diffuse areas of groundglass opacities suspect continued infectious/ inflammatory pneumonitis. 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 He is a small right pleural effusion. There is right hilar adenopathy and prominent mediastinal lymph nodes without enlargement. Blood cultures reveal no growth. Urine culture reveals no growth. White count 10.9. Hemoglobin 8.9. Creatinine 0.70. He remains on Zosyn and Levaquin currently. No sputum sample obtained yet. He remains on Lasix 40 mg IV daily, IV Solu-Medrol 40 mg IV every 12 hours, bronchodilators every 4 hours, Pulmicort inhalations twice a day. On 08/22/2017 the patient is being seen in the follow-up. The patient is resting comfortably on a BiPAP at a pressure of 12/5 cm of water and FiO2 of 80% . Note that overnight he was taken off the high flow and placed on BiPAP which she stayed on throughout the night without any major difficulties. His pulse ox remained at 100%. A follow-up chest x-ray is in order for today. Meanwhile the patient is on broad-spectrum antibiotics and I put him on a combination of Merrem and Levaquin. He is also on diuretics and he is on Lasix 40 g every 12 hours is a negative fluid balance and the neck fluid balance over the past 48 hours -2.5 L. His mentation is been appropriate for yesterday afternoon or this morning. He did not require any Haldol. He is hemodynamically stable. The white cell count is not elevated. He is a 22 with a creatinine of 0.7. No other significant events overnight. On 08/24/2017, patient remains on relatively high FiO2 of 65%, and high flow. Patient is on OptiFlow, pulse ox is in the high 80s. Intermittently patient has been on and off BiPAP. He is comfortable, and in no form of distress. Desaturates very easily, continues to diurese, and he remains in negative fluid balance. His Lasix remains at 40 mg IV push every 8 hours. Patient remains on Merrem and Levaquin. Blood cultures are negative so far. Urine cultures are negative. O2 saturations are in the high 80s and low 90s in spite of high FiO2. On 08/25/2017, patient remains in the ICU, on high FiO2, presently on OptiFlow with 50 L/m, and FiO2 above 70% being titrated to keep O2 saturations above 89% . His pulse ox right now is in the low 90s. Patient seems to be more comfortable, he feels better than being on BiPAP. Continues to desaturate easily. Patient remains on diuretics, however the dose will be cut down because I think we are dealing with residual component of pneumonia at this point more so than congestive heart failure in the chest x-ray appearance today. Patient remains on antibiotics in the form of Merrem and Levaquin. Chest x-ray is definite showing minimal improvement, and I believe the improvement is mostly improvement in his CHF findings, but continues to have multifocal pneumonia and persistent multifocal airspace disease. Labs were reviewed WBC count is 16.5 hemoglobin is 9.7. His basic metabolic profile is relatively normal. Renal profile showed a BUN of 39 creatinine of 0.9. Hence the dose of Lasix was cut down. I have also switch his prednisone to Solu- Medrol. Objective - Vital Signs Vital signs: Vital Signs Temp 97.4 F L 08/25/17 12:00 Pulse 93 08/25/17 12:00 Resp 26 H 08/25/17 12:00 BP 91/57 08/25/17 12:00 Pulse Ox 88 L 08/25/17 12:00 Intake & Output 08/24/17 08/25/17 08/25/17 18:59 06:59 18:59 Intake Total 980 520 220 Output Total 1335 1190 900 Balance -977 -006 -203 Weight 82.4 kg 82.4 kg Intake: IV 440 420 220 Meropenem 2 gm In Sodium 200 200 100 Chloride 0.9% 100 ml @ 200 mls/hr IVPB Q8HR J[facility]NSON Rx#:[id number] Sodium Chloride 0.9% 1, 240 220 120 000 ml @ 20 mls/hr IV . Q24H J[facility]NSON Rx#:[id number] Oral 540 100 Output: Urine 1335 1190 900 Other: Voiding Method Indwelling Catheter Indwelling Catheter - Exam Physical Exam: Revealed an 87-year-old in no distress, however he is on high FiO2 and high flow via OptiFlow. HEENT: Atraumatic, normocephalic, PERRLA, EOMI. [Neck is supple.] [No neck masses.] [No thyromegaly.] [No JVD.] Chest: [Coarse crackles noted bilaterally, no rhonchi, no wheezes.] Cardiac Exam: [Normal S1 and S2, no S3 gallop, no murmur.] Abdomen: [Soft, nontender, no megaly, no rebound, no guarding, normal bowel sounds.] Extremities: [No clubbing, no edema, no cyanosis. Healing right knee surgical incision noted, no evidence of discharge., No swelling. And no erythema.] Neurological Exam: [No focal neurologic deficit.] Skin: As noted above. Lymphatic: No lymphadenopathy. Psychiatric: Normal mood and affect, and normal mental status examination. - Labs CBC & Chem 7: 08/25/17 04:15 08/25/17 04:15 Labs: Abnormal Lab Results - Last 24 Hours (Table) 08/24/17 08/24/17 08/25/17 Range/Units 17: 20:02 04:15 WBC 16.5 H (3.8-10.6) k/uL RBC 3.04 L (4.30-5.90) m/uL Hgb 9.7 L (13.0-17.5) gm/dL Hct 30.9 L (39.0-53.0) % MCV 101.8 H (80.0-100.0) fL Neutrophils # 14.7 H (1.3-7.7) k/uL Sodium (137-145) mmol/L Chloride (98-107) mmol/L Carbon Dioxide (22-30) mmol/L BUN (9-20) mg/dL Glucose (74-99) mg/dL POC Glucose (mg/dL) 148 H 160 H (75-99) mg/dL Magnesium (1.6-2.3) mg/dL 08/25/17 08/25/17 08/25/17 Range/Units 04:15 07:20 12:07 WBC (3.8-10.6) k/uL RBC (4.30-5.90) m/uL Hgb (13.0-17.5) gm/dL Hct (39.0-53.0) % MCV (80.0-100.0) fL Neutrophils # (1.3-7.7) k/uL Sodium 133 L (137-145) mmol/L Chloride 89 L (98-107) mmol/L Carbon Dioxide 38 H (22-30) mmol/L BUN 39 H (9-20) mg/dL Glucose 110 H (74-99) mg/dL POC Glucose (mg/dL) 113 H 122 H (75-99) mg/dL Magnesium 2.8 H (1.6-2.3) mg/dL Assessment and Plan Plan: 1 acute hypoxic respiratory failure with diffuse bilateral pulmonary infiltrates and a follow-up CAT scan of the chest from 08/20/2017 shows reticular nodular airspace disease with or bronchograms in the upper lobes right more than left. The patient also has elevated soft tissue mass measuring 3.8 x 3.3 x 3.6 cm in size and it appears segment of the right lower lobe which could be a malignancy versus a pseudotumor. There is also evidence of centrilobular emphysema and extensive asbestosis with lower lobe pulmonary fibrosis and extensive pleural calcification related to asbestosis. There are acute decompensating factor causing acute hypoxic respiratory failure is the bilateral pneumonia. There may be a component of CHF in addition. The patient is currently on a combination of Merrem and Levaquin. The patient is also on IV Lasix and he has been maintained on negative fluid balance. The patient has been alternating between high flow oxygen and BiPAP. I noted improvement in aeration of the right upper lobe on today's chest x-ray and the patient will be switched to high flow oxygen again and I'm hoping that his saturation would hold above 90%. 2 asbestosis, by history with extensive pleural calcifications and fibrosis 3 coronary artery disease with abnormal troponin consistent with acute non-ST segment elevation myocardial infarction 4 preserved LV function with normal ejection fraction 5 obstructive sleep apnea maintained on CPAP therapy on outpatient basis 7 hyperlipidemia 8 osteoarthritis 9 recent right knee arthroplasty 10 BPH 11 acute non-ST segment elevation myocardial infarction with a troponin max of 1.8. 12 right lower lobe mass, possible pseudotumor or possible underlying bronchogenic carcinoma. Recommendation: Continue present supportive care measures, had a long discussion with the patient and his , patient remains undecided about his CODE STATUS, at times he told me that he did not want life support/mechanical ventilation, and at times he seems to be changing his mind. At this point the patient is undecided, however his overall prognosis remains very poor and guarded, patient is not ready to be transferred out of the ICU, he remains critically ill, and I updated his on his condition today at bedside. Critical care time is 32 minutes. Time with Patient: Greater than 30
[2017-08-25 17:11] LABS: Glucose,Whole Blood 192 mg/dL (75-99)
[2017-08-25] MEDS: TAMSULOSIN 0.4 MG CAP.ER.24H PO SCH (17:12)
[2017-08-25] MEDS: SERTRALINE 50 MG TAB PO SCH (20:49)
[2017-08-25] MEDS: ATORVASTATIN 80 MG TAB PO SCH (20:49)
[2017-08-25 20:56] LABS: Glucose,Whole Blood 158 mg/dL (75-99)
[2017-08-25] MEDS: SODIUM CHLORIDE 0.9% 1,000 ML IV SCH (20:56)
[2017-08-25] MEDS: traMADol 50 MG TAB PO PRN (21:54)
[2017-08-26] MEDS: BUDESONIDE 1 MG/2 ML NEBU INHALATION SCH (07:28)
[2017-08-26] MEDS: IPRATROPIUM-ALBUTEROL 3 ML NEB INHALATION SCH ×2 (07:28→11:21)
[2017-08-26] MEDS: methylPREDNISolone SOD SUCCI 125 MG/2 ML VIAL IV SCH (08:01)
[2017-08-26] MEDS: FUROSEMIDE 10 MG/ML 4 ML VIAL IV SCH (08:01)
[2017-08-26 08:02] LABS: Glucose,Whole Blood 187 mg/dL (75-99)
[2017-08-26] MEDS: PANTOPRAZOLE 40 MG/10 ML VIAL IV SCH (08:02)
[2017-08-26] MEDS: LEVOFLOXACIN 750 MG TAB PO SCH (08:02)
[2017-08-26] MEDS: FLUDROCORTISONE 0.1 MG TAB PO SCH (08:02)
[2017-08-26] MEDS: INSULIN LISPRO (humaLOG) 300 UNIT/3 ML VIAL SQ SCH (08:02)
[2017-08-26] MEDS: ASPIRIN 81 MG PO SCH (08:02)
[2017-08-26] MEDS: ENOXAPARIN 40 MG/0.4 ML SYRINGE SQ SCH (08:02)
[2017-08-26] MEDS: MIDODRINE 5 MG TAB PO SCH (08:03)
[2017-08-26] MEDS: TIMOLOL 0.5% OPHTH DROPS 5 ML BTL BOTH EYES SCH (08:03)
[2017-08-26] MEDS: SENNOSIDES-DOCUSATE SODIUM 1 EACH TAB PO SCH (08:04)
[2017-08-26] MEDS: POLYETHYLENE GLYCOL 3350 17 GM POWD.PACK PO SCH (08:04)
[2017-08-26] MEDS: MEROPENEM 2 GM in SODIUM CHLORIDE 0.9% 100 ML IVPB SCH (08:07)
[2017-08-26 09:02] VITALS: TEMP 98.2
[2017-08-26] MEDS: ACETAMINOPHEN TAB 325 MG TAB PO PRN (10:48)
[2017-08-26 11:17] VITALS: BMI 26.8
--- NOTE | 2017-08-26 11:23 | P.DS ---
Providers Date of admission: 08/16/17 19:35 Expected date of discharge: 08/26/17 Attending physician: Espinoza Mayberry Consults: 08/16/17 23:08 Consult Physician Urgent Consulting Provider: Mercy Perez Consult Reason/Comments: elevated troponin Do you want consulting provider notified?: Already Contacted 08/17/17 09:46 Consult Physician Urgent Consulting Provider: Nickie Kapadia Consult Reason/Comments: hypoxia, pna Do you want consulting provider notified?: Yes Primary care physician: [facility] Course: This is a 87-year-old gentleman with complex past medical history noted below who presented to the hospital with worsening shortness of breath and was found to have acute hypoxic respiratory failure. Was managed aggressively. He was seen and evaluated by multiple specialists. His overall condition did not improve and he still required high flow oxygen unable to be weaned down. Eventually, patient and his discussed goals of care with medical staff and elected to pursue comfort measures/hospice care. Patient will be discharged home with hospice. Below his abuse of his medical problems. 1. Progressive dyspnea with suspected healthcare acquired pneumonia 2. Diastolic heart failure exacerbation with pulmonary edema 3. Coronary artery disease with prior stent placement 4. Chronic orthostatic hypotension 5. Obstructive sleep apnea 6. Acute hypoxic respiratory failure: Still requiring high flow oxygen despite optimization of his fluid balance, use of steroids, and bronchodilators. 7. Suspected right lung mass: Noted on computed tomography scan of the chest 8. Underlying pneumonia, treated with broad-spectrum antibiotic Patient Condition at Discharge: Poor Plan - Discharge Summary New Discharge Prescriptions: New LORazepam [Ativan] 1 mg PO TID #30 tab MORPHINE ORAL SOLN 20mg/mL [Roxanol Oral Soln Conc 20MG/ML] 5 mg PO Q4H PRN # 1 bottle PRN Reason: Pain Continue Polyethylene Glycol 3350 [Miralax] 17 gm PO DAILY Timolol 0.5% Ophth Soln [Timoptic 0.5% Ophth Soln] 1 drop BOTH EYES DAILY Tamsulosin [Flomax] 0.4 mg PO PC-SUPPER cap Acetaminophen Tab [Tylenol] 650 mg PO Q6HR PRN tab PRN Reason: Fever And/ Or Pain Fludrocortisone [Florinef] 0.2 mg PO DAILY #30 tab Midodrine [ProAmatine] 10 mg PO AC-TID #90 tab Discontinued Vits A,C,E/Lutein/Minerals [Ocuvite with Lutein Tablet] 1 tab PO DAILY Cholecalciferol [Vitamin D3] 2,000 unit PO BID Atorvastatin [Lipitor] 80 mg PO HS traMADol HCl [Ultram] 50 mg PO Q6H PRN PRN Reason: Pain Sertraline [Zoloft] 50 mg PO HS Cyanocobalamin (Vitamin B-12) [Vitamin B12] 2,500 mcg PO SUTH Sennosides-Docusate Sodium [Senokot-S] 1 tab PO BID #60 tablet Aspirin 81 mg PO BID Discharge Medication List Polyethylene Glycol 3350 [Miralax] 17 gm PO DAILY 04/30/15 [History] Timolol 0.5% Ophth Soln [Timoptic 0.5% Ophth Soln] 1 drop BOTH EYES DAILY [History] Tamsulosin [Flomax] 0.4 mg PO PC-SUPPER cap 08/03/17 [Rx] Acetaminophen Tab [Tylenol] 650 mg PO Q6HR PRN tab 08/06/17 [Rx] Fludrocortisone [Florinef] 0.2 mg PO DAILY #30 tab 08/06/17 [Rx] Midodrine [ProAmatine] 10 mg PO AC-TID #90 tab 08/06/17 [Rx] LORazepam [Ativan] 1 mg PO TID #30 tab 08/26/17 [Rx] MORPHINE ORAL SOLN 20mg/mL [Roxanol Oral Soln Conc 20MG/ML] 5 mg PO Q4H PRN #1 bottle 08/26/17 [Rx] Discharge Disposition: HOME WITH HOSPICE
[2017-08-26] MEDS ORDERED: MORPHINE SULFATE 2 MG/ML SYRINGE IVP ONE (11:31)
[2017-08-26] MEDS ORDERED: LORazepam 2 MG/ML INJ IV STA (11:34)
--- NOTE | 2017-08-26 12:36 | P.PN ---
Subjective Progress Note Date: 08/26/17 Principal diagnosis: Acute hypoxic respiratory failure secondary to pneumonia and congestive heart failure. This is an 87-year-old male patient was referred to us from [facility] because of worsening shortness of breath. The patient was on ECF where he was undergoing rehabilitation for shortness of breath and dizziness. He has history of asbestosis with extensive bilateral pleural calcification as evident on previous chest x-rays. Based on his worsening shortness of breath, a CAT scan of the chest was done and it showed bilateral pleural effusion, interstitial edema, a questionable 4 cm right lower lobe mass and extensive bilateral pleural calcification typical of an underlying asbestosis. No significant cough or sputum production. No fever chills or night sweats. The patient was transferred here and I reviewed the CAT scan of the chest. Troponins were minimally elevated and troponin maxed is at 0.3 and 0.7. Echocardiogram from July of this year showed an ejection fraction of 55-60 % with mild TR, mild MR and mild pulmonary hypertension. He has history of coronary artery disease, hyperlipidemia and osteoarthritis along with glaucoma and depression. He has had previous cardiac stents placed. He is known to have coronary artery disease .Note that the patient was in the hospital on 07/28 for a total right knee arthroplasty. The procedure was performed without any complications. Postop the patient had a fall and he had orthostatic hypotension and urinary retention. He had an echocardiogram that showed no significant abnormalities. Doppler of the lower extremity was also negative. He was started on Florinef. He was ultimately sent to [facility] for rehabilitation. On 08/18/2017 I'm seeing this patient for a follow-up. I can't understand that overnight the patient's condition decompensated. He became progressively more hypoxic. Based on that he was placed on a BiPAP at a pressure of 12/5 cm of water and FiO2 of 80%. His current pulse ox is barely above 90%. He is short of breath. I reviewed the chest x-ray from today and there is a dense consolidation of the right upper lobe in addition to extensive background fibrosis and asbestosis with significant pleural calcification. The patient is still short of breath and he is having some limited shortness of breath even at rest. He has a congested cough. Unable to bring up much sputum. His blood culture been negative thus far. His white cell count is elevated at 14.4. Hemoglobin stable at 8.3. He is covered with broad-spectrum antibiotics and he is coming on a combination of Zosyn and Levaquin. Is being diuresis gently with Lasix 40 mg IV push every 12 hours. He is also on bronchodilators with DuoNeb the last treatment [id number]. He'll be transferred to the intensive care unit. He'll be started also on some systemic steroids. On 08/19/2017 I'm seeing this patient in follow-up. The patient is feeling much better. He is less short of breath. This morning he was taken off the BiPAP and is currently on high flow oxygen at 15 L and saturations around 97%. I'm in the process of weaning down the FiO2 down to 12% and down to 10%. Chest x-ray from today shows and it shows multifocal airspace disease/infiltrates with improved aeration of the left upper lobe. There is also an opacity in the right lung base which is probably a pseudotumor. His underlying interstitial fibrosis and asbestosis. 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 No nausea. No vomiting. No abdominal pain. No hypotension. No drop in urine output. He remains on a combination of Levaquin and Zosyn as broad- spectrum antibiotic coverage. The latency count is stable at 11.8. No other significant events overnight. The patient is seen again today 08/20/2017 in follow-up in the intensive care unit. He is awake and alert in no acute distress. His chest x-ray shows improved aeration bilaterally. Unfortunately, the patient still requires BiPAP support with an increase in the IPAP of 12 and EPAP of 5. He remains on 70% FiO2 to maintain O2 saturations in the 90s. He was placed on 15 L high flow nasal cannula for breakfast and desaturated fairly quickly into the 80s. He is currently comfortable again on BiPAP. He remains on DuoNeb inhalations 4 times a day and when necessary, IV Lasix, IV Solu-Medrol, antibiotics in the form of Zosyn and Levaquin. White count 14.5. Hemoglobin 8.1. Creatinine remains stable at 0.60. The patient is seen again today 08/21/2017 in follow-up in the intensive care unit. He is currently on the AirVo device at 60 per flow and 80% FiO2. He is maintaining O2 saturations in the mid 90s currently. He is awake and alert in no acute distress. His CAT scan continues to show evidence of groundglass appearance in the bases there is also a right lower lobe and the superior segment noted ovulated soft tissue mass measuring 3.3 x 3.8 x 3.6 cm. There is diffuse areas of groundglass opacities suspect continued infectious/ inflammatory pneumonitis. 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 He is a small right pleural effusion. There is right hilar adenopathy and prominent mediastinal lymph nodes without enlargement. Blood cultures reveal no growth. Urine culture reveals no growth. White count 10.9. Hemoglobin 8.9. Creatinine 0.70. He remains on Zosyn and Levaquin currently. No sputum sample obtained yet. He remains on Lasix 40 mg IV daily, IV Solu-Medrol 40 mg IV every 12 hours, bronchodilators every 4 hours, Pulmicort inhalations twice a day. On 08/22/2017 the patient is being seen in the follow-up. The patient is resting comfortably on a BiPAP at a pressure of 12/5 cm of water and FiO2 of 80% . Note that overnight he was taken off the high flow and placed on BiPAP which she stayed on throughout the night without any major difficulties. His pulse ox remained at 100%. A follow-up chest x-ray is in order for today. Meanwhile the patient is on broad-spectrum antibiotics and I put him on a combination of Merrem and Levaquin. He is also on diuretics and he is on Lasix 40 g every 12 hours is a negative fluid balance and the neck fluid balance over the past 48 hours -2.5 L. His mentation is been appropriate for yesterday afternoon or this morning. He did not require any Haldol. He is hemodynamically stable. The white cell count is not elevated. He is a 22 with a creatinine of 0.7. No other significant events overnight. On 08/24/2017, patient remains on relatively high FiO2 of 65%, and high flow. Patient is on OptiFlow, pulse ox is in the high 80s. Intermittently patient has been on and off BiPAP. He is comfortable, and in no form of distress. Desaturates very easily, continues to diurese, and he remains in negative fluid balance. His Lasix remains at 40 mg IV push every 8 hours. Patient remains on Merrem and Levaquin. Blood cultures are negative so far. Urine cultures are negative. O2 saturations are in the high 80s and low 90s in spite of high FiO2. On 08/25/2017, patient remains in the ICU, on high FiO2, presently on OptiFlow with 50 L/m, and FiO2 above 70% being titrated to keep O2 saturations above 89% . His pulse ox right now is in the low 90s. Patient seems to be more comfortable, he feels better than being on BiPAP. Continues to desaturate easily. Patient remains on diuretics, however the dose will be cut down because I think we are dealing with residual component of pneumonia at this point more so than congestive heart failure in the chest x-ray appearance today. Patient remains on antibiotics in the form of Merrem and Levaquin. Chest x-ray is definite showing minimal improvement, and I believe the improvement is mostly improvement in his CHF findings, but continues to have multifocal pneumonia and persistent multifocal airspace disease. Labs were reviewed WBC count is 16.5 hemoglobin is 9.7. His basic metabolic profile is relatively normal. Renal profile showed a BUN of 39 creatinine of 0.9. Hence the dose of Lasix was cut down. I have also switch his prednisone to Solu- Medrol. Reevaluated today on 08/26/2017, patient is basically about the same as he was above. No labs were drawn, no x-rays were done today, family and the patient discussed with hospice staff, patient would like to go home on home hospice, and that is being arranged for today. Objective - Vital Signs Vital signs: Vital Signs Temp 98.2 F 08/26/17 08:00 Pulse 101 H 08/26/17 09:00 Resp 20 08/26/17 09:00 BP 100/59 08/26/17 09:00 Pulse Ox 92 L 08/26/17 09:00 Intake & Output 08/25/17 08/26/17 08/26/17 18:59 06:59 18:59 Intake Total 460 300 140 Output Total 1270 1085 190 Balance -810 -785 -50 Weight 82.4 kg 82.4 kg 82.4 kg Intake: IV 460 300 140 Meropenem 2 gm In Sodium 200 100 100 Chloride 0.9% 100 ml @ 200 mls/hr IVPB Q8HR [facility] Rx#:[id number] Sodium Chloride 0.9% 1, 260 200 40 000 ml @ 20 mls/hr IV . Q24H [facility] Rx#:[id number] Output: Urine 1270 1085 190 Other: Voiding Method Indwelling Catheter Indwelling Catheter Indwelling Catheter - Exam Physical Exam: Revealed an 87-year-old in no distress, however he is on high FiO2 and high flow via OptiFlow. HEENT: Atraumatic, normocephalic, PERRLA, EOMI. [Neck is supple.] [No neck masses.] [No thyromegaly.] [No JVD.] Chest: [Coarse crackles noted bilaterally, no rhonchi, no wheezes.] Cardiac Exam: [Normal S1 and S2, no S3 gallop, no murmur.] Abdomen: [Soft, nontender, no megaly, no rebound, no guarding, normal bowel sounds.] Extremities: [No clubbing, no edema, no cyanosis. Healing right knee surgical incision noted, no evidence of discharge., No swelling. And no erythema.] Neurological Exam: [No focal neurologic deficit.] Skin: As noted above. Lymphatic: No lymphadenopathy. Psychiatric: Normal mood and affect, and normal mental status examination. - Labs CBC & Chem 7: 08/25/17 04:15 08/25/17 04:15 Labs: Abnormal Lab Results - Last 24 Hours (Table) 08/25/17 08/25/17 08/26/17 Range/Units 17:09 20:53 08:00 POC Glucose (mg/dL) 192 H 158 H 187 H (75-99) mg/dL Assessment and Plan Plan: 1 acute hypoxic respiratory failure with diffuse bilateral pulmonary infiltrates and a follow-up CAT scan of the chest from 08/20/2017 shows reticular nodular airspace disease with or bronchograms in the upper lobes right more than left. The patient also has elevated soft tissue mass measuring 3.8 x 3.3 x 3.6 cm in size and it appears segment of the right lower lobe which could be a malignancy versus a pseudotumor. There is also evidence of centrilobular emphysema and extensive asbestosis with lower lobe pulmonary fibrosis and extensive pleural calcification related to asbestosis. There are acute decompensating factor causing acute hypoxic respiratory failure is the bilateral pneumonia. There may be a component of CHF in addition. The patient is currently on a combination of Merrem and Levaquin. The patient is also on IV Lasix and he has been maintained on negative fluid balance. The patient has been alternating between high flow oxygen and BiPAP. I noted improvement in aeration of the right upper lobe on today's chest x-ray and the patient will be switched to high flow oxygen again and I'm hoping that his saturation would hold above 90%. 2 asbestosis, by history with extensive pleural calcifications and fibrosis 3 coronary artery disease with abnormal troponin consistent with acute non-ST segment elevation myocardial infarction 4 preserved LV function with normal ejection fraction 5 obstructive sleep apnea maintained on CPAP therapy on outpatient basis 7 hyperlipidemia 8 osteoarthritis 9 recent right knee arthroplasty 10 BPH 11 acute non-ST segment elevation myocardial infarction with a troponin max of 1.8. 12 right lower lobe mass, possible pseudotumor or possible underlying bronchogenic carcinoma. Recommendation: Patient's and 's wishes will be respected, both would like to have him home on home hospice, this will be done today, and arrangements are being made at this point. Time with Patient: Less than 30
[2017-08-26 14:58] VITALS: BP 96/56; PULSE 102; RESP 24
[2017-08-26] MEDS ORDERED: PROPOFOL 1,000 MG/100 ML VIAL IV ONE (16:36)
== END 2017-08-26 15:15 | disposition hospice, home (50) | DRG 280 ==
LOC: EC 19:25 → 6SEL 19:35 → 6ICU 08-18 10:37
PROVIDERS: ADMIT Internal Medicine; ATTEND Internal Medicine
DX: I50.33 Acute on chronic diastolic (congestive) heart failure (principal); J18.9 Pneumonia, unspecified organism; I21.4 Non-ST elevation (NSTEMI) myocardial infarction; J96.01 Acute respiratory failure with hypoxia; I27.20 Pulmonary hypertension, unspecified; I08.1 Rheumatic disorders of both mitral and tricuspid valves; J43.2 Centrilobular emphysema; D64.9 Anemia, unspecified; Y95 Nosocomial condition; I25.10 Atherosclerotic heart disease of native coronary artery without angina pectoris; J92.0 Pleural plaque with presence of asbestos; F32.9 Major depressive disorder, single episode, unspecified; E78.5 Hyperlipidemia, unspecified; N40.0 Benign prostatic hyperplasia without lower urinary tract symptoms; G47.33 Obstructive sleep apnea (adult) (pediatric); I95.1 Orthostatic hypotension; M19.91 Primary osteoarthritis, unspecified site; R91.8 Other nonspecific abnormal finding of lung field; H40.9 Unspecified glaucoma; Z79.82 Long term (current) use of aspirin; Z79.899 Other long term (current) drug therapy; Z95.5 Presence of coronary angioplasty implant and graft; Z96.641 Presence of right artificial hip joint; Z96.653 Presence of artificial knee joint, bilateral; Z98.42 Cataract extraction status, left eye; Z98.41 Cataract extraction status, right eye; Z87.891 Personal history of nicotine dependence; Z91.81 History of falling; Z77.090 Contact with and (suspected) exposure to asbestos; Z88.5 Allergy status to narcotic agent
CPT/HCPCS: 36600; 71010; 71260; 80048; 80061; 81003; 82550; 82553; 82805; 83735; 83880; 84100; 84132; 84484; 85025; 85027; 87040; 87086; 94640; 94660; 94760; 99285